=== PATIENT | female | born 1960 | race Caucasian/White ===

== ENCOUNTER 2018-04-19 14:00 | Emergency (ER) | payer MEDICAID, SELFPAY ==
[2018-04-19 14:09] VITALS: BP 137/85; PULSE 78; RESP 22; TEMP 36.7; O2SAT 97
--- NOTE | 2018-04-19 14:28 | ED.GENADUL_ITS ---
Disposition Clinical Impression: Periorbital cellulitis of left eye Disposition: HOME Condition: Good Instructions: Periorbital Cellulitis in Adults (ED) Additional Instructions: Please use warm compresses multiple times throughout the day. Please take the antibiotic as directed. Please use Tylenol Motrin for pain. If you notice any vision changes, worsening pain, fever, severe discharge, please return immediately for reevaluation. If you notice any worsening of your symptoms, or any new symptoms such as vomiting, diarrhea, fever, chills, shortness of breath , chest pain, numbness, weakness, or fainting , please return immediately to the emergency department for reevaluation. Please follow up with your primary care provider as soon as possible for reassessment and reevaluation. As always, it was a pleasure participating in your medical care today. Prescriptions: Clindamycin [Cleocin] 450 mg PO TID 7 Days cap Referrals: Renetta Flaherty [Primary Care Provider] - Medical Decision Making - Medical Decision Making This is a 58-year-old female who presents for evaluation of eye swelling. Her left lower eyelid is consistent with mild periorbital cellulitis. She has no significant drainage, no pain on movement of the eye whatsoever, no swelling or tenderness of the upper eyelid. Vision is intact. Swelling is very minimal, and redness is mild. No evidence of large abscess, or active purulent drainage. She is not on any immunosuppressants. She is not a contact lens wear. At this time I feel that her symptoms are secondary to very mild cellulitis which was most likely secondary to skin irritation and scratching from her dry eye before. Because of this I will start the patient on clindamycin, as well as recommend continued warm compresses for any plugged gland, and Tylenol Motrin. We discussed red flags which returned the patient understands. This time there is clinically no evidence of infection of the eye itself/septal cellulitis since there is only minimal pain, and no signs of systemic infection. No pain with movement of the eye. Feel the patient be safely discharged home. We discussed red flags which to return the patient understands. I have extensively reviewed the treatment plan and discharge instructions with the patient and their family. I have addressed all patient concerns at this time. The patient and family was made aware of what symptoms to monitor for that would warrant a return to the emergency department. Discussed the plan with the patient and family, they demonstrate verbal understanding and agreement with our assessment and plan at this time. History of Present Illness - General Chief complaint: EyeProblem Stated complaint: SWOLLEN EYE Time Seen by Provider: 04/19/18 14:25 - History of Present Illness Initial comments: This is a 58-year-old female with a past medical history of vitamin D deficiency, fibromyalgia, COPD who presents today for left eye pain. The patient states that last week she has been having mild dryness on her lower eyelid. She has been scratching it vigorously over the last 1-2 days. Then this morning when she woke up she noted notable swelling in her lower lid. There is also some associated redness, and minimal warmth. She does admit to an associated symptom of minimal drainage yesterday. No radiation of her symptoms. The patient has no vision changes, no pain with moving her eye. No systemic symptoms of fever or chills. She has no history of immunocompromise, does not take steroids. She has no other complaints at this time. She denies any recent surgeries. Denies any pertinent family history. - Related Data Bupropion HCl [Bupropion HCl Sr] 150 mg PO BID 11/08/12 Cetirizine HCl 10 mg PO DAILY 11/08/12 Gabapentin 300 mg PO TID 11/08/12 Hydrocodone Bit/Acetaminophen [Hydrocodon-Acetaminophn 10650] 1 each PO Q6H PRN 11/08/12 Meloxicam 7.5 mg PO DAILY 11/08/12 Omeprazole 20 mg PO DAILY 11/08/12 Tramadol HCl 2 tab PO Q8H PRN 11/08/12 Ibuprofen 800 mg PO TID #60 tablet 10/06/15 Albuterol Sulfate [Proventil Hfa] 2 puff IN PRN PRN 11/07/16 Clindamycin [Cleocin] 450 mg PO TID 7 Days cap 04/19/18 Allergies Allergy/AdvReac Type Severity Reaction Status Date / Time aspartame AdvReac Intermediate Other (See Unverified 04/19/18 14:18 Comment) codeine [Codeine] AdvReac Intermediate Headache Unverified 11/07/16 13:19 and vomiting Penicillins AdvReac Intermediate vomiting Unverified 11/07/16 13:19 Review of Systems Other: 10 point review of systems was performed, pertinent positives and negatives are noted in the history of present illness. Past Medical History - Past Medical History Medical history: arthritis, GERD Chronic back pain Family history: CAD/CA, hypertension - Social History Drug use: marijuana General Exam - Other Other exam information: 1.Const: Well-nourished, Well-developed, appearing stated age 2.Eyes: PERRL, no conjunctival injection, the patient's left lower lid is notably swelling, there is no active drainage. No evidence of focal chalazion or hordeolum. No conjunctival injection. No pain with movement of the eye. Normal vision bilaterally. EOMI, No nystagmus. no proptosis. No hyphema, no signs of trauma around the eye, no periorbital emphysema. Visual acuity as documented in chart. No evidence of swelling or pain for the upper lid. 3.ENT: Atraumatic external nose and ears. Moist MM. Neck: Symmetric, trachea midline, No thyromegaly. 4.CVS: +S1/S2, No murmurs or gallops. Peripheral pulses 2+ and equal in all extremities. Brisk capillary refill in all extremities. 5.RESP: Unlabored respiratory effort. Clear to auscultation bilaterally. No wheezes rales or rhonchi 6.GI: Soft, Nontender/Nondistended, No hepatosplenomegaly. No guarding or rebound. 7.MSK: Normocephalic/Atraumatic, Extremities w/o deformity or ttp No cyanosis or clubbing, Normal movement of all extremities 8.Skin: Warm, Dry. No rashes or lesions. 9.Neuro: diplomatic interpreter/translator II-XII grossly intact. Sensation grossly intact, no focal neurologic deficits. 10.Psych: (AAO) x3. Appropriate mood and affect Course Vital Signs - 24 hr 04/19/18 14:09 Temperature 36.7 C Pulse 78 Respiratory 22 Rate Blood Pressure 137/85 Pulse Oximetry 97
== END 2018-04-19 15:14 | disposition home or self-care (01) ==
LOC: ER 04-20 10:14
PROVIDERS: Emergency Provider Student in an Organized Health Care Education/Training Program; PCP Nurse Practitioner Family
DX: L03.213 Periorbital cellulitis (principal); J44.9 Chronic obstructive pulmonary disease, unspecified
CPT/HCPCS: 99283

== ENCOUNTER 2022-02-13 20:41 | Observation (INO) | payer MEDICAID, SELFPAY ==
[2022-02-13] VITALS (90 sets, daily range): BP systolic 102–147; BP diastolic 64–102; PULSE 118–137; RESP 12–42; O2SAT 78–98
--- NOTE | 2022-02-13 20:45 | RT.EKG_ITS ---
APPROVED REPORT Exam: Resting ECG Reason for Exam: SHORTNESS OF BREATH Patient Location: E HR:131 bpm ECG Measurements Heart Rate 131 AXIS NH 110 P 78 QRSd 81 QRS 83 QT 304 T 35 QTc 448 Conclusion Sinus tachycardia...rate> 99 Probable left atrial enlargement...P >50mS, <-0.10mV V1 sinus tachycardia, normal axis, normal intervals
--- NOTE | 2022-02-13 20:45 | DI.RAD_ITS ---
Exam(s) XR PORTABLE CHEST AP EXAM: XR PORTABLE CHEST AP CLINICAL HISTORY: sob TECHNIQUE: 2D digital imaging was performed of the chest. One image was obtained. An AP view was ob tained. COMPARISON: CR LEFT RIBS TO INCLUDE CXR from 12/31/2011 FINDINGS: MEDIASTINUM: Normal. HEART: Normal. PULMONARY VASCULATURE: Normal. LUNGS: There are mild increased lung markings in the bases. This may represent atelectasis. Develop ing pneumonia cannot be excluded. Please correlate clinically. PLEURAL SPACE: No pleural effusion or pneumothorax. BONE:Within normal limits for the patient's age. OTHER FINDINGS:Normal. IMPRESSION: Increased lung markings in the bases bilaterally. This may represent atelectasis or scarring. Devel oping pneumonia cannot be excluded. Please correlate clinically. DATA REPOSITORY: RADIATION DOSE DELIVERED:
--- OUTSIDE RECORDS SUMMARY | 2022-02-13 20:49 | XMS_ITS | Encounter Summary ---
:1960 Author Organization [facility] [place] [address] Care Team Providers Name Role Phone Eloy Levy MD Primary Care Provider Reason for Visit Reason Comments Snoring Encounter Details Date Type Department Care Team Description 08/09/[address] [facility] Natividad Hsu MD SHA (obstructive sleep apnea) (Primary D x); [facility] Snoring [address] [place] [address] SLEEP DISORDERS [phone] [place], [place] [address] (Wo rk) Social History Tobacco Use Types Packs/Day Years Used Date Never Assessed Alcohol Use Standard Drinks/Week Comments No 0 (1 standard drink = 0.6 oz pure alcoho l) Sex Assigned at Date Recorded Not on file documented as of this encounter Last Filed Vital Signs Vital Sign Reading Time Taken Comments Blood Pressure 142/99 08/09/2011 9:38 AM EST Pulse 88 08/09/2011 9:38 AM EST Temperature - - Respiratory Rate - - Oxygen Saturation - - Inhaled Oxygen Concentration - - Weight 100.2 kg (220 lb 14.4 oz) 08/09/2011 9:38 AM EST Height 165.1 cm (5' 5) 08/09/2011 9:38 AM EST Body Mass Index 36.76 08/09/2011 9:38 AM EST documented in this encounter Progress Notes Natividad Hsu MD - 08/09/2011 8:56 AM EST Sleep Medicine Consultation Note HPI: Ms. Jamir Severino is a 51 y.o. female seen at the request of Dr. Chinyere Jackson for advice regarding suspected obstructive sleep apnea. Sleep Apnea Risk: Snoring: yes Severity: loudly Frequency: every night Modifying factors: supine worse Over time: not sure how Observed Apneas: yes Mouth Breathing: yes, day as well, nasal fractures Dry Mouth: yes Nocturnal Gasping: yes Nasal Obstruction: yes Weight: gaining On pain medications for arthritis, bursitis - tossing and turning Sleep Pattern: Location: bedroom Bed/Recliner/Wedge: bed, 2 pillows Position: side Bedtime: 8:30, watches TV 30 - 60 min Lights out: 9:00 - 9:30 Latency: instant;u Awakenings: several times, sometimes long and sometimes Wake time: 7:30am Daytime Symptoms: [place]: 10/24 - ugly in the morning, nonrefreshing sleep Naps: couple times a week Involuntary Dozing:no Cognitive Symptoms: yes Driving: not driving now because anxiety Close calls related to sleepiness: no Accidents related to sleepiness: no Sleep Symptoms: Parasomnias: Sleep Walking: no Dream Enactment: no Bruxism: yes, no mouth guard, wears dentures Motor: RLS: no PLMS: no Narcolepsy: Hallucinations: no Paralysis: no Cataplexy: not done Past/Childhood Sleep History: probably snored, Family History: Family history of sleep disorders: mom and son snores Past Medical History: GERD Anxiety and depression Lower back pain, neck and shoulder - arthritis and bursitis Claustrophobia SOB on occasion, ? Asthma, cold air triggers, rare lung meds, quit smoking May Past Surgical History: Carpal tunnel bilateral Social History: Employment: disability, working on [email or web address] - [employer], [place] Alcohol: no Smoking: no Other drugs: no Caffeine: 3 cups of coffee Family: partner, 2 dogs, son/girlfriend 2 kids, cat, 2 rats, another 2 sons/girlfriend and child. ROS: CON: weight change: yes ENT: nasal obstruction: yes NEURO: sleep related headaches: often associated with sleep CV: chest pain: no Palpitations: no LE edema: sometimes PUL: ALEXANDER: yes PSY: Depression: yes Anxiety:yes GI: GERD: soemtimes : Nocturia: 2-3x MSK: Pain: yes ALL: Environmental Allergies: no MSE: Alert and appropriate: yes Mood: normal Affect: pleasant, interactive, good eye contact PE: BP 142/99 Pulse 88 Ht 165.1 cm (5' 5) Wt 100.2 kg (220 lb 14.4 oz) BMI 36.76 kg/m2 Repeat BP 144/104, 89 General: alert, pleasant Eyes: Conjunctivae: clear EOM: Full, BECKIE ENT: MP: 3, poor nasal airflow - worse on left than right, large tongue, + upper and lower dentures Pul: Respirations: NAD Auscultation: clear Cardiac: RRR, no murmurs Neck/Lymphatics: Circumference: 17 1/2 Neuro: normal gait and stance Assessment: Ms. Jamir Severino is a 51 y.o. female who is seen to evaluate for possible obstructive sleep apnea. The pathophysiology of, the reasons to treat and treatment options for obstructive sleep apnea were all reviewed in detail with the patient today. She has multiple risk factors includingloud snoring, pauses, nonrefreshing sleep and a narrow posterior pharynx. She is agreeable to undergo testing and consider treatment. Diagnostic Codes: SHA 327.23 Time spent face to face: 40 min Time spent devoted to counseling and discussion: 25min Reccomendations: 1) Polysomnography 2) Driving safety was reviewed with patient. If the patient feels too sleepy to drive he/she knows not to drive. If he/she becomes sleepy while driving he/she will sheeting puller and nap. (She currently does not drive due to anxiety issues.) The patient indicates understanding of these issues and agrees with the plan. Natividad Hsu MD documented in this encounter Plan of Treatment Not on filedocumented as of this encounter Visit Diagnoses Diagnosis SHA (obstructive sleep apnea) - Primary Obstructive sleep apnea (adult) (pediatr ic) Snoring Other dyspnea and respiratory abnormalit y documented in this encounter Care Teams Hazmat Tanker Driver Relationship Specialty Start Date End Date Eloy Levy MD PCP - General 07/12/10 documented as of this encounter
--- OUTSIDE RECORDS SUMMARY | 2022-02-13 20:49 | XMS_ITS | Encounter Summary ---
:1960 Author Organization [facility] Address [address] [place] [id number] Care Team Providers Name Role Phone Eloy Levy MD Primary Care Provider Reason for Visit Reason Comments Obstructive Sleep Apnea Encounter Details Date Type Department Care Team Description 10/02/2011 Procedure visit Sleep Medicine Natividad Hsu MD SHA (obstructive [facility] sle ep apnea) Drive (Primary Dx) [place] [address] SLEEP DISORDERS [phone] [place] [address] Social History Tobacco Use Types Packs/Day Years Used Date Never Assessed Alcohol Use Standard Drinks/Week Comments No 0 (1 standard drink = 0.6 oz pure alcoho l) Sex Assigned at Date Recorded Not on file documented as of this encounter Last Filed Vital Signs Vital Sign Reading Time Taken Comments Blood Pressure 130/80 10/02/2011 6:22 PM EST Pulse 91 10/02/2011 6:22 PM EST Temperature - - Respiratory Rate 12 10/02/2011 6:22 PM EST Oxygen Saturation - - Inhaled Oxygen Concentration - - Weight 105.2 kg (232 lb) 10/02/2011 6:22 PM EST Height 162.6 cm (5' 4) 10/02/2011 6:22 PM EST Body Mass Index 39.82 10/02/2011 6:22 PM EST documented in this encounter Progress Notes Natividad Hsu MD - 10/13/2011 2:47 PM EST Overnight Polysomnogram Report - CPAP Titration DATE OF : 1960 History: Jamir Severino is a 51-year-old female who was seen in my clinic for the evaluation of sleep-disordered breathing. She reported a long-standing history of loud snoring associated with pauses. She reported non-refreshing sleep, and clinical evaluation was highly suggestive of sleep apnea. She was referred for an overnight polysomnogram that documented evidence of significant obstructive sleep apnea with an overall AHI of 45 events per hour. Oxygen saturations to a low of 88% occurred. Given these findings, she was referred for a repeat overnight polysomnogram for CPAP titration. Polysomnography: The patient's sleep was evaluated for [facility] at [facility]. Sleep was monitored in accordance with recommended AASM guidelines. The recording also included oral/nasal airflow, chest and abdominal respiratory effort, nasal pressure, single channel EKG, intercostal EMG, bilateral tibialis EMG, and oxygen saturation (by pulse oximeter). Sleep architecture: A standard montage was utilized with CPAP titration throughout the night. The test was initiated at 9:46 p.m. and discontinued at 5:58 a.m. The total sleep time recorded was 397 minutes with a reduced sleep efficiency of 81%. Sleep onset latency was prolonged at 39 minutes. A review of sleep architecture showed all stages of sleep including slow wave sleep (22% of the total sleep time) and REM sleep (12% of the total sleep time). Only one distinct episode of REM sleep was noted. No other major EEG abnormalities were identified. Respiratory: CPAP was initiated from the start of the night at a pressure of 4 and titrated to maximum pressure of 10. Only a brief amount of time was seen at a pressure of 10. At the lower pressures tested, clear ongoing events with snoring were noted. At a pressure of 6, the patient was observed in a lateral position during slow wave sleep. Relatively limited events were noted. The pressure was increased to 7 with similar results. The patient turned to the supine position at that point, and there was some slight worsening. The pressure was increased to 8 cm, and limited events were seen with good maintenance of oxygen saturation. The pressure was then increased to 9 with similar results. The patient awoke, turned laterally, and had evidence of sleep onset central events with elevation in leak. This resolved, and the patient entered REM sleep. The technologist did drop the pressure to 8 when a flurry of central apneas was noted during REM sleep. The patient continued to have good treatment of sleep-disordered breathing at that point. The pressure was then increased again to 9 cm when she turned supine. Occasional snores were identified. The patient then developed a round of significant periodic limb movements. Near the end of that session, it became difficult to differentiate between subtle upper airway obstruction and limb movements. The mask utilized was a Mclaughlin II nasal pillow mask without chinstrap. Cardiac: Normal sinus rhythm was seen throughout the study with no significant dysrhythmias noted. Comments: Frequent periodic limb movements were seen during three short sections of the study. This elevated the periodic limb movement index to 36 events per hour; however, there were long sections in the study where periodic limb movements were absent. About half of these movements were associated with arousals, the other half not. Overall the technical quality of this study was adequate. On the post study questionnaire, the patient reported sleeping much better and feeling much better in the morning than typical for home. She chose [employer] as her homecare company. Impression: 1. Obstructive sleep apnea. 2. Periodic limb movements. Recommendations: This patient has clinically significant sleep-disordered breathing noted on a previous test. CPAP therapy did improve the appearance of these events markedly; however, it was difficult to choose one single pressure to assure adequate treatment in all positions in all stages of sleep. Given that the patient almost exclusively sleeps on her side at home, I would recommend initiating at a pressure of 8 cm and monitoring the download report for effectiveness and her clinical response. Higher pressures could be considered in the future versus an auto-titration range. Careful monitoring for mouth opening is also suggested with consideration of a chinstrap. The patient may do better with a different nasal pillow mask such as the Mclaughlin FX or Mclaughlin LT. I will ask the homecare company to show her these styles and have her choose the best fit. The patient will be contacted with these results and set up in the near future. Follow up in my clinic in approximately six weeks' time. Final Diagnosis: Obstructive sleep apnea. ICSD Code: 327.23. Natividad Hsu MD Discussed results with patient; she would like to follow up at [facility] if possible. Patient Name:Jamir Severino Project: CPAP Sex: Female Study Date: 10/02/2011 Date of : 1960 Subject Code: 99590929 Age: 51 [facility] #: [id number] Height: 5'4 Referring Physician: Renetta Krystina, PRIMARY CARE MD Weight: 232.0 lbs. Sleep Specialist: Giancarlo JeanI: 39.8 Sleep Architecture Start Time ?? Lights Off: 09:46:15 End Time ?? Lights On: 05:58:24 Total Recording Time (TRT): 492.2 min. Total Sleep Period (TSP): 452.9 min. Total Sleep Time (TST): 397.4 min. Sleep Efficiency: 80.8 % Sleep Onset: 39.2 min. Total Stage Shifts: 77 Transitions to Stage 1: 27 Total Awakenings: 14 REM Periods: 1 REM Latency: 205.0 min. REM Latency (minus Wake time): 166.5 min. Stage Results Time (min.) % TST Latency (min.) Wake (after sleep onset): 55.5 - - Stage 1: 32.0 8.1 39.2 Stage 2: 231.5 58.2 0.5 Stage 3: 86.5 21.8 88.5 Stage 4: 0.0 0.0 n.a REM: 47.0 11.8 205.0 Spontaneous Arousals* Total NREM REM Count: 176 172 4 Index (events/hr): 26.6 29.5 5.1 * (EEG Arousal activity not associated with Respiratory or PLM events). Respiratory Effort-Related Arousals (RERAs) Total NREM REM Supine Non-Supine Count: 0 0 0 0 0 Index (events/hr): 0.0 0.0 0.0 0.0 0.0 Apneas & Hypopneas Central Obstructive Mixed Total Total Apnea Apnea Apnea Apneas Hypopneas Count: 36 1 0 37 56 Index (events/hr.): 5.4 0.2 0.0 5.6 8.5 Mean Duration (sec.): 12.3 10.0 N/A 12.2 16.1 Longest Event (sec.): 19.8 10.0 N/A 19.8 25.0 REM Count: 16 0 0 16 1 NREM Count: 20 1 0 21 55 REM Index: 20.4 0.0 0.0 20.4 1.3 NREM Index: 3.4 0.2 0.0 3.6 9.4 Apneas & Hypopneas (by Body-Position) Total Supine Non-Supine Count: 93 54 39 Index (events/hr): 14.1 19.1 10.3 Apneas & Hypopneas* Central Obstructive Mixed Total Total Apnea Apnea Apnea Apneas Hypopneas Count: 36 1 0 37 12 Index (events/hr.): 5.4 0.2 0.0 5.6 1.8 Mean Duration (sec.): 12.3 10.0 N/A 12.2 16.3 Longest Event (sec.): 19.8 10.0 N/A 19.8 21.4 REM Count: 16 0 0 16 0 NREM Count: 20 1 0 21 12 REM Index: 20.4 0.0 0.0 20.4 0.0 NREM Index: 3.4 0.2 0.0 3.6 2.1 Apneas & Hypopneas* (by Body-Position) Total Supine Non-Supine Count: 49 18 31 Index (events/hr): 7.4 6.4 8.2 * Results include only hypopneas with desaturations ? 4%. Respiratory Arousals* Total NREM REM Count: 58 55 3 Index (events/hr): 8.8 9.4 3.8 * Respiratory Arousals include Apnea arousals, Hypopnea arousals and RERAs. Periodic Limb Movements Total PLMs PLMs w/ Arousals (by Sleep Stages) Count Index Count Index Total Sleep: 243 36.7 99 14.9 Stage 1: 34 63.7 22 41.2 Stage 2: 190 49.2 76 19.7 Stage 3: 19 13.2 1 0.7 Stage 4: 0 0.0 0 0.0 REM: 0 0.0 0 0.0 NREM: 243 41.7 99 17.0 Wake (after Lights Off): 4 2.5 3 1.9 Oxygen Saturation Wake NREM REM TST Mean SaO2%: 94.2 94.4 96.7 94.7 Min. SaO2%: 81.0 83.0 88.0 83.0 Max. SaO2%: 99.0 99.0 99.0 99.0 % Time of SaO2 in range 90 - 100%: 96.3 99.4 99.4 99.4 80 - 90%: 1.1 0.6 0.6 0.6 70 - 80%: 0.0 0.0 0.0 0.0 60 - 70%: 0.0 0.0 0.0 0.0 50 - 60%: 0.0 0.0 0.0 0.0 ? 50%: 0.0 0.0 0.0 0.0 % Artifact / Bad Data: 2.6 0.0 0.0 0.0 Total duration with SaO2 < 89%: 0.8 min. Total duration with SaO2 < 88%: 0.5 min. A. Titration Analysis Chart (Duration & Respiratory) Pressure TIME RESPIRATORY Level Total REM NREM Supine Non-Supine Central Obs. Mixed Hypop- Total Supine Non-Supine (cm. H2O) (min.) (min.) (min.) (min.) (min.) Apnea Apnea Apnea jackeline A + H AHI AHI CPAP = 4 37.7 0.0 0.0 0.0 0.0 0 0 0 0 0 0.0 0.0 CPAP = 5 95.2 0.0 57.2 28.5 28.7 1 0 0 27 28 48.4 10.5 CPAP = 6 38.4 0.0 38.4 0.0 38.4 0 0 0 1 1 0.0 1.6 CPAP = 7 16.7 0.0 16.2 4.8 11.4 0 1 0 2 3 37.5 0.0 CPAP = 8 123.7 25.0 94.2 35.7 83.5 13 0 0 3 16 5.0 9.3 CPAP = 9 179.9 22.0 144.0 101.0 65.0 22 0 0 23 45 14.9 18.5 B. Titration Analysis Chart (Oxygen Saturation) Pressure OXIMETRY ?? Total Time Level Mean Min. Max. (cm. H2O) SaO2% SaO2% SaO2% CPAP = 4 93.1 87.0 98.0 CPAP = 5 94.0 88.0 98.0 CPAP = 6 94.0 92.0 96.0 CPAP = 7 94.3 83.0 99.0 CPAP = 8 94.8 89.0 99.0 CPAP = 9 95.3 81.0 99.0 documented in this encounter Plan of Treatment Not on filedocumented as of this encounter Visit Diagnoses Diagnosis SHA (obstructive sleep apnea) - Primary Obstructive sleep apnea (adult) (pediatr ic) documented in this encounter Care Teams First Coat Operator Relationship Specialty Start Date End Date Eloy Levy MD PCP - General 07/12/10 documented as of this encounter
--- OUTSIDE RECORDS SUMMARY | 2022-02-13 20:49 | XMS_ITS | Encounter Summary ---
:1960 Author Organization [facility] [place] [address] Care Team Providers Name Role Phone Eloy Levy MD Primary Care Provider Reason for Visit Reason Comments Obstructive Sleep Apnea Encounter Details Date Type Department Care Team Description 05/15/2012 Office Visit [facility] Natividad Hsu MD SHA (obstructive sleep apnea) (Primary D x); [facility] [address] [place] [address] SLEEP DISORDERS [phone] [place], [place] [address] (Wo rk) Social History Tobacco Use Types Packs/Day Years Used Date Never Assessed Alcohol Use Standard Drinks/Week Comments No 0 (1 standard drink = 0.6 oz pure alcoho l) Sex Assigned at Date Recorded Not on file documented as of this encounter Last Filed Vital Signs Vital Sign Reading Time Taken Comments Blood Pressure 131/86 05/15/2012 12:14 PM EDT Pulse 81 05/15/2012 12:14 PM EDT Temperature - - Respiratory Rate - - Oxygen Saturation - - Inhaled Oxygen Concentration - - Weight 99.8 kg (220 lb) 05/15/2012 12:14 PM EDT by repo rt Height 165.1 cm (5' 5) 05/15/2012 12:14 PM EDT Body Mass Index 36.61 05/15/2012 12:14 PM EDT documented in this encounter Progress Notes Natividad Hsu MD - 05/21/2012 5:42 PM EDT Addended by: NATIVIDAD HSU on: 05/21/2012 Modules accepted: Orders Natividad Hsu MD - 05/21/2012 5:40 PM EDT Addendum: Download reviewed. Excellent nightly use. VS and RERA index still a little high but improved at 10 compared to 8. Some central events though (and these were noted on occasion during sleep study.) Given her elevated ESS (although this may be associated with medications as well), I would suggest a trial of AUTO 10 -14 to see if this may improve the number of events. Follow up with me in 6 months to review her response, but she should call if problems arise. Orders will be [facility] to [facility] but thechanges will be made to her card before I mail it back. Natividad Hsu MD Natividad Palencia MD - 05/15/2012 12:08 PM EDT Sleep Medicine Follow-Up Note HPI: Ms. Jamir Severino is a 52 y.o. female seen at for follow-up regarding obstructive sleep apnea. 1/2 PPD No pneumonia recently Sinuses getting congested Uses CPAP every night Nasal mask - end of No chinstrap Jaw clenching Pinch nerve in the neck - new medication -?gabapentin Treatment: CPAP Pressure: 10cm Interface: nasal mask Fit: good Chin strap: no Patient perceived outcome: overall going well Ongoing Snoring: no Mouth Breathing: no Dry Mouth: no Nocturnal Gasping: no ROS: ENT: Nasal Obstruction: no CONSTITUTIONAL: Weight: some weight loss lately Still smoking 1/2 PPD, discussed smoking cessation - preco Sleep Pattern: Better quality, more refreshed Daytime Symptoms: [place]: 08/12 Naps: no Involuntary Dozing: yes Driving: no Close calls related to sleepiness: no Accidents related to sleepiness: no Past Medical History: Past Medical History Diagnosis Date ??? Sinusitis ??? Headache ??? Arthritis ??? Back pain ??? Obesity ??? GERD (gastroesophageal reflux disease) ??? SHA (obstructive sleep apnea) 12/06/2011 PE: BP 131/86 Pulse 81 Ht 165.1 cm (5' 5) Wt 99.791 kg (220 lb) BMI 36.61 kg/m2 General: Alert, pleasant, no distress No mask trauma Assessment: Ms. Jamir Severino is a 52 y.o. female who is seen for follow-up of obstructive sleepapnea. Overall, things are going well - she is able to use nightly and has improved sleep. Her ESS is still elevated however. I will review her download to ensure adequate time and control of events. If SHA is well controlled, it is likely that her medications may be contributing to sleepiness. Regular mask replacements discussed. Nasal allergies and sinus congestion are present associated with the season. Zyrtec has worked well before for her and not lead to sedation. I have reordered this medication. No other changes are suggested at this time. Time spent face to face: 20 min Time spent devoted to counseling and discussion: 15 min Reccomendations: 1) Review download to ensure adequate control of VSI. 2) Follow-up dependent on download. My email was given to help with contact if problems arise. The patient indicates understanding of these issues and agrees with the plan. Natividad Hsu MD documented in this encounter Plan of Treatment Not on filedocumented as of this encounter Visit Diagnoses Diagnosis SHA (obstructive sleep apnea) - Primary Obstructive sleep apnea (adult) (pediatr ic) Rhinitis Chronic rhinitis documented in this encounter Care Teams Fuel Assembler Relationship Specialty Start Date End Date Eloy Levy MD PCP - General 07/12/10 documented as of this encounter
--- OUTSIDE RECORDS SUMMARY | 2022-02-13 20:49 | XMS_ITS | Clinical Summary ---
:1960 Author Organization [facility] [place] [address] Care Team Providers Name Role Phone Eloy Levy MD Primary Care Provider Allergies Active Allergy Reactions Severity Noted Date Comments Codeine 08/09/2011 Latex 05/15/2012 Penicillins 08/09/2011 Medications Medication Sig Dispensed Refills Start Date End Date Status diclofenac-misoprostol 0 09/18/2002 Active (ARTHROTEC 75) 75-200 mg-mcg per tablet omeprazole (PRILOSEC) Take 20 mg by 0 Active 20 mg capsule mouth daily. FLUoxetine (PROZAC) 40 Take 40 mg by 0 Active mg capsule mouth daily. traMADol (ULTRAM) 50 mg Take 50 mg by 0 Active tablet mouth every 6 hours as needed. LORazepam (ATIVAN) 0.5 Take 0.5 mg by 0 Active mg tablet mouth every 6 hours as needed. hydrOXYzine (ATARAX) 25 Take 25 mg by 0 Active mg tablet mouth 3 times daily as needed. cetirizine (ZYRTEC) 10 Take 1 tablet by 60 tablet 3 05/15/2012 Active mg tablet mouth daily. Active Problems Problem Noted Date SHA (obstructive sleep apnea) 12/06/2011 Overview: Diagnosed with severe SHA, AHI 45/hr, CP AP titration, initiated on CPAP 8cm - 12/06/2011 Follow up visit: VS high, n o pressure intolerance, very dry nasal passages with mouth dryness, no humidifier because of insurance --> increase to 10cm, order heated humidifier Social History Tobacco Use Types Packs/Day Years Used Date Never Assessed Alcohol Use Standard Drinks/Week Comments No 0 (1 standard drink = 0.6 oz pure alcoho l) Sex Assigned at Date Recorded Not on file Last Filed Vital Signs Vital Sign Reading Time Taken Comments Blood Pressure 131/86 05/15/2012 12:14 PM EDT Pulse 81 05/15/2012 12:14 PM EDT Temperature - - Respiratory Rate 12 10/02/2011 6:22 PM EST Oxygen Saturation - - Inhaled Oxygen Concentration - - Weight 99.8 kg (220 lb) 05/15/2012 12:14 PM EDT by repo rt Height 165.1 cm (5' 5) 05/15/2012 12:14 PM EDT Body Mass Index 36.61 05/15/2012 12:14 PM EDT Plan of Treatment Health Maintenance Due Date Last Done Comments Covid-19 Vaccine (#1) 01/23/1965 HIV screen 01/23/1978 Hepatitis C Screening 01/23/1978 Tdap adult 01/23/1979 Tetanus vaccine 01/23/1979 HPV test 01/23/1990 PAP Smear 01/23/1990 Breast Cancer Share Decision Needed 2000 Colonoscopy 01/23/2005 Breast Cancer screening 01/23/2010 Zoster vaccine (1 of 2) 01/23/2010 Advance Directive 01/23/2015 Influenza (Flu) vaccine (1 of 1 - Influenza standard 04/20/2021 series) Care Teams Cotton Puller Relationship Specialty Start Date End Date Eloy Levy MD PCP - General 07/12/10
--- OUTSIDE RECORDS SUMMARY | 2022-02-13 20:49 | XMS_ITS | Encounter Summary ---
:1960 Author Organization [facility] [place] [address] Care Team Providers Name Role Phone Eloy Vora MD Primary Care Provider Reason for Visit Reason Comments Obstructive Sleep Apnea Encounter Details Date Type Department Care Team Description 09/11/2011 Procedure visit Sleep Medicine Hanna Larsen, SHA ([facility] MD sleep apnea) [facility] (Primary Dx) [place] [id number] [facility] [place] [address] Social History Tobacco Use Types Packs/Day Years Used Date Never Assessed Alcohol Use Standard Drinks/Week Comments No 0 (1 standard drink = 0.6 oz pure alcoho l) Sex Assigned at Date Recorded Not on file documented as of this encounter Last Filed Vital Signs Vital Sign Reading Time Taken Comments Blood Pressure 126/91 09/11/2011 8:00 PM EST Pulse 74 09/11/2011 8:00 PM EST Temperature - - Respiratory Rate 11 09/11/2011 8:00 PM EST Oxygen Saturation - - Inhaled Oxygen Concentration - - Weight 101.2 kg (223 lb 3.2 oz) 09/11/2011 8:00 PM EST Height 162.6 cm (5' 4) 09/11/2011 8:00 PM EST Body Mass Index 38.31 09/11/2011 8:00 PM EST documented in this encounter Progress Notes Natividad Hsu MD - 09/20/2011 11:02 AM EST I reviewed the polysomnography in its entirety. I have reviewed Dr. Larsen's note and agree with the findings and recommendations. NATIVIDAD HSU MD Hanna Larsen MD - 09/12/2011 10:20 AM EST REPORT OF DIAGNOTIC POLYSOMNOGRAM IDENTIFYING INFORMATION Patient's Name: Jamir Severino Date of : 1960 REFERRING PHYSICIAN: STEPHANIE BRANCH APRN PRIMARY CARE PHYSICIAN: ELOY VORA MD Date of Service: 09/11/11 Identification: Jamir Severino is a 51 y.o. female with a history of obesity, anxiety and snoringwho presents for a polysomnogram. Polysomnography: The patient's sleep [facility] Sleep was monitored in accordance with recommended AASM guidelines. The recording also included oral/nasal airflow, chest and abdominal respiratory effort, nasal pressure, single channel EKG, intercostal EMG, bilateral tibialis EMG, and oxygen saturation (by pulse oximeter). Findings: - Sleep/EEG: The study started at 10:39 pm and ended at 6:34 am, yielding a total recording time (TRT) of 7 hours and 55 minutes. The patient demonstrated a 10 Hz alpha rhythm when awake with eyes closed. The sleep onset latency was approximately 12 minutes. Sleep efficiency was estimated to be reduced. Sleep stages captured were N1, N2, N3 and R. The REM onset latency was delayed at approximately 2 hrs and 35 minutes; two distinct periods of lateral REM sleep were observed. Supine REM sleep was notcaptured. - Respiratory: The baseline oxygen saturation (SpO2) during the study was 97 %. Snoring and obstructive respiratory events were noted in all stages of sleep. The patient's obstructive respiratory events were primarily characterized by obstructive hypopneas associated with 3 and 4% oxygen desaturations. Obstructive hypopneas were more severe in the supine position compared to the lateral position; however obstructive events were observed laterally as well. Obstructive apneas were not observed with any frequency. The SpO2 alyse of 88 % was associated with obstructive events in supine NREM. Overall the patient was estimated to meet criteria for severe obstructive sleep apnea. The patient's AHI is 45.4. - EKG: Normal sinus rhythm, no significant ectopy observed. - EMG: Increased frequency of periodic leg movements were noted. Overall, PLM index was 24. Normal atonia of REM sleep was observed. - Technical Limitations: None Patient comments: The patient reports sleeping worse than she does at home. Assessment: Jamir Severino is a 51 y.o. female with a history of obesity, anxiety and snoring whose polysomnogram reveals severe obstructive sleep apnea. This degree of SHA is likely impacting her quality of sleep as well as increasing her risk of hypertension, heart disease and stroke. Increased fr equency of PLMs was noted, but interpretation of leg movements is difficult in the present of frequent obstructive respiratoy events. The patient was interested in a trial of CPAP, but would prefer to do the study at [facility], as it is closer to her home. ICSD diagnosis (code): 327.23 Provisional: Final: Obstructive sleep apnea. Recommendations: 1. Study results and treatment options/recommendations were relayed to the patient in person the morning following the PSG. 2. CPAP trial at [facility]. 3. Follow-up will be arranged after reviewing the CPAP titration study results. The study was reviewed and case discussed with Dr. Hsu who participated in the formulation of the above assessment and plan. Patient Name: Jamir Severino Study Date: 09/11/2011 Sex: Female Subject Code: [id number] Date of : 1960 Referring Physician: Krystina Jackson M.D. Age: 51 Sleep Specialist: Britt Jean M.D. Height: 64.0 Techs: MZB /Demi Weight: 223.2 Project: PSG B.M.I: 38.3 Ectopy: None Noted EKG: NSR Sleep Architecture Start Time: Lights Off: 10:39:23 PM End Time: Lights On: 6:34:01 AM Total Recording Time (TRT): 474.6 Total Sleep Period (TSP): 466.6 Total Sleep Time (TST): 394.0 Sleep Efficiency: 83.0% Sleep Onset: 8.0 Total Stage Shifts: 140 WASO: 72.6 Total Awakenings: 32 REM Periods: 2 REM Latency: 156.0 REM Latency (minus Wake time): 138.0 Stage Results Time (min.) % TST Latency (min.) Wake (after sleep onset): 72.6 - - Stage N1: 45.0 11.4% 0.0 Stage N2: 254.5 64.6% 6.0 Stage N3: 40.0 10.2% 46.0 REM: 54.5 13.8% 156.0 Respiratory Events Central Obstructive Mixed Total Apnea Apnea Apnea Apneas RERA Count: 1 0 0 1 0 Index (events/hr.): 0.2 0.0 0.0 0.2 0.0 Mean Duration (sec.): 11.5 N/A N/A 11.5 N/A Longest Event (sec.): 11.5 N/A N/A 11.5 N/A REM Count: 1 0 0 1 0 NREM Count: 0 0 0 0 0 REM Index: 1.1 0.0 0.0 1.1 0.0 NREM Index: 0.0 0.0 0.0 0.0 0.0 Respiratory Events (cont) Hypopneas Hypopneas Apneas + OD 4% OD 3%/AR Hypopneas Count: 199 98 298 Index (events/hr.): 30.3 14.9 45.4 Mean Duration (sec.): 22.8 19.5 21.6 Longest Event (sec.): 38.7 36.1 38.7 REM Count: 17 6 24 NREM Count: 182 92 274 REM Index: 18.7 6.6 26.4 NREM Index: 32.2 16.3 48.4 Respiratory Body Position Supine Supine Prone Prone Left Body Position Count Index Count Index Count Duration: 3:15:30 0:00:00 0:53:30 Obstructive Apneas: 0 0.0 N/A N/A 0 Central Apneas: 0 0.0 N/A N/A 0 Mixed Apneas: 0 0.0 N/A N/A 0 Hypopnea OD 4%: 165 50.6 N/A N/A 4 Hypopnea OD 3%: 64 19.6 N/A N/A 6 RERA???s: 0 0.0 N/A N/A 0 Total: 229 70.3 N/A N/A 10 Respiratory Events Events Left Right Right Upright Upright Body Position (cont) Index Count Index Count Index Duration: 2:25:00 0:00:00 Obstructive Apneas: 0.0 0 0.0 N/A N/A Central Apneas: 0.0 1 0.4 N/A N/A Mixed Apneas: 0.0 0 0.0 N/A N/A Hypopnea OD 4%: 4.5 30 12.4 N/A N/A Hypopnea OD 3%: 6.7 28 11.6 N/A N/A RERA???s: 0.0 0 0.0 N/A N/A Total: 11.2 59 24.4 N/A N/A Body Position Supine Prone Left Right Upright Duration (Min): 195.5 0.0 53.5 145.0 0.0 % TST: 49.6% 0.0% 13.6% 36.8% 0.0% Respiratory Arousals Total NREM REM Respiratory Count: 298 274 24 Respiratory Index (events/hr): 45.4 48.4 26.4 Spontaneous Count: 253 237 16 Spontaneous Index (events/hr): 38.5 41.9 17.6 Total Count: 597 557 40 Total Index (events/hr): 90.9 98.4 44.0 Limb Movements LMs w Arousals LMs w/o Arousals Total LMs (by Sleep Stages) Count Index Count Index Count Index Total Sleep: 46 7.0 113 17.2 159 24.2 N1: 2 2.7 7 9.3 9 12.0 N2: 44 10.4 106 25.0 150 35.4 N3: 0 0.0 0 0.0 0 0.0 REM: 0 0.0 0 0.0 0 0.0 Oxygen Desaturation Count Index Total Sleep Time: 184 28.0 Wake (after sleep onset): 1 0.8 Non-REM: 167 29.5 REM: 17 29.5 Total Recording Time: 185 23.4 Oxygen Saturation Wake NREM REM TST TIB Mean SaO2%: 95.4 94.7 94.1 94.6 94.7 Min. SaO2%: 86.0 88.0 86.0 86.0 86.0 Max. SaO2%: 100.0 100.0 98.0 100.0 100.0 SaO2 < 89% (min): 0.3 1.0 0.8 1.8 2.1 SaO2 < 88% (min): 0.1 0.2 0.1 0.4 0.4 % Time of SaO2 in range 90 - 100%: 99.2% 99.1% 96.2% 98.7% 98.8% 80 - 90%: 0.8% 0.9% 3.8% 1.3% 1.2% 70 - 80%: 0.0% 0.0% 0.0% 0.0% 0.0% 60 - 70%: 0.0% 0.0% 0.0% 0.0% 0.0% 50 - 60%: 0.0% 0.0% 0.0% 0.0% 0.0% ? 50%: 0.0% 0.0% 0.0% 0.0% 0.0% % Artifact / Bad Data: 0.0% 0.0% 0.0% 0.0% 0.0% ETCO2 Wake NREM REM TST TIB Mean ETCO2: N/A N/A N/A N/A N/A Min. ETCO2: N/A N/A N/A N/A N/A Max. ETCO2: N/A N/A N/A N/A N/A % Time of ETCO2 in range > 80 (mmHg): 0.0% 0.0% 0.0% 0.0% 0.0% 70 - 80 (mmHg): 0.0% 0.0% 0.0% 0.0% 0.0% 60 - 69 (mmHg): 0.0% 0.0% 0.0% 0.0% 0.0% 55 - 59 (mmHg): 0.0% 0.0% 0.0% 0.0% 0.0% 50 - 54 (mmHg): 0.0% 0.0% 0.0% 0.0% 0.0% 45 - 49 (mmHg): 0.0% 0.0% 0.0% 0.0% 0.0% 40 - 44 (mmHg): 0.0% 0.0% 0.0% 0.0% 0.0% 35 - 39 (mmHg): 0.0% 0.0% 0.0% 0.0% 0.0% 30 - 34 (mmHg): 0.0% 0.0% 0.0% 0.0% 0.0% 20 - 29 (mmHg): 0.0% 0.0% 0.0% 0.0% 0.0% 0 - 20 (mmHg): 0.0% 0.0% 0.0% 0.0% 0.0% % Artifact / Bad Data: 100.0% 100.0% 100.0% 100.0% 100.0% Heart Rate Wake NREM REM TST TIB Mean HR (bpm): 79.1 79.9 83.8 80.4 80.2 Min. HR (bpm): 68.0 67.0 73.0 67.0 67.0 Max. HR (bpm): 97.0 98.0 93.0 98.0 98.0 % Time in range > 100 (bpm): 0.0% 0.0% 0.0% 0.0% 0.0% 90 - 100 (bpm): 1.9% 0.3% 4.4% 0.9% 1.1% 80 - 90 (bpm): 31.0% 43.3% 77.2% 48.0% 45.1% 70 - 80 (bpm): 65.9% 55.5% 18.4% 50.4% 53.0% 60 - 70 (bpm): 1.2% 0.9% 0.0% 0.7% 0.8% 50 - 60 (bpm): 0.0% 0.0% 0.0% 0.0% 0.0% ? 50 (bpm): 0.0% 0.0% 0.0% 0.0% 0.0% % Artifact / Bad Data: 0.0% 0.0% 0.0% 0.0% 0.0% documented in this encounter Plan of Treatment Not on filedocumented as of this encounter Visit Diagnoses Diagnosis SHA (obstructive sleep apnea) - Primary Obstructive sleep apnea (adult) (pediatr ic) documented in this encounter Care Teams Fast Food Team Member Relationship Specialty Start Date End Date Eloy Vora MD PCP - General 07/12/10 documented as of this encounter
--- OUTSIDE RECORDS SUMMARY | 2022-02-13 20:49 | XMS_ITS | Encounter Summary ---
:1960 [place] [address] Care Team Providers Name Role Phone Eloy Levy MD Primary Care Provider Reason for Visit Reason Comments Obstructive Sleep Apnea Encounter Details Date Type Department Care Team Description 12/06/2011 Office Visit [facility] Natividad Hsu MD SHA ([facility] sleep apnea) (Primary [address] Dx) [place] [address] SLEEP DISORDERS [phone] [place], [place] [address] (Wo rk) Social History Tobacco Use Types Packs/Day Years Used Date Never Assessed Alcohol Use Standard Drinks/Week Comments No 0 (1 standard drink = 0.6 oz pure alcoho l) Sex Assigned at Date Recorded Not on file documented as of this encounter Last Filed Vital Signs Vital Sign Reading Time Taken Comments Blood Pressure 110/90 12/06/2011 12:25 PM EDT Pulse 76 12/06/2011 12:25 PM EDT Temperature - - Respiratory Rate - - Oxygen Saturation - - Inhaled Oxygen Concentration - - Weight - - Height - - Body Mass Index - - documented in this encounter Progress Notes Natividad Hsu MD - 12/06/2011 12:14 PM EDT Sleep Medicine Follow-Up Note HPI: Ms. Jamir Severino is a 51 y.o. female seen at for follow-up regarding obstructive sleep apnea. She was diagnosed with severe SHA, AHI 45/hr, CPAP titration, initiated on CPAP 8cm. She now returns for her first follow up. Overall, she has done well with CPAP reporting consistent use and improvement in sleep. She stopped use of the chinstrap within 2 days. No mouth dryness regularly, maybe occasionally. However, her nasal passages and sinuses are really dry without nose bleeds. The humidifer was not dispensed due to her insurance coverage. Currently she has been diagnosed with pneumonia, has a bad cough, significant congestion and wheezing, but is improving on her antibiotics. She wants to try a full facemask now to see if this may improve her comfort particularly during this time. Treatment: CPAP Pressure: 8cm Interface: nasal pillows Fit: good Chin strap: no Patient perceived outcome: Quality and sometimes even the length of sleep is better. Original symptoms from consult much improved. No need to nap, sleep refreshing, not 'ugly' in the morning. Ongoing Snoring: sleeps alone Mouth Breathing: no Dry Mouth: rare Nocturnal Gasping: no ROS: ENT: Nasal Obstruction: yes, due to URTI/LRTI CONSTITUTIONAL: Weight: stable Sleep Pattern: Routine Daytime Symptoms: [place]: not done today Naps: no Involuntary Dozing: no Driving: no Close calls related to sleepiness: no Accidents related to sleepiness: no Compliance Card Data: Date Range: 10/19 - 11/20 [place] Residual AHI: 3.4 Vibratory Snore Index: high % Night in Large Leak: 0 Average usage days used: 8 r 4 min % Days used: 82% of nights > 4 hr, meets insurance requirements Past Medical History Diagnosis Date ??? Sinusitis ??? Headache ??? Arthritis ??? Back pain ??? Obesity ??? GERD (gastroesophageal reflux disease) ??? SHA (obstructive sleep apnea) 12/06/2011 PE: BP 110/90 Pulse 76 Alert, pleasant, congested cough with wheezing No crackles or egophony HS RRR No mask trauma Assessment: Ms. Jamir Severino is a 51 y.o. female who is seen for follow-up of obstructive sleepapnea. We reviewed her final results, discussed chronic management of SHA, and she is willing to continue. I would recommend increasing the pressure to 10cm; however, she will require a heated humidifier due to her symptoms of dryness that will surely worsen with the higher pressure. Orders will be submitted for this and a full facemask fitting. Follow up with me in 2 - 3 months. If she does not tolerate the pressure change, she knows to call the office. Time spent face to face: 25 min Time spent devoted to counseling and discussion: 15 min Reccomendations: 1) CPAP at 10 cm, order heated humidifier, full facmask fitting 2) Follow-up 2-3 mo The patient indicates understanding of these issues and agrees with the plan. Natividad Hsu MD documented in this encounter Plan of Treatment Not on filedocumented as of this encounter Visit Diagnoses Diagnosis SHA (obstructive sleep apnea) - Primary Obstructive sleep apnea (adult) (pediatr ic) documented in this encounter Care Teams Head Of Business Development Relationship Specialty Start Date End Date Eloy Levy MD PCP - General 07/12/10 documented as of this encounter
--- OUTSIDE RECORDS SUMMARY | 2022-02-13 20:50 | XMS_ITS | Encounter Summary ---
:1960 Author Organization [facility] Address [address] [place] [address] Care Team Providers Name Role Phone Krystina Renetta Beth [facility] Primary Care Provider [phone] Encounter Details Date Type Department Care Team Description 10/24/2016 Historical Results [facility] - Mercedez Flaherty geovani Only [facility] Lab - Main [facility] C, HOURLY SALES STAFF [address] [place] [address] [place], [place] [address] Social History Tobacco Use Types Packs/Day Years Used Date Current Every Day Smoker 0.5 Sex Assigned at Date Recorded Not on file documented as of this encounter Plan of Treatment Not on filedocumented as of this encounter Procedures Procedure Name Priority Date/Time Associated Diagnosis Comme nts DRUG SCREEN, Routine 10/24/2016 17:07 Results for this PRESCRIPTION/OTC, EST procedure are in URINE the results section. documented in this encounter Results (ABNORMAL) DRUG SCREEN, PRESCRIPTION/OTC, URINE (10/24/2016 17:07 EST) AMPHETAMINES NEG NEG [facility] BARBITURATES,UR - NEG NEG [facility] BENZODIAZEPINES POS (A) NEG [facility] COCAINE,URINE - [facility] NEG NEG [facility] MAMP NEG NEG [place] (METHAMPHETAMINES - [facility] CENTER LAB MARIJUANA,URINE - POS (A) NEG [facility] MTD (METHADONE) - NEG NEG [facility] OPIATES,URINE - [facility] NEG NEG [facility] OXY (OXYCODONE) - NEG NEG [facility] PCP (PHENCYCLIDINE) NEG NEG [facility] PROPOXYPHENE (PPX) - NEG NEG [facility] TRICYCLIC NEG NEG [facility] - Comment: [facility] Drug Class ?Cutoff Concent ration CENTER LAB Amphetamines (AMP) ?500 ng /ml Barbiturates (BAR) ?200 ng /ml Benzodiazepines (BZO) ? 150 ng/m l Cocaine (ELIZABETH) ? 150 ng/ml Methamphetamine (mAMP) ?500 ng/m l Methadone (MTD) ? 200 n g/ml Opiates (OPI) ? 100 ng/ml Oxycodone (OXY) ? 100 n g/ml Phencyclidine (PCP) ?25 ng /ml Tetrahydrocannabinol (THC) ? 50 ng/ml Propoxyphene (PPX) ?300 ng /ml Tricyclic antidepressants (TCA) ? 300 ng/ml *Unconfirmed screening results are to be used for medi dorina purposes only.* Specimen Performing Organization Address City/State/ZIP Code Phon e Number [facility] [address] LAB documented in this encounter Visit Diagnoses Not on filedocumented in this encounter Care Teams Design Engineer Relationship Specialty Start Date End Date Renetta Flaherty, LUIS PCP - General 03/28/12 [address] [place] [address] documented as of this encounter
--- OUTSIDE RECORDS SUMMARY | 2022-02-13 20:50 | XMS_ITS | Encounter Summary ---
:1960 Author Organization [facility] Address [address] [place] [address] Care Team Providers Name Role Phone Renetta Flaherty BOAT DIESEL MOTOR MECHANIC Primary Care Provider [phone] Encounter Details Date Type Department Care Team Description 05/21/2017 Historical Results [facility] - Leandro Pruitt, Only [facility] [place] [address] [place] [address] [facility] [phone] [address] [place] [address] Social History Tobacco Use Types Packs/Day Years Used Date Current Every Day Smoker 0.5 Sex Assigned at Date Recorded Not on file documented as of this encounter Plan of Treatment Not on filedocumented as of this encounter Procedures Procedure Name Priority Date/Time Associated Comments Diagnosis VIT D, 25-HYDROXY - Routine 05/21/2017 14:50 Resu lts for this [facility] EDT procedure are i n the results section. HEPATITIS C AB W Routine 05/21/2017 14:50 Results for this REFLEX TO HCV RNA BY EDT procedu re are in PCR the results section. PTH INTACT Routine 05/21/2017 14:50 Results for this EDT procedure are i n the results section. ZZELECTROPHORESIS, Routine 05/21/2017 14:50 Resul ts for this URINE RANDOM EDT procedure are i n the results section. TSH Routine 05/21/2017 14:50 Results for this EDT procedure are i n the results section. VITAMIN B12 Routine 05/21/2017 14:50 Results for this EDT procedure are i n the results section. COMPREHENSIVE Routine 05/21/2017 14:50 Results fo r this METABOLIC PANEL (CMP) EDT proced ure are in the results section. documented in this encounter Results (ABNORMAL) VIT D, 25-HYDROXY - [facility] (05/21/2017 14:50 EDT) [facility] VIT D, 25 HYDROXY 11 (L) 30 - 100 [facility] Comment: ng/ml [facility] ? 25-Hydroxy D Total (D2+D3) ?Expected Values Deficient: ?<10 ng/ml Insufficient: ? 10-29 ng/ml Sufficient: ? 30-100 ng/ml Potential intoxication: >100 ng/ml Specimen Narrative [facility] - 017 15:42 EDT Does PT Have a Latex Allergy? NO Performing Organization Address City/State/ZIP Code Phon e Number [facility] [address] LAB (ABNORMAL) COMPREHENSIVE METABOLIC PANEL (CMP) (05/21/2017 14:50 EDT) [facility] ALBUMIN - [facility] 3.7 3.4 - 5.0 [facility] g/dL [facility] ALKALINE 105 41 - 126 U/L [facility] PHOSPHATASE [facility] BILIRUBIN TOTAL 0.4 0.0 - 1.0 [facility] mg/dL [facility] BUN - [facility] 8 7 - 18 mg/dL [facility] CALCIUM - [facility] 8.9 8.5 - 10.1 [facility] mg/dL [facility] Chloride 108 (H) 98 - 107 [facility] mEq/L [facility] CO2 Total 26 21 - 32 mEq/L [facility] CREATININE 0.80 0.5 - 1.3 [facility] mg/dL [facility] eGFR >60 [facility] Comment: [facility] Chronic renal impairment is defined as GFR <60 Multiply result by 1.210 for patients . eGFR calculated using the IDMS-traceable MDRD Study Equation. ??(effective 06/22/2014) Anion Gap 5 5 - 15 [facility] GLUCOSE - [facility] 109 (H) 70 - 100 [facility] mg/dL [facility] Potassium 4.3 3.5 - 5.0 [facility] mEq/L [facility] Sodium 139 135 - 145 [facility] mEq/L [facility] TOTAL PROTEIN - 7.9 6.4 - 8.2 [facility] gm/dl [facility]ENTER LAB SGOT/AST - [facility] 9 (L) 10 - 37 U/L [facility] SGPT/ALT - [facility] 15 12 - 78 U/L [facility] Specimen Narrative [facility] - 15:42 EDT Does PT Have a Latex Allergy? NO Performing Organization Address City/[facility]/ZIP Code Phon e Number [facility] [address] LAB VITAMIN B12 (05/21/2017 14:50 EDT) Pathologist Sig nature VITAMIN B12 - [facility] 273 211 - 911 pg/mL [facility] Specimen Narrative [facility] - 15:42 EDT Does PT Have a Latex Allergy? NO Performing Organization Address City/[facility]/ZIP Code Phon e Number [facility] [address] LAB HEPATITIS C AB W REFLEX TO HCV RNA BY PCR (05/21/2017 14:50 EDT) HEPATITIS C AB NegativeComment: [facility] W/REFLEX - [facility] Expected Values: [facility] Negative. Specimen Narrative [facility] - 16:21 EDT Does PT Have a Latex Allergy? NO Enter/Edit CPT and ICD codes? N Performing Organization Address [facility]/ZIP Code Phon e Number [facility] [address] LAB (ABNORMAL) PTH INTACT (05/21/2017 14:50 EDT) Intact PTH 93.5 (H) 7.5 - 53.5 [facility] Comment: pg/mL [facility] Parathyroid hormone (PTH) values should be interpreted in conjunction with serum calcium and phosphorus levels, and the overall clinical presentation and history of the patient. About 90% of the patients with primary hyperparathyroi dism have elevated parathyroid hormone (PTH) levels. The remaining patients have normal (inappropriate for the elevated calcium level) PTH levels. A low or normal PTH in a patient with hypocalcemia sug gests hypoparathyroidism, provided the serum magnesium level is normal. Specimen Narrative [facility] - 017 13:51 EDT Does PT Have a Latex Allergy? NO Performing Organization Address [facility] Phon e Number [facility] [address] [place], [place] [address] [place] [address] LAB TSH (05/21/2017 14:50 EDT) Pathologist Sig nature THYROID STIM HORMONE 1.62 0.35 - 5.50 [facility] uIU/mL CENTER LAB Specimen Narrative [facility] - 017 15:41 EDT Does PT Have a Latex Allergy? NO Performing Organization Address [facility] Phon e Number [facility] [address] LAB (ABNORMAL) ELECTROPHORESIS, URINE RANDOM (05/21/2017 14:50 EDT) ALPHA 1 - [facility] 5.0 (A) 2.9 - 4.9 % [facility] ALPHA 2 - [facility] 11.4 7.1 - 11.8 % [facility] ALBUMIN - [facility] 56.9 55.8 - 66.1 % [facility] BETA - [facility] 11.4 8.4 - 13.1 % [facility] COMMENTS - [facility] SEE COMMENTS () [facility] Comment: [facility] No apparent monoclonal protein on serum electrophoresis. See supplementary report Test Performed by: [place] [address] Engineer Soils: Doug Moreland MD , Ph D Gamma % 15.3 11.1 - 18.8 % [facility] Protein, 24H 7.5 6.3 - 8.2 [facility] Urine g/dl [facility] Specimen Narrative [facility] - 017 20:19 EDT Does PT Have a Latex Allergy? NO Performing Organization Address [facility] Phon e Number [facility] [address] [place] [address] [facility] documented in this encounter Visit Diagnoses Not on filedocumented in this encounter Care Teams Leaf Sucker Operator Relationship Specialty Start Date End Date Renetta Flaherty, LUIS PCP - General 03/28/12 [address] [address] documented as of this encounter
--- OUTSIDE RECORDS SUMMARY | 2022-02-13 20:50 | XMS_ITS | Encounter Summary ---
:1960 Author Organization [facility] Address [address] [place] [address] Care Team Providers Name Role Phone Renetta Flaherty FACILITIES MAINTENANCE TECHNICIAN Primary Care Provider [phone] Encounter Details Date Type Department Care Team Description 12/11/2014 Historical Results [facility] - Mercedez Flaherty geovani Only [facility] Radiology Resul ts C, FACILITIES MAINTENANCE TECHNICIAN [address] [place] [address] [place] [address] [phone] Social History Tobacco Use Types Packs/Day Years Used Date Current Every Day Smoker 0.5 Sex Assigned at Date Recorded Not on file documented as of this encounter Plan of Treatment Not on filedocumented as of this encounter Procedures Procedure Name Priority Date/Time Associated Diagnosis Comme nts XR LUMBAR SPINE 12/11/2014 10:49 Results for this COMPLETE WITH EDT procedure are in FLEX/EXT AND the results OBLIQUES MIN 6 section. VIEWS documented in this encounter Results XR LUMBAR SPINE COMPLETE WITH FLEX/EXT AND OBLIQUES MIN 6 VIEWS (12/11/2014 10:49 EDT) Specimen Narrative [facility] - 12/11/2014 10:53 EDT ? EXAM: RADIOLOGY/LUMBAR SPINE WITH FLEX/EX EX. D/ (1512) ? CLINICAL INFORMATION: ? LUMBAR RADICULOPATHY; DDD LUMBOSA CRAL; ? BULGING LUMBAR DISC ? INDICATION: Back pain. ? TECHNIQUE: 4 view lumbar spine wi th flexion-extension views. ? COMPARISON: None ? FINDINGS: ? There is a minimal convex right l umbar scoliosis. The lumbar ? vertebral bodies maintain normal height. Early lower lumbar spine ? hypertrophic facet disease is see n. Early lower lumbar spine ? degenerative disc space narrowing is noted. ? Impression: ? 1. Mild convex right lumbar scoli osis with early lower lumbar spine ? degenerative disc and facet disea se. ? REPORT SIGNED IN OTHER VENDOR SYSTEM 12/11/2014 ?Reported B y: Cody Henderson MD ? CC: ? Transcribed Date/Time: 12/11/2014 (5803) ? Unix System Administrator: ? Printed Date/Time: 01/21/2019 (12 00) ? PAGE 1 ? Shonda d Report ? Procedure Note Cody Henderson MD - 06/24/2019 EXAM: RADIOLOGY/LUMBAR SPINE WITH FLEX/ EX EX. D/ (1512) CLINICAL INFORMATION: LUMBAR RADICULOPATHY; DDD LUMBOSACRAL; BULGING LUMBAR DISC INDICATION: Back pain. TECHNIQUE: 4 view lumbar spine with fle xion-extension views. COMPARISON: None FINDINGS: There is a minimal convex right lumbar scoliosis. The lumbar vertebral bodies maintain normal height . Early lower lumbar spine hypertrophic facet disease is seen. Ear ly lower lumbar spine degenerative disc space narrowing is no martha. Impression: 1. Mild convex right lumbar scoliosis w ith early lower lumbar spine degenerative disc and facet disease. REPORT SIGNED IN OTHER VENDOR SYSTEM 12/11/2014 Reported By: Cody Henderson MD CC: Transcribed Date/Time: 12/11/2014 (1053 ) Unix System Administrator: Printed Date/Time: 01/21/2019 (5021) PAGE 1 Signed Report Performing Organization Address City/State/ZIP Code Phon e Number [facility] documented in this encounter Visit Diagnoses Not on filedocumented in this encounter Care Teams Extra Hand Relationship Specialty Start Date End Date Renetta Flaherty FNP PCP - General 03/28/12 [address] [place] [address] documented as of this encounter
--- OUTSIDE RECORDS SUMMARY | 2022-02-13 20:50 | XMS_ITS | Encounter Summary ---
:1960 Author Organization [facility] Address [address] [place] [address] Care Team Providers Name Role Phone Unknown, Provider Primary Care Provider Renetta Flaherty VOCATIONAL EDUCATION PROFESSIONAL Primary Care Provider [phone] Encounter Details Date Type Department Care Team Description 02/01/2011 Historical Results [facility] - Mercedez Flaherty geovani Only [facility] - Main [facility] Ignacia, VOCATIONAL EDUCATION PROFESSIONAL [address] [place] [address] [place] [address] [phone] Social History Tobacco Use Types Packs/Day Years Used Date Never Assessed Sex Assigned at Date Recorded Not on file documented as of this encounter Plan of Treatment Not on filedocumented as of this encounter Procedures Procedure Name Priority Date/Time Associated Diagnosis Comme nts PAP TEST Routine 02/01/2011 Results for thi s procedure are in the resu lts section. documented in this encounter Results PAP TEST (02/01/2011) Specimen Narrative [facility] - 011 14:01 EDT Name: NATALY MTZ ?: 60 ?Age/Sex: 59/F ?Unit#: [id number] ? Loc: CVPC ?Status: REG POV ?? Reg Date: 02/01/11 ? Pt.Phone Number : ? Specimen: [id number] ?STA TUS: SOUT ?Spec Date:02/01/11 ? Physician Copies: ?Renetta Flaherty Tissues: ? Cervical/Endo Pap ? CPT: 44116 ?? Units: ??1 ? CYTOLOGY DIAGNOSIS SPECIMEN ADEQUACY: ?Satisfactory for evaluation. Transformation zone component ABSENT. GENERAL CATEGORIZATION: ?Negative fo r Intraepithelial Lesion or Malignancy DESCRIPTIVE DIAGNOSIS: ? Negative fo r Intraepithelial Lesion or Malignancy. RECOMMENDATIONS/COMMENTS: ?None. ?HPV DNA RESULTS ?? 02/01/112037 HPV DNA RESULT ??POS ? Positive for on e or more of HPV types 16, 18, 31, 33, 35, ? 39, 45, 51, 52, 56, 58, 59, 66, or 68. ? Method: Cervist a HPV HR (High Risk) DNA test. ORDER QUERIES: LMP: 5 YEARS - 5 YRS ?Pregnan t? N Post ? N ??PREVIOUS ATYPICAL: Y BCP/HRT? N Rad Rx? N IUD? N ??PAP PLUS HPV? Y ??REFLEX TO HR-HPV IF ASCUS ?? REFLEX TO HPV 16/18 IF HPV POS/PAP NEG ?? HPV REGARDLESS?RFLX HPV IF LSIL ?? IF ASCUS DO HPV? Y Signed Yennifer Laboy CT(ASCP) 02/07/11 By the signature above, the attending ph ysician certifies that he/she has personally conducted a gross and/or microscopic exa mination of the described specimens and rendered or confirmed the above diagnosi s. Test Performed by [facility], [address] [place] [id number] Cigar Head Stringer: Lima Berrios MD PHD Performing Organization Address City/State/[facility] Code Phon e Number [facility] [address] [place] [id number] [place] [address] LAB documented in this encounter Visit Diagnoses Not on filedocumented in this encounter Care Teams Computing Services Director Relationship Specialty Start Date End Date Unknown, Provider, PCP - General 03/15/12 03/27/12 Renetta Flaherty FNP PCP - General 03/28/12 [address] [place] [address] documented as of this encounter
--- OUTSIDE RECORDS SUMMARY | 2022-02-13 20:50 | XMS_ITS | Encounter Summary ---
:1960 Author Organization [facility] Address [address] [place] [address] Care Team Providers Name Role Phone Renetta Flaherty COMPLIANCE CLERK Primary Care Provider [phone] Encounter Details Date Type Department Care Team Description 11/09/2015 Historical Results [facility] - Mercedez Flaherty geovani Only [facility] Radiology Resul ts C, COMPLIANCE CLERK [address] [place] [address] [place] [address] [phone] Social History Tobacco Use Types Packs/Day Years Used Date Current Every Day Smoker 0.5 Sex Assigned at Date Recorded Not on file documented as of this encounter Plan of Treatment Not on filedocumented as of this encounter Procedures Procedure Name Priority Date/Time Associated Diagnosis Comme nts XR CHEST 2 VIEWS 11/09/2015 15:11 EDT Res ults for this procedure are i n the results section. documented in this encounter Results XR CHEST 2 VIEWS (11/09/2015 15:11 EDT) Specimen Narrative [facility] - 11/09/2015 15:16 EDT ? EXAM: RADIOLOGY/CHEST (PA ?? LAT) ?EX. D/ (1504) ? CLINICAL INFORMATION: ? F17.00 SMOKER ? CHEST (PA ?? LAT) ? Signs and Symptoms/Comments: ??F1 7.00 SMOKER ? Comparisons: 01/23/2014, 12/04/2011. CT chest 04/04/2011. ? Findings: ? PA and lateral views of the chest were performed. Hyperinflation and ? biapical lucency correspond to ce ntrilobular emphysema on prior CT. ? No acute lung findings are identi fied. No pneumothorax or pleural ? effusion is present. The cardiome diastinal silhouette and pulmonary ? vascularity are normal. The osseo us structures are unremarkable. ? IMPRESSION: ? Emphysema. No acute cardiopulmona ry process. ? REPORT SIGNED IN OTHER VENDOR SYSTEM 11/09/2015 ?Reported B y: Christopher Leiva MD ? CC: ? Transcribed Date/Time: 11/09/2015 (1516) ? Restaurant Operations Manager: ? Printed Date/Time: 01/30/2019 (12 32) ? PAGE 1 ? Shonda d Report ? Procedure Note Christopher Leiva MD - 06/25/2019 EXAM: RADIOLOGY/CHEST (PA LAT) EX. D/ (1504) CLINICAL INFORMATION: F17.00 SMOKER CHEST (PA LAT) Signs and Symptoms/Comments: F17.00 SMO KER Comparisons: 01/23/2014, 12/04/2011. CT ch est 04/04/2011. Findings: PA and lateral views of the chest were performed. Hyperinflation and biapical lucency correspond to centrilo bular emphysema on prior CT. No acute lung findings are identified. No pneumothorax or pleural effusion is present. The cardiomediasti nal silhouette and pulmonary vascularity are normal. The osseous str uctures are unremarkable. IMPRESSION: Emphysema. No acute cardiopulmonary pro cess. REPORT SIGNED IN OTHER VENDOR SYSTEM 11/09/2015 Reported By: Christopher Leiva MD CC: Transcribed Date/Time: 11/09/2015 (5161 ) Restaurant Operations Manager: Printed Date/Time: 01/30/2019 (2426) PAGE 1 Signed Report Performing Organization Address City/State/ZIP Code Phon e Number [facility] documented in this encounter Visit Diagnoses Not on filedocumented in this encounter Care Teams Preschool Assistant Teacher Relationship Specialty Start Date End Date Renetta Flaherty, LUIS PCP - General 03/28/[address] [place] [address] documented as of this encounter
--- OUTSIDE RECORDS SUMMARY | 2022-02-13 20:50 | XMS_ITS | Encounter Summary ---
:1960 Author Organization [facility] Address [address] [place] [address] Care Team Providers Name Role Phone Renetta Flaherty Ignacia SAFETY FIRE BOSS Primary Care Provider [phone] Reason for Visit Vascular Lab (Routine) - Authorization Not Required Specialty Diagnoses / Procedures Referred By Contact Refer red To Contact Diagnoses Bilateral non-palpable femoral pulses Antony Mckeon, Procedures US CHRIS AND PHYSIOLOGIC STUDY [facility] [address] [place] [address] Referral ID Status Reason Start Expiration Visits Visits Date Date Requested Authorized [id number] Authorization Not 02/05/2020 1 1 Required Encounter Details Date Type Department Care Team Description 03/04/2020 Ancillary Procedure [facility] Bi lateral non-palpable Vascular Surgery - femoral p [facility] [address] [place] [address] Social History Tobacco Use Types Packs/Day Years Used Date Current Every Day Smoker 0.5 Sex Assigned at Date Recorded Not on file documented as of this encounter Plan of Treatment Not on filedocumented as of this encounter Procedures Procedure Name Priority Date/Time Associated Comments Diagnosis US CHRIS AND Routine 03/04/2020 9:45 Bilateral Results for this PHYSIOLOGIC STUDY EDT non-palpable procedure are in femoral pulses the results section. documented in this encounter Results US ANKLE/BRACHIAL INDEX (SINGLE LEVEL) (03/04/2020 9:45 EDT) Pathologist Sig nature Right arm BP 166 mmHg [facility] RIGHT CHRIS DIGIT 46 mmHg [facility] Right TBI 0.28 [facility] Right posterior tibial 185 mmHg [facility] RTDOPED 167 mmHg [facility] Right CHRIS 1.11 [facility] Anatomical Region Laterality Modality Vascular Ultrasound Specimen Narrative [facility] - 05/10/2020 10:11 EDT Right lower extremity: ??normal physiologic testing at the ankle, hallux index diminished at 0.24. ??Evidence of small vessel disease. Left lower extremity: ??normal physiolog ic testing at the ankle, hallux index is normal at 0.74. ??No evidence o f arterial insufficiency at rest. Performing Organization Address City/State/ZIP Code Phon e Number [facility] documented in this encounter Visit Diagnoses Diagnosis Bilateral non-palpable femoral pulses documented in this encounter Care Teams Multisensor Intelligence Officer Relationship Specialty Start Date End Date Renetta Flaherty FNP PCP - General 03/28/12 [address] [place] [address] documented as of this encounter
--- OUTSIDE RECORDS SUMMARY | 2022-02-13 20:50 | XMS_ITS | Encounter Summary ---
:1960 Author Organization [facility] Address [address] [place] [address] Care Team Providers Name Role Phone Renetta Flaherty Primary Care Provider [phone] Encounter Details Date Type Department Care Team Description 11/09/2015 Hospital Encounter [facility] [phone] [address] [facility] (Work) [place] [address] Social History Tobacco Use Types Packs/Day Years Used Date Current Every Day Smoker 0.5 Sex Assigned at Date Recorded Not on file documented as of this encounter Medications at Time of Discharge Medication Sig Dispensed Refills Start Date End Date ASPIRIN/ACETAMINOPHEN/CAF Take 2 Caps by mouth 4 0 FEINE (EXCEDRIN MIGRAINE times daily. ORAL) gabapentin (NEURONTIN) 1 pill at bedtime for 3 days , then increase to 1 pill twice daily for 3 days, then 1 pill three times daily. You may increase by 1 pill every 2-3 days as needed. Max 900 mg three times daily. 90 Cap 2 04/01/2012 300 mg capsule OMEPRAZOLE ORAL Take 1 Cap by mouth 0 daily. documented as of this encounter Discharge Disposition Disposition Code Departure Means Destination Home or Self Shelter documented in this encounter Plan of Treatment Not on filedocumented as of this encounter Visit Diagnoses Not on filedocumented in this encounter Care Teams Corporate Lawyer Relationship Specialty Start Date End Date Renetta Flaherty FNP PCP - General 03/28/12 [address] [place], [place] [id number] documented as of this encounter
--- OUTSIDE RECORDS SUMMARY | 2022-02-13 20:50 | XMS_ITS | Encounter Summary ---
:1960 Author Organization [facility] Address [address] [place] [address] Care Team Providers Name Role Phone Renetta Flaherty Primary Care Provider [phone] Encounter Details Date Type Department Care Team Description 07/20/2015 Hospital Encounter [facility] [phone] [address] [facility] (Work) [place] [address] Social History Tobacco Use Types [...] Code Departure Means Destination Home or Self Halfway documented in this encounter Plan of Treatment Not on filedocumented as of this encounter Visit Diagnoses Not on filedocumented in this encounter Care Teams Recreation Attendant Supervisor Relationship Specialty Start Date End Date Renetta Flaherty FNP PCP - General 03/28/12 [address] [place], [place] [id number] documented as of this encounter
--- OUTSIDE RECORDS SUMMARY | 2022-02-13 20:50 | XMS_ITS | Encounter Summary ---
:1960 Author Organization [facility] Address [address] [place] [address] Care Team Providers Name Role Phone Krystina Renetta Beth COMMERCIAL REAL ESTATE AGENT Primary Care Provider [phone] Encounter Details Date Type Department Care Team Description 2018 Historical Results [facility] - Mercedez Flaherty geovani Only [facility] [place] [place] Lab - Main [facility] C, COMMERCIAL REAL ESTATE AGENT [address] [place] [address] [place], [place] [address] Social History Tobacco Use Types Packs/Day Years Used Date Current Every Day Smoker 0.5 Sex Assigned at Date Recorded Not on file documented as of this encounter Plan of Treatment Not on filedocumented as of this encounter Procedures Procedure Name Priority Date/Time Associated Diagnosis Comme nts DRUG SCREEN, Routine 2018 13:13 Results for this PRESCRIPTION/OTC, EDT procedure are in URINE the results section. documented in this encounter Results (ABNORMAL) DRUG SCREEN, PRESCRIPTION/OTC, URINE (2018 13:13 EDT) AMPHETAMINES NEG NEG [facility] BARBITURATES,UR - NEG NEG [facility] BENZODIAZEPINES NEG NEG [facility] COCAINE,URINE - [facility] [place] [place] NEG NEG [facility] MAMP NEG NEG [place] (METHAMPHETAMINES - [facility] MARIJUANA,URINE - POS (A) NEG [facility] MTD (METHADONE) - NEG NEG [facility] OPIATES,URINE - [facility] [place] [place] NEG NEG [facility] OXY (OXYCODONE) - NEG NEG [facility] PCP (PHENCYCLIDINE) NEG NEG [facility] PROPOXYPHENE (PPX) - NEG NEG [facility] TRICYCLIC NEG NEG [place] ANTIDEPRESSANTS - Comment: [facility] Drug Class ?Cutoff Concent ration CENTER LAB [...] /ml Tricyclic antidepressants (TCA) ? 300 ng/ml This is a screening assay only, intended for use in inical monitoring or management of patients. False positive o r false negative results can occur. If confirmation test ing is needed, please call the lab. Specimens are retained in the laboratory for 7 days. Specimen Performing Organization Address City/State/ZIP Code Phon e Number [facility] [address] [facility] [facility] documented in this encounter Visit Diagnoses Not on filedocumented in this encounter Care Teams Buyer Agent Relationship Specialty Start Date End Date Renetta Flaherty FNP PCP - General 03/28/12 [address] [place] [address] documented as of this encounter
--- OUTSIDE RECORDS SUMMARY | 2022-02-13 20:50 | XMS_ITS | Encounter Summary ---
:1960 Author Organization [facility] Address [address] [place] [address] Care Team Providers Name Role Phone Krystina Renetta C PARTS INSPECTOR Primary Care Provider [phone] Encounter Details Date Type Department Care Team Description 08/02/2017 Historical Results [facility] - [place]ced[place] Flaherty geovani Only [facility] Lab - [place] C, PARTS INSPECTOR [address] [place] [address] [place] [address] [phone] Social History Tobacco Use Types Packs/Day Years Used Date Current Every Day Smoker 0.5 Sex Assigned at Date Recorded Not on file documented as of this encounter Plan of Treatment Not on filedocumented as of this encounter Procedures Procedure Name Priority Date/Time Associated Comments Diagnosis DRUG SCREEN, Routine 08/02/2017 14:44 Results for this PRESCRIPTION/OTC, URINE EST proc edure are in the results section. HUMAN PAPILLOMAVIRUS Routine 08/02/2017 10:13 Res ults for this (HPV) DETECTION-HIGH EST procedu re are in RISK TYPES the results section. PAP TEST Routine 08/02/2017 9:49 Results for this EST procedure are i n the results section. documented in this encounter Results (ABNORMAL) DRUG SCREEN, PRESCRIPTION/OTC, URINE (08/02/2017 14:44 EST) AMPHETAMINES NEG NEG [facility] BARBITURATES,UR - NEG NEG [facility] BENZODIAZEPINES NEG NEG [facility] COCAINE,URINE - [facility] NEG NEG [facility] MAMP NEG NEG [place] (METHAMPHETAMINES - [facility] MARIJUANA,URINE - POS (A) NEG [facility] MTD (METHADONE) - NEG NEG [facility] OPIATES,URINE - [facility] NEG NEG [facility] OXY (OXYCODONE) - NEG NEG [facility] PCP (PHENCYCLIDINE) NEG NEG [facility] PROPOXYPHENE (PPX) - NEG NEG [facility] TRICYCLIC NEG NEG [place] ANTIDEPRESSANTS - Comment: [facility] Drug Class ?Cutoff Concent [facility] CENTER LAB Amphetamines (AMP) ?500 ng /ml [...] screening assay only, intended for use in cl inical monitoring or management of patients. False positive o r false negative results can occur. If confirmation test ing is needed, please call the lab. Specimens are retained in the laboratory for 7 days. Specimen Performing Organization Address [facility] Code Phon e Number [facility] [address] [place] [address] [facility] HUMAN PAPILLOMAVIRUS (HPV) DETECTION-HIGH RISK TYPES (08/02/2017 10:13 EST) Human Papillomavirus NEG [facility] (HPV) Detection-High Comment: [facility] Types Negative for HPV types 16, 18, 31, 33, 35, 39, 45, 51, 52, 56, 58, 59, 66, 68. Method: Cervista HPV HR (High Risk) DNA test. Specimen Performing Organization Address [facility] Phon e Number [facility] [address] [place] [address] [facility] PAP TEST (08/02/2017 9:49 EST) Specimen Narrative [facility] - 017 11:32 EST Name: NATALY MTZ ?: 60 ?Age/Sex: 59/F ?Unit#: [id number] ? Loc: CVPC ?Status: REG POV ?? Reg Date: 08/02/17 ? Pt.Phone Number : ? Specimen: [id number] ?ROBERTO CORBIN: CHRIS ?Spec Date:08/02/17 ? Physician Copies: ?Renetta Flaherty Tissues: ? Cervical/Endo Pap ? CPT: 35320 ?? Units: ??1 ? CYTOLOGY DIAGNOSIS SPECIMEN ADEQUACY: ?Satisfactory for evaluation. Transformation zone component present. GENERAL CATEGORIZATION: ?Negative fo r Intraepithelial Lesion or Malignancy DESCRIPTIVE DIAGNOSIS: ?? Shift in mago present suggestive of bacterial vaginosis. ?HPV DNA RESULTS ? LABORATORY ?? Date ? Time Test ?Result ?? Flag ?Normal Range ?? 08/02/17 1013 HPV DNA RESULT ??NEG ? Negative for HP V types 16, 18, 31, 33, 35, 39, 45, 51, 52, ? 56, 58, 59, 66, 68. ? Method: Cervist a HPV HR (High Risk) DNA test. ORDER QUERIES: LMP: N/A ? - N/A ?Preg nant? N Post ? N ??PREVIOUS ATYPICAL: N BCP/HRT? N Rad Rx? N IUD? N ??PAP PLUS HPV? Y ??REFLEX TO HR-HPV IF ASCUS Y REFLEX TO HPV 16/18 IF HPV POS/PAP NEG Y HPV REGARDLESS? N ??RFLX HPV IF LSIL ?? Signed Samson thy,N CT(ASCP) 08/09/17 By the signature above, the attending ph ysician certifies that he/she has personally conducted a gross and/or microscopic exa mination of the described specimens and rendered or confirmed the above diagnosi s. Test Performed by [facility], [address] [facility] [address] Painter Sign Maintenance: Lima Berrios MD PHD Performing Organization Address City/State/ZIP Code Phon e Number [facility] [address] [place], [place] [id number] [place] [address] LAB documented in this encounter Visit Diagnoses Not on filedocumented in this encounter Care Teams Mortgage Lender Relationship Specialty Start Date End Date Renetta Flaherty FNP PCP - General 03/28/12 [address] [place], [place] [address] documented as of this encounter
--- OUTSIDE RECORDS SUMMARY | 2022-02-13 20:50 | XMS_ITS | Encounter Summary ---
:1960 Author Organization [facility] Address [address] [place] [address] Care Team Providers Name Role Phone Renetta Flaherty Primary Care Provider [phone] Encounter Details Date Type Department Care Team Description 03/05/2017 Hospital Encounter [facility] [phone] [address] [facility] (Work) [place] [address] Social History Tobacco Use Types [...] Code Departure Means Destination Home or Self Half-Way documented in this encounter Plan of Treatment Not on filedocumented as of this encounter Visit Diagnoses Not on filedocumented in this encounter Care Teams Corporate Planning Manager Relationship Specialty Start Date End Date Renetta Flaherty FNP PCP - General 03/28/12 [address] [place], [place] [id number] documented as of this encounter
--- OUTSIDE RECORDS SUMMARY | 2022-02-13 20:50 | XMS_ITS | Encounter Summary ---
:1960 Author Organization [facility] Address [address] [place] [address] Care Team Providers Name Role Phone Renetta FlahertyP Primary Care Provider [phone] Encounter Details Date Type Department Care Team Description 12/31/2014 Historical Results [facility] - Tomasa Guerrero, TOWEL INSPECTOR Only [facility] [place] [address] [facility] [address] [place] [address] [place] [address] [phone] (Wo rk) Social History Tobacco Use Types Packs/Day Years Used Date Current Every Day Smoker 0.5 Sex Assigned at Date Recorded Not on file documented as of this encounter Plan of Treatment Not on filedocumented as of this encounter Visit Diagnoses Not on filedocumented in this encounter Care Teams Terra Cotta Roofer Relationship Specialty Start Date End Date Renetta Flaherty FNP PCP - General 03/28/[address] [place], [place] [address] documented as of this encounter
--- OUTSIDE RECORDS SUMMARY | 2022-02-13 20:50 | XMS_ITS | Encounter Summary ---
:1960 Author Organization [facility] Address [address] [place] [address] Care Team Providers Name Role Phone Renetta Flaherty Primary Care Provider [phone] Encounter Details Date Type Department Care Team Description 01/23/2014 Hospital Encounter [facility] [phone] [address] [facility] (Work) [place] [address] Social History Tobacco Use Types [...] Code Departure Means Destination Home or Self Skilled Nursing documented in this encounter Plan of Treatment Not on filedocumented as of this encounter Visit Diagnoses Not on filedocumented in this encounter Care Teams Senior Sales Compensation Analyst Relationship Specialty Start Date End Date Renetta Flaherty FNP PCP - General 03/28/12 [address] [place], [place] [id number] documented as of this encounter
--- OUTSIDE RECORDS SUMMARY | 2022-02-13 20:50 | XMS_ITS | Encounter Summary ---
:1960 Author Organization [facility] Address [address] [place] [address] Care Team Providers Name Role Phone Renetta Flaherty Primary Care Provider [phone] Encounter Details Date Type Department Care Team Description 12/10/[address] [facility] [phone] [address] [facility] (Work) [place] [address] Social History Tobacco Use Types [...] Code Departure Means Destination Home or Self [facility] documented in this encounter Plan of Treatment Not on filedocumented as of this encounter Visit Diagnoses Not on filedocumented in this encounter Care Teams Women'S Apparel Salesperson Relationship Specialty Start Date End Date Renetta Flaherty FNP PCP - General 03/28/12 [address] [place], [place] [id number] documented as of this encounter
--- OUTSIDE RECORDS SUMMARY | 2022-02-13 20:50 | XMS_ITS | Encounter Summary ---
:1960 Author Organization [facility] Address [address] [place] [address] Care Team Providers Name Role Phone Renetta FlahertyP Primary Care Provider [phone] Encounter Details Date Type Department Care Team Description 04/01/[address] [facility] Bhavesh Grayson, Spine Program - Bri quintanilla PA-C [address] [place], [place] [address] Social History Tobacco Use Types Packs/Day Years Used Date Current Every Day Smoker 0.5 Sex Assigned at Date Recorded Not on file documented as of this encounter Plan of Treatment Pending Results Name Type Priority Associated Diagnoses Date/Ti me OUTSIDE CD - MRI NEURO Imaging 04/01 16:40 EDT documented as of this encounter Visit Diagnoses Not on filedocumented in this encounter Care Teams Seam Sewer Relationship Specialty Start Date End Date Renetta Flaherty FNP PCP - General 03/28/12 [address] [place], [place] [address] documented as of this encounter
--- OUTSIDE RECORDS SUMMARY | 2022-02-13 20:50 | XMS_ITS | Encounter Summary ---
:1960 Author Organization [facility] Address [address] [place] [address] Care Team Providers Name Role Phone Renetta FlahertyP Primary Care Provider [phone] Reason for Visit Reason Comments Other Encounter Details Date Type Department Care Team Description 06/20/2013 Refill [facility] Care Thom Rojo [facility] MD Adria [address] [address] [place] [phone] (Wo rk) Social History Tobacco Use Types Packs/Day Years Used Date Current Every Day Smoker 0.5 Sex Assigned at Date Recorded Not on file documented as of this encounter Plan of Treatment Not on filedocumented as of this encounter Visit Diagnoses Not on filedocumented in this encounter Care Teams Computer Forwarding System Markup Clerk Relationship Specialty Start Date End Date Renetta Flaherty FNP PCP - General 03/28/12 [facility] [place], [place] [id number] documented as of this encounter
--- OUTSIDE RECORDS SUMMARY | 2022-02-13 20:50 | XMS_ITS | Encounter Summary ---
:1960 Author Organization [facility] Address [address] [place] [address] Care Team Providers Name Role Phone Renetta Flaherty WARPER FIXER Primary Care Provider [phone] Encounter Details Date Type Department Care Team Description 01/01/2015 Historical Results [facility] - Tomasa Guerrero, MOLDER SWEEP Only [facility] Radiology [address] [facility] [address] [facility] [address] [place] [address] [place] [address] [phone] (Wo rk) Social History Tobacco Use Types Packs/Day Years Used Date Current Every Day Smoker 0.5 Sex Assigned at Date Recorded Not on file documented as of this encounter Plan of Treatment Not on filedocumented as of this encounter Procedures Procedure Name Priority Date/Time Associated Diagnosis Comme nts MR LUMBAR SPINE WO 01/01/2015 10:53 Resul ts for this CONTRAST EDT procedure are i n the results section. documented in this encounter Results MR LUMBAR SPINE WO CONTRAST (01/01/2015 10:53 EDT) Specimen Narrative [facility] - 01/01/2015 10:59 EDT ? EXAM: MAGNETIC RESONANCE IMAGING/LUMBAR S EX. D/ (1631) ? CLINICAL INFORMATION: ? LOW BACK PAIN AND GLOBAL BILATERA L LOWER ? EXTREMITY PAIN AND WEAKNESS. R/O STENOSIS ? INDICATION: Back pain. Right radi culopathy. ? TECHNIQUE: ??Multiplanar multiseq uence MR imaging of the lumbar spine ? was obtained without contrast. ? COMPARISON: 08/11/2011. ? FINDINGS: There are congenitally short lumbar pedicles. The lumbar ? spine is well aligned. The lumbar vertebral bodies maintain normal ? height. The paraspinal soft tissu es are normal in appearance. The tip ? of the conus medullaris terminate s at the L1/L2 vertebral body level. ? At the L5/S1 level, there is dege nerative facet disease and mild ? spinal canal narrowing and mild b ilateral neural foraminal narrowing. ? At the L4/5 level, there is a dis c bulge and degenerative facet ? disease with moderate spinal dimas l narrowing and mild/moderate left ? and moderate right neural foramin al narrowing. ? At the L3/4 level, there is a min imal disc bulge and degenerative ? facet disease with moderate/sever e left and moderate right neural ? foraminal narrowing. There is mil d spinal canal narrowing. ? At the L2/3 level, there is a min imal disc bulge and early ? degenerative facet disease. There is mild spinal canal and mild ? bilateral neural foraminal narrow ing. ? At the L1/2 level, the spinal can al and neural foramen are patent. ? IMPRESSION: ? 1. Lower lumbar spine degenerativ e disc and facet disease ? 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 progressed from the prior study. Current findings include L4/L5 ? moderate spinal canal narrowing a nd L4/L5 and L3/L4 moderate right ? neural foraminal narrowing. ? Additional findings as discussed above. ? REPORT SIGNED IN OTHER VENDOR SYSTEM 01/01/2015 ?Reported B y: Cody Henderson MD ? CC: ? Transcribed Date/Time: 01/01/2015 (1059) ? Cash Teller: ? Printed Date/Time: 01/27/2019 (20 32) ? PAGE 1 ? Shonda d Report ? Procedure Note Cody Henderson MD - 06/24/2019 EXAM: MAGNETIC RESONANCE IMAGING/LUMBAR S EX. D/ (1631) CLINICAL INFORMATION: LOW BACK PAIN AND GLOBAL BILATERAL LOWE R EXTREMITY PAIN AND WEAKNESS. R/O STENOS IS INDICATION: Back pain. Right radiculopa thy. TECHNIQUE: Multiplanar multisequence MR imaging of the lumbar spine was obtained without contrast. COMPARISON: 08/11/2011. FINDINGS: There are congenitally short lumbar pedicles. The lumbar spine is well aligned. The lumbar verte bral bodies maintain normal height. The paraspinal soft tissues are normal in appearance. The tip of the conus medullaris terminates at t he L1/L2 vertebral body level. At the L5/S1 level, there is degenerati ve facet disease and mild spinal canal narrowing and mild bilater al neural foraminal narrowing. At the L4/5 level, there is a disc bulg e and degenerative facet disease with moderate spinal canal narr owing and mild/moderate left and moderate right neural foraminal chandler rowing. At the L3/4 level, there is a minimal d isc bulge and degenerative facet disease with moderate/severe left and moderate right neural foraminal narrowing. There is mild spin al canal narrowing. At the L2/3 level, there is a minimal d isc bulge and early degenerative facet disease. There is mi ld spinal canal and mild bilateral neural foraminal narrowing. At the L1/2 level, the spinal canal and neural foramen are patent. IMPRESSION: 1. 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 Curren t findings include L4/L5 moderate spinal canal narrowing and L4/ L5 and L3/L4 moderate right neural foraminal narrowing. Additional findings as discussed above. REPORT SIGNED IN OTHER VENDOR SYSTEM 01/01/2015 Reported By: Cody Henderson MD CC: Transcribed Date/Time: 01/01/2015 (1059 ) Cash Teller: Printed Date/Time: 01/27/2019 (0094) PAGE 1 Signed Report Performing Organization Address City/State/ZIP Code Phon e Number [facility] documented in this encounter Visit Diagnoses Not on filedocumented in this encounter Care Teams Business Objects Analyst Relationship Specialty Start Date End Date Renetta Flaherty, LUIS PCP - General 03/28/12 [address] [place] [address] documented as of this encounter
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
--- OUTSIDE RECORDS SUMMARY | 2022-02-13 20:50 | XMS_ITS | Encounter Summary ---
:1960 Author Organization [facility] Address [address] [place] [address] Care Team Providers Name Role Phone Renetta FlahertyP Primary Care Provider [phone] Encounter Details Date Type Department Care Team Description 04/04/2012 Abstract [facility] Spine Yamile Grayson PA-C Program - [place] [place], [place] [address] Social History Tobacco Use Types Packs/Day Years Used Date Current Every Day Smoker 0.5 Sex Assigned at Date Recorded Not on file documented as of this encounter Plan of Treatment Not on filedocumented as of this encounter Visit Diagnoses Not on filedocumented in this encounter Care Teams Scribing Machine Operator Relationship Specialty Start Date End Date Renetta Flaherty FNP PCP - General 03/28/[address] [facility] [place] [address] documented as of this encounter
--- OUTSIDE RECORDS SUMMARY | 2022-02-13 20:50 | XMS_ITS | Encounter Summary ---
:1960 Author Organization [facility] Address [address] [place] [address] Care Team Providers Name Role Phone Krystina Renetta Beth HAT FORMING MACHINE FEEDER Primary Care Provider [phone] Encounter Details Date Type Department Care Team Description 01/02/2017 Historical Results [facility] Flaherty geovani Only [facility] [place] C, HAT FORMING MACHINE FEEDER [address] [place] [address] [place] [address] [phone] Social History Tobacco Use Types Packs/Day Years Used Date Current Every Day Smoker 0.5 Sex Assigned at Date Recorded Not on file documented as of this encounter Plan of Treatment Not on filedocumented as of this encounter Procedures Procedure Name Priority Date/Time Associated Comments Diagnosis RHEUMATOID Routine 01/02/2017 12:35 Results for this SCREEN/TITRE EDT procedure are i n the results section. COMPLETE BLOOD COUNT Routine 01/02/2017 12:35 Res ults for this WITH DIFFERENTIAL EDT procedure are in (AUTO) the results section. LYME AB Routine 01/02/2017 12:35 Results for this EDT procedure are i n the results section. C REACTIVE PROTEIN Routine 01/02/2017 12:35 Resul ts for this EDT procedure are i n the results section. C REACTIVE PROTEIN Routine 01/02/2017 12:35 Resul ts for this EDT procedure are i n the results section. ANTI NUCLEAR AB (BUD), Routine 01/02/2017 12:35 R esults for this IFA EDT procedure are i n the results section. LIPID PROFILE Routine 01/02/2017 12:35 Results fo r this (INCLUDES CHOLESTEROL, EDT proce dure are in TRIGLYCERIDES, HDL, the resu lts LDL) section. COMPREHENSIVE Routine 01/02/2017 12:35 Results fo r this METABOLIC PANEL (CMP) EDT proced ure are in the results section. documented in this encounter Results (ABNORMAL) LIPID PROFILE (INCLUDES CHOLESTEROL, TRIGLYCERIDES, HDL, LDL) (01/02/2017 12:35 EDT) Pathologist [facility] Triglyceride 264 (H) 35 - 150 [facility] mg/dL [facility] Cholesterol 194 120 - 200 [facility] mg/dL [facility] Chol/HDL Ratio 4.4 0 - 4.5 [facility] Comment: [facility] DESIRABLE RATIO IS LESS THAN 4.1 PATIENTS ARE CONSIDERED AT RISK: WOMEN RATIO >5 MEN RATIO >6 FASTING? - [facility] No [facility] HDL 44 40 - 60 mg/dL [facility] LDL CHOLESTEROL - 97 60 - 100 [facility] mg/dL [facility] Non HDL Cholesterol 150 mg/dl [facility] Comment: [facility] Desirable: ?Less than 130 Borderline High: ??130-159 High: ? 160-189 Very High: ?Greater than or equal to 190 Specimen Narrative [facility] - 017 14:07 EDT Does PT Have a Latex Allergy? NO Performing Organization Address City/State/ZIP Code Phon e Number [facility] [address] LAB (ABNORMAL) C REACTIVE PROTEIN (01/02/2017 12:35 EDT) Pathologist Sig nature C-Reactive Protein 12.4 (H) 0.0 - 3.0 mg/L [facility] Specimen Narrative [facility] - 017 14:07 EDT Does PT Have a Latex Allergy? NO Performing Organization Address City/[facility]/ZIP Code Phon e Number [facility] [address] LAB (ABNORMAL) COMPREHENSIVE METABOLIC PANEL (CMP) (01/02/2017 12:35 EDT) Pathologist [facility] ALBUMIN [facility] 3.8 3.4 - 5.0 [facility] g/dL [facility] ALKALINE 108 41 - 126 U/L [facility] PHOSPHATASE - [facility] BILIRUBIN TOTAL 0.3 0.0 - 1.0 [facility] mg/dL [facility] BUN - [facility] 9 7 - 18 mg/dL [facility] CALCIUM - [facility] 8.8 8.5 - 10.1 [facility] mg/dL [facility] Chloride 105 98 - 107 [facility] mEq/L [facility] CO2 Total 27 21 - 32 mEq/L [facility] CREATININE 0.85 0.5 - 1.3 [facility] mg/dL [facility] eGFR >60 [facility] Comment: [facility] Chronic renal impairment is defined as GFR <60 Multiply result by 1.210 for patients . eGFR calculated using the IDMS-traceable MDRD Study Equation. ??(effective 06/22/2014) Anion Gap 8 5 - 15 [facility] GLUCOSE - [facility] 106 (H) 70 - 100 [facility] mg/dL [facility] Potassium 4.6 3.5 - 5.0 [facility] mEq/L [facility] Sodium 140 135 - 145 [facility] mEq/L [facility] TOTAL PROTEIN - 7.6 6.4 - 8.2 [facility] gm/dl [facility] SGOT/AST - [facility] <3 (L) 10 - 37 U/L [facility] SGPT/ALT - [facility] 17 12 - 78 U/L [facility] Specimen Narrative [facility] - 017 14:07 EDT Does PT Have a Latex Allergy? NO Performing Organization Address City/[facility]/ZIP Code Phon e Number [facility] [address] LAB LYME AB (01/02/2017 12:35 EDT) Pathologist Sig nature Lyme Ab IgG NEGATIVE [facility] AB Lyme Ab NEGATIVE [facility] AB Specimen Narrative [facility] - 017 10:57 EDT Does PT Have a Latex Allergy? NO Performing Organization Address City/[facility]/ZIP Code Phon e Number [facility] [address] LAB ANTI NUCLEAR ANTIBODY (01/02/2017 12:35 EDT) Pathologist Sig nature Antinuclear Ab, S <1:80 <1:80 [facility] LAB Specimen Narrative [facility] - 017 13:14 EDT Does PT Have a Latex Allergy? NO Performing Organization Address City/[facility]/ZIP Code Phon e Number [facility] [address] LAB (ABNORMAL) C REACTIVE PROTEIN (01/02/2017 12:35 EDT) Pathologist Sig nature SED RATE - CV 32 (H) 1 - 17 mm/hr [facility] LAB Specimen Narrative [facility] - 017 13:25 EDT Does PT Have a Latex Allergy? NO Performing Organization Address City/[facility]/ZIP Code Phon e Number [facility] [address] LAB (ABNORMAL) COMPLETE BLOOD COUNT WITH DIFFERENTIAL (AUTO) (01/02/2017 12:35 EDT) Pathologist Sig nature ABSOLUTE NEUTROPHIL 6.36 1.7 - 7.0 [facility] COUN - [facility] 10e3/ul CENTER LAB BASO # - [facility] 0.03 0.0 - 0.3 [facility] 10e3/uL [facility] BASO % - [facility] 0 0 - 2 % [facility] EOS # - [facility] 0.07 0.05 - 0.5 [facility] 10e3/uL [facility] EOS % - [facility] 1 0 - 5 % [facility] GRAN % - [facility] 72 40 - 80 % [facility] HEMATOCRIT - [facility] 51.7 (H) 34.0 - 47.0 % [facility] HEMOGLOBIN - [facility] 17.2 (H) 11.2 - 15.7 [facility] g/dl CENTER LAB IG# - [facility] 0.06 0 - 0.07 [facility] 10e3/uL [facility] IG% - [facility] 0.7 0 - 0.9 % [facility] LYMPH # - [facility] 2.01 0.9 - 2.9 [facility] 10e3/uL [facility] LYMPH% - [facility] 23 20 - 40 % [facility] MEAN CORPUSCULAR HGB 31.5 26 - 34 pg [facility] CV CENTER LAB MEAN CORPUSCULAR HGB 33.3 31 - 36 g/dL [facility] CONC [facility] LAB MEAN CELL VOLUME - 94.7 77 - [address] [facility] MONO # - [facility] 0.35 0.3 - 0.9 [facility] 10e3/uL CENTER LAB MONO% - [facility] 4 0 - 12 % [facility] PLATELET COUNT 229 150 - 400 [facility] 10e3/ul CENTER LAB RED BLOOD COUNT - 5.46 (H) 3.8 - 5.2 [facility] 10e6/ul [facility] RED CELL DISTRI WIDTH 14.4 11.8 - 15.6 % [facility] D [facility] LAB WHITE BLOOD COUNT - 8.9 3.5 - 10.5 [facility] 10e3/ul [facility] Specimen Narrative [facility] - 017 13:25 EDT Does PT Have a Latex Allergy? NO Performing Organization Address City/[facility]/ZIP Code Phon e Number [facility] [address] [place] [address] [facility] RHEUMATOID SCREEN/TITRE - [facility] (01/02/2017 12:35 EDT) Pathologist Sig nature RHEUMATOID FACTOR SCREEN NEG NEG [facility] Specimen Narrative [facility] - 017 13:32 EDT Does PT Have a Latex Allergy? NO Performing Organization Address [facility] Code Phon e Number [facility] [address] [place] [address] [facility] documented in this encounter Visit Diagnoses Not on filedocumented in this encounter Care Teams Scale Installer Relationship Specialty Start Date End Date Renetta Flaherty, HAT FORMING MACHINE FEEDER PCP - General 03/28/[address] [place], [place] [id number] documented as of this encounter
--- OUTSIDE RECORDS SUMMARY | 2022-02-13 20:50 | XMS_ITS | Encounter Summary ---
:1960 Author Organization [facility] Address [address] [place] [address] Care Team Providers Name Role Phone Renetta Flaherty MEAT CUTTER APPRENTICE Primary Care Provider [phone] Encounter Details Date Type Department Care Team Description 03/05/2017 Historical Results [facility] - Tomasa Guerrero, NURSING SERVICE DIRECTOR Only [facility] [place] [facility] [address] [facility] [address] [place] [address] [place] [address] [phone] (Wo rk) Social History Tobacco Use Types Packs/Day Years Used Date Current Every Day Smoker 0.5 Sex Assigned at Date Recorded Not on file documented as of this encounter Plan of Treatment Not on filedocumented as of this encounter Procedures Procedure Name Priority Date/Time Associated Diagnosis Comme nts MR LUMBAR SPINE WO 03/05/2017 16:07 Resul ts for this CONTRAST EDT procedure are i n the results section. NM BONE WHOLE BODY 03/05/2017 15:58 Resul ts for this SINGLE ZONE WITH EDT procedure a re in SPECT/CT the results section. XR LUMBAR SPINE 03/05/2017 11:20 Results for this COMPLETE WITH EDT procedure are in FLEX/EXT AND the results OBLIQUES MIN 6 section. VIEWS documented in this encounter Results MR LUMBAR SPINE WO CONTRAST (03/05/2017 16:07 EDT) Specimen Narrative [facility] - 03/05/2017 16:10 EDT ? EXAM: MAGNETIC RESONANCE IMAGING/LUMBAR S EX. D/ (1207) ? CLINICAL INFORMATION: ? M54.41, M54.42 LUMBAGO W/ BILATER AL SCIATICA ? LOW BACK PAIN AND R>L LEG PAIN ?R/O STENOSIS ? LUMBAR SPINE W/O CONTRAST ? Signs and Symptoms/Comments: ??M5 4.41, M54.42 LUMBAGO W/ BILATERAL ? SCIATICA: LOW BACK PAIN AND R>L L EG PAIN. R/O STENOSIS ? Comparisons: MR lumbar spine on , 08/11/2011. CT lumbar ? spine on 04/04/2011. Lumbar spine radiographs on 03/05/2017. ? Accompanying lumbar SPECT on 03/05. ? Technique: Noncontrast MR of the lumbar spine was performed with the ? following sequences: Sagittal T2, sagittal T1, sagittal STIR, axial ? T1, axial T2. ? FINDINGS: ? There are 5 lumbar type vertebral bodies. There is slight ? degenerative retrolisthesis of L2 on L3 and L3 on L4. A small ? circumscribed T2 and T1 hyperinte nse focus in the L2 vertebral body ? is likely a hemangioma. No signif icant bone marrow edema is present ? to suggest acute fracture. ? The conus terminates normally at the L1-L2 level. Mild-moderate ? multilevel degenerative disc dise ase and facet arthrosis are present. ? T12-L1: Unremarkable. ? L1-L2: Unremarkable. ? L2-L3: Mild global disc bulge is present without significant spinal ? stenosis. Disc bulge and facet ar throsis result in minimal bilateral ? neural foraminal narrowing, uncha nged from 2014. ? L3-L4: Mild global disc bulge is present with superimposed shallow ? bilateral neural foraminal disc p rotrusions. No significant spinal ? stenosis is present. Disc protrus ion and facet arthrosis result in ? mild bilateral neural foraminal n arrowing, unchanged from 2015. ? L4-L5: Mild global disc bulge and congenitally short pedicles result ? in moderate spinal stenosis with partial effacement of the thecal ? sac. Disc bulge and facet arthros is result in mild-moderate bilateral ? neural foraminal narrowing with m ild mass effect on the exiting L4 ? nerve roots. These findings are u nchanged from 2015. ? L5-S1: Minimal global disc bulge is present without significant ? spinal stenosis or neural foramin al narrowing. ? The paraspinal soft tissues are u nremarkable. ? IMPRESSION: ? PAGE 1 ? Shonda d Report ? (CONTINUED) ? 1. ??Mild-moderate multilevel lum bar degenerative disc disease and ? facet arthrosis. ? 2. ??Moderate L4-L5 spinal stenos is, similar to 2015. ? 3. ??Mild-moderate neuroforaminal narrowing at L3-L4 and L4-L5, also ? unchanged from 2015. ? 4. ??Additional findings detailed above. ? REPORT SIGNED IN OTHER VENDOR SYSTEM 03/05/2017 ?Reported B y: Christopher Leiva MD ? CC: ? Transcribed Date/Time: 03/05/2017 (1610) ? Nursing Service Director: HIS.POWSCR ? Printed Date/Time: 02/03/2019 (12 44) ? PAGE 2 ? Shonda d Report ? Procedure Note Christopher Leiva MD - 06/25/2019 EXAM: MAGNETIC RESONANCE IMAGING/LUMBAR S EX. D/ (1207) CLINICAL INFORMATION: M54.41, M54.42 LUMBAGO W/ BILATERAL SCI ATICA LOW BACK PAIN AND R>L LEG PAIN R/O STEN OSIS LUMBAR SPINE W/O CONTRAST Signs and Symptoms/Comments: M54.41, M5 4.42 LUMBAGO W/ BILATERAL SCIATICA: LOW BACK PAIN AND R>L LEG MELANI N. R/O STENOSIS Comparisons: MR lumbar spine on 01/01/20 15, 08/11/2011. CT lumbar spine on 04/04/2011. Lumbar spine radiog raphs on 03/05/2017. Accompanying lumbar SPECT on 03/05/2017. Technique: Noncontrast MR of the lumbar spine was performed with the following sequences: Sagittal T2, sagit jim T1, sagittal STIR, axial T1, axial T2. FINDINGS: There are 5 lumbar type vertebral julien s. There is slight degenerative retrolisthesis of L2 on L3 and L3 on L4. A small circumscribed T2 and T1 hyperintense fo cus in the L2 vertebral body is likely a hemangioma. No significant bone marrow edema is present to suggest acute fracture. The conus terminates normally at the L1 -L2 level. Mild-moderate multilevel degenerative disc disease an d facet arthrosis are present. T12-L1: Unremarkable. L1-L2: Unremarkable. L2-L3: Mild global disc bulge is presen t without significant spinal stenosis. Disc bulge and facet arthrosi s result in minimal bilateral neural foraminal narrowing, unchanged f rom 2014. L3-L4: Mild global disc bulge is presen t with superimposed shallow bilateral neural foraminal disc protrus ions. No significant spinal stenosis is present. Disc protrusion an d facet arthrosis result in mild bilateral neural foraminal narrowi ng, unchanged from 2015. L4-L5: Mild global disc bulge and conge nitally short pedicles result in moderate spinal stenosis with partia l effacement of the thecal sac. Disc bulge and facet arthrosis res ult in mild-moderate bilateral neural foraminal narrowing with mild ma ss effect on the exiting L4 nerve roots. These findings are unchang ed from 2014. L5-S1: Minimal global disc bulge is pre sent without significant spinal stenosis or neural foraminal chandler rowing. The paraspinal soft tissues are unremar kable. IMPRESSION: PAGE 1 Signed Report (CONTINUED) 1. Mild-moderate multilevel lumbar dege nerative disc disease and facet arthrosis. 2. Moderate L4-L5 spinal stenosis, toan lar to 2015. 3. Mild-moderate neuroforaminal narrowi ng at L3-L4 and L4-L5, also unchanged from 2015. 4. Additional findings detailed above. REPORT SIGNED IN OTHER VENDOR SYSTEM 03/05/2017 Reported By: Christopher Leiva MD CC: Transcribed Date/Time: 03/05/2017 (6054 ) Nursing Service Director: Printed Date/Time: 02/03/2019 (8881) PAGE 2 Signed Report Performing Organization Address City/State/ZIP Code Phon e Number [facility] NM BONE WHOLE BODY WITH SPECT (03/05/2017 15:58 EDT) Specimen Narrative [facility] - 03/05/2017 16:02 EDT ? EXAM: NUCLEAR MEDICINE/BONE SPECT WITH WH EX. D/ (1349) ? CLINICAL INFORMATION: ? M54.41, M54.42 LUMBAGO W/ BILATER AL SCIATICA ? LOW BACK PAIN AND R>L LEG PAIN ?R/O STENOSIS ? BONE SPECT WITH WHOLE BODY ? Signs and Symptoms/Comments: ??M 54.41, M 54.42 LUMBAGO WITH BILATERAL ? SCIATICA: 57-YEAR-OLD FEMALE WITH LOW BACK PAIN AND R> L LEG PAIN. ? RULE OUT STENOSIS. ? Comparison: MR lumbar spine on , 12/31/2014. Lumbar spine ? radiographs on 03/05/2017, 4/23/[address] cervical spine on 04/01/2011. ? Technique: After the intravenous administration of 22.0 mCi Tc-99m ? MDP, whole-body planar images wer e performed, followed by SPECT CT ? images of the lumbar spine. ? FINDINGS: ? Whole-body planar images: Mild pa ranasal and odontogenic uptake is ? likely inflammatory. Mild symmetr ic degenerative uptake is scattered ? throughout the appendicular skele ton. Degenerative uptake is present ? in the lower lumbar spine (detail ed below). There is no evidence of ? osseous metastatic disease. No ab normal soft tissue uptake is ? identified. ? SPECT CT images: ? There are 5 lumbar type vertebral bodies. Slight degenerative ? retrolisthesis of L2 on L3 is bet ter appreciated on the accompanying ? upright radiographs. Increased ra diotracer uptake associated with ? degenerative disease is present a s follows: ? Discogenic uptake: ? T12-L1: Normal. ? L1-L2: Normal. ? L2-L3: Normal. ? L3-L4: Normal. ? L4-L5: Normal. ? L5-S1: Normal. ? Facet uptake: ? T12-L1: Normal. ? L1-L2: Normal. ? L2-L3: Normal. ? L3-L4: Minimal left. ? L4-L5: Mild left. ? L5-S1: Severe left, moderate righ t. ? Sacroiliac joint uptake: Normal. ? Low dose attenuation correction C T: Tiny punctate splenic ? calcification, likely old granulo matous disease. Scattered peripheral ? atherosclerotic disease. ? PAGE 1 ? Shonda d Report ? (CONTINUED) ? IMPRESSION: ? 1. ??Multilevel facet uptake, mod erate-severe at L5-S1. ? 2. ??No significant lumbar discog enic uptake. ? REPORT SIGNED IN OTHER VENDOR SYSTEM 03/05/2017 ?Reported B y: Christopher Leiva MD ? CC: ? Transcribed Date/Time: 03/05/2017 (1602) ? Nursing Service Director: ? Printed Date/Time: 02/03/2019 (12 44) ? PAGE 2 ? Shonda d Report ? Procedure Note Christopher Leiva MD - 06/25/2019 EXAM: NUCLEAR MEDICINE/BONE SPECT WITH WH EX. D/ (1349) CLINICAL INFORMATION: M54.41, M54.42 LUMBAGO W/ BILATERAL SCI ATICA LOW BACK PAIN AND R>L LEG PAIN R/O STEN OSIS BONE SPECT WITH WHOLE BODY Signs and Symptoms/Comments: M 54.41, M 54.42 LUMBAGO WITH BILATERAL SCIATICA: 57-YEAR-OLD FEMALE WITH LOW B ACK PAIN AND R> L LEG PAIN. RULE OUT STENOSIS. Comparison: MR lumbar spine on , 12/31/2014. Lumbar spine radiographs on 03/05/2017, 12/10/2014. CT cervical spine on 04/01/2011. Technique: After the intravenous admini stration of 22.0 mCi Tc-99m MDP, whole-body planar images were perf ormed, followed by SPECT CT images of the lumbar spine. FINDINGS: Whole-body planar images: Mild paranasa l and odontogenic uptake is likely inflammatory. Mild symmetric deg enerative uptake is scattered throughout the appendicular skeleton. D egenerative uptake is present in the lower lumbar spine (detailed bel ow). There is no evidence of osseous metastatic disease. No abnormal soft tissue uptake is identified. SPECT CT images: There are 5 lumbar type vertebral julien s. Slight degenerative retrolisthesis of L2 on L3 is better ap preciated on the accompanying upright radiographs. Increased radiotra cer uptake associated with degenerative disease is present as foll ows: Discogenic uptake: T12-L1: Normal. L1-L2: Normal. L2-L3: Normal. L3-L4: Normal. L4-L5: Normal. L5-S1: Normal. Facet uptake: T12-L1: Normal. L1-L2: Normal. L2-L3: Normal. L3-L4: Minimal left. L4-L5: Mild left. L5-S1: Severe left, moderate right. Sacroiliac joint uptake: Normal. Low dose attenuation correction CT: Tin y punctate splenic calcification, likely old granulomatous disease. Scattered peripheral atherosclerotic disease. PAGE 1 Signed Report (CONTINUED) IMPRESSION: 1. Multilevel facet uptake, moderate-se jarrett at L5-S1. 2. No significant lumbar discogenic upt soni. REPORT SIGNED IN OTHER VENDOR SYSTEM 03/05/2017 Reported By: Christopher Leiva MD CC: Transcribed Date/Time: 03/05/2017 (6284 ) Nursing Service Director: Printed Date/Time: 02/03/2019 (1536) PAGE 2 Signed Report Performing Organization Address City/State/ZIP Code Phon e Number [facility] XR LUMBAR SPINE COMPLETE WITH FLEX/EXT AND OBLIQUES MIN 6 VIEWS (03/05/2017 11:20 EDT) Specimen Narrative [facility] - 03/05/2017 11:23 EDT ? EXAM: RADIOLOGY/LUMBAR SPINE WITH FLEX/EX EX. D/ (1030) ? CLINICAL INFORMATION: ? M54.41, M54.42 LUMBAGO W/ BILATER AL SCIATICA ? LOW BACK PAIN AND R>L LEG PAIN ?R/O STENOSIS ? LUMBAR SPINE WITH FLEX/EXT ? Signs and Symptoms/Comments: M54. 41, M54.42 LUMBAGO W/ BILATERAL ? SCIATICA: LOW BACK PAIN AND R>L L EG PAIN ?R/O STENOSIS ? Comparison: 12/10/2014. MR lumbar spine on 12/31/2014. ? FINDINGS: ? Lumbar Spine: Upright AP, lateral , flexion and extension views were ? performed. There are 5 lumbar typ e vertebral bodies. There is slight ? degenerative retrolisthesis of L2 on L3 without evidence of dynamic ? instability on flexion or extensi on. No acute fracture is identified. ? Mild multilevel degenerative disc disease and lower lumbar facet ? arthrosis are present. The sacroi liac joints are congruent. The ? visible soft tissues are unremark able. ? IMPRESSION: ? 1. ??Mild lower lumbar degenerati ve disc disease and facet arthrosis. ? 2. ??Slight degenerative retrolis thesis of L2 on L3 without evidence ? of significant dynamic instabilit y on flexion or extension. ? REPORT SIGNED IN OTHER VENDOR SYSTEM 03/05/2017 ?Reported B y: Christopher Leiva MD ? CC: ? Transcribed Date/Time: 03/05/2017 (1123) ? Nursing Service Director: ? Printed Date/Time: 02/03/2019 (12 44) ? PAGE 1 ? Shonda d Report ? Procedure Note Christopher Leiva MD - 06/25/2019 EXAM: RADIOLOGY/LUMBAR SPINE WITH FLEX/ EX EX. D/ (1030) CLINICAL INFORMATION: M54.41, M54.42 LUMBAGO W/ BILATERAL SCI ATICA LOW BACK PAIN AND R>L LEG PAIN R/O STEN OSIS LUMBAR SPINE WITH FLEX/EXT Signs and Symptoms/Comments: M54.41, M5 4.42 LUMBAGO W/ BILATERAL SCIATICA: LOW BACK PAIN AND R>L LEG MELANI N R/O STENOSIS Comparison: 12/10/2014. MR lumbar spine on 12/31/2014. FINDINGS: Lumbar Spine: Upright AP, lateral, flex ion and extension views were performed. There are 5 lumbar type vert ebral bodies. There is slight degenerative retrolisthesis of L2 on L3 without evidence of dynamic instability on flexion or extension. No acute fracture is identified. Mild multilevel degenerative disc disea se and lower lumbar facet arthrosis are present. The sacroiliac j oints are congruent. The visible soft tissues are unremarkable. IMPRESSION: 1. Mild lower lumbar degenerative disc disease and facet arthrosis. 2. Slight degenerative retrolisthesis o f L2 on L3 without evidence of significant dynamic instability on f lexion or extension. REPORT SIGNED IN OTHER VENDOR SYSTEM 03/05/2017 Reported By: Christopher Leiva MD CC: Transcribed Date/Time: 03/05/2017 (1123 ) Nursing Service Director: Printed Date/Time: 02/03/2019 (7079) PAGE 1 Signed Report Performing Organization Address City/State/ZIP Code Phon e Number [facility] documented in this encounter Visit Diagnoses Not on filedocumented in this encounter Care Teams Wide Area Network Engineer Relationship Specialty Start Date End Date Renetta Flaherty FNP PCP - General 03/28/[address] [place] [address] documented as of this encounter
--- OUTSIDE RECORDS SUMMARY | 2022-02-13 20:50 | XMS_ITS | Clinical Summary ---
:1960 Author Organization [facility] Address [address] [place] [address] Care Team Providers Name Role Phone Renetta Flaherty LOAN SUPERVISOR Primary Care Provider [phone] Allergies Active Allergy Reactions Severity Noted Date Comments Penicillins Nausea And Vomiting 04/01/2012 Medications Medication Sig Dispensed Refills Start Date End Date Status OMEPRAZOLE ORAL Take 1 Cap by mouth 0 Active daily. ASPIRIN/ACETAMINOPHEN Take 2 Caps by 0 Active /CAFFEINE (EXCEDRIN mouth 4 times MIGRAINE ORAL) daily. gabapentin 1 pill at bedtime for 3 days , then increase to 1 pill twice daily for 3 days, then 1 pill three times daily. You may increase by 1 pill every 2-3 days as needed. Max 900 mg three times daily. 90 Cap 2 04/01/2012 Active (NEURONTIN) 300 mg capsule Active Problems No known active problems Surgical History Surgery Date Site/Laterality Comments CARPAL TUNNEL RELEASE b/l Medical History Medical History Date Comments Asthma Anxiety Depression Headaches, cluster GERD (gastroesophageal reflux disease) Social History Tobacco Use Types Packs/Day Years [...] Body Mass Index 34.95 04/01/2012 1412 EDT Plan of Treatment Health Maintenance Due Date Last Done Comments COVID-19 Vaccine (#1) 01/23/1965 Hepatitis C Screen Completed 05/21/2017 Insurance Payer Benefit Plan Subscriber ID Effective Phone Address Typ e / Group Dates MEDICAID ACO MEDICAID ACO [id number] 2019-Pre [phone] [address] Medicaid [place] [address], [place] [address] MEDICAID ACO MEDICAID ACO [id number] 2019-Pres [phone] [address] Medicaid [place] [address], [place] [id number] Mere,Evaline A Personal/Family Self 1960 [address] (Home) [place] [address] Manvel,Evaline A Personal/Family Self 1960 [address] (Home) [place] [address] Advance Directives For more information, please contact: [phone] Documents on File Type Date Recorded Patient Sports Journalist Explanati on Advance Directives and Living Will Power of Appliance Parts Counter Clerk Care Teams Health Type Technician Relationship Specialty Start Date End Date Renetta Flaherty, LUIS PCP - General 03/28/12 [address] [place] [address] (work)
[2022-02-13] MEDS: Albuterol/Ipratropium 3 ML UPD VIAL (20:57)
--- NOTE | 2022-02-13 21:03 | ED.GENADUL_ITS ---
Discharge Plan Disposition Patient Disposition: STILL A PATIENT Condition: Fair Discharge Details Chief Complaint: RespSymp Primary Care Provider: Renetta Flaherty ED Provider: Stevo Gannon Home Meds and New Rx's Prescriptions: No Action cetirizine 10 MG tablet 10 mg PO DAILY meloxicam 7.5 MG tablet 7.5 mg PO DAILY gabapentin 300 MG capsule 300 mg PO TID Label Comments: hasnt taken it for awhle omeprazole 20 MG capsule,delayed release(DR/EC) 20 mg PO DAILY hydrocodone-acetaminophen 1 EACH tablet 1 ea PO Q6H PRN Label Comments: has not taken for awhile albuterol sulfate [Proventil HFA] 6.7 GM HFA aerosol inhaler 2 puff IN PRN PRN clindamycin HCl 150 MG capsule 450 mg PO TID 7 Days 0RF fluoxetine 40 MG capsule 40 mg PO DAILY trazodone 50 MG tablet 50 mg PO PRN PRN lorazepam 0.5 MG tablet 0.5 mg PO PRN PRN cholecalciferol (vitamin D3) 50,000 UNIT capsule 50,000 units PO DIRECTED Medical Decision Making 62-year-old female history of COPD, asthma presents with shortness of breath tachycardia tachypnea hypoxia to the 70s, mottled extremities, speaking in short sentences, quiet lungs bilaterally, placed on nonrebreather and started on duo nebs, steroids, improvement of O2 to 96%, much more comfortable with nebs and nonrebreather, high clinical suspicion for viral versus bacterial pneumonia v ersus less likely pneumothorax or PE versus less likely ACS. Screening labs imaging reassessment after steroids and nebs disposition pending reassessment. 21: 49 patient improving after nebs and steroids, will add levalbuterol treatments, will add azithromycin as this is likely component of COPD exacerbation. Close reassessment of respiratory symptoms and heart rate after further treatment. Consider admission for monitoring of respiratory status given initial presentation with hypoxia tachypnea 23: 16 persistent hypoxia on room air to as low as mid 80s, color and work of breathing much better, patient does not want stay in the hospital I informed her of my worry that she would deteriorate if discharged, patient opened up that the reason she does not want to go as she has an adult son with autism but she does not want to leave alone at home he is currently here with her, we asked if patient could be admitted upstairs with her son her dependent with her and we were informed that this is not possible. For this reason we will observe patient in the emergency department and provide further medication as needed this evening/motorcycle maker. Will be considered for discharge if greatly improving otherwise will attempt to readmit in the morning when care management team is in house. HPI General Date/Time Provider Initiated Documentation: 02/13/22 20:44 . HPI Narrative: 62-year-old female history of COPD, asthma, presents with 3 days of shortness of breath dry cough, worsening tachypnea this evening, denies history of cardiac disease or PE. Recent sick contact at home. Related Data Home Medications Medication Instructions Recorded Confirmed cetirizine 10 mg tablet 10 mg PO DAILY 11/08/12 02/13/22 gabapentin 300 mg capsule 300 mg PO TID 11/08/12 02/13/22 hydrocodone 10 mg-acetaminophen 1 ea PO Q6H PRN 11/08/12 04/19/18 650 mg tablet meloxicam 7.5 mg tablet 7.5 mg PO DAILY 11/08/12 02/13/22 omeprazole 20 mg capsule,delayed 20 mg PO DAILY 11/08/12 02/13/22 release albuterol sulfate 90 mcg/actuation 2 puff IN PRN PRN 11/07/16 02/13/22 aerosol inhaler (Proventil HFA) cholecalciferol (vitamin D3) 1,250 50,000 units PO DIRECTED 04/19/18 02/13/22 mcg (50,000 unit) capsule clindamycin HCl 150 mg capsule 450 mg PO TID 7 days 04/19/18 fluoxetine 40 mg capsule 40 mg PO DAILY 04/19/18 02/13/22 lorazepam 0.5 mg tablet 0.5 mg PO PRN PRN 04/19/18 02/13/22 trazodone 50 mg tablet 50 mg PO PRN PRN 04/19/18 02/13/22 Previous Rx's Medication Instructions Recorded clindamycin HCl 150 mg capsule 450 mg PO TID 7 days 04/19/18 Allergies Allergy/AdvReac Type Severity Reaction Status Date / Time aspartame AdvReac Intermediate Other (See Unverified 04/19/18 14:18 Comment) codeine [Codeine] AdvReac Intermediate Headache Unverified 03/21/17 13:19 and vomiting Penicillins AdvReac Intermediate vomiting Unverified 11/07/16 13:19 General Stated Complaint: RespSymp ALEXA: 2 Review of Systems Narrative: Review of Systems Constitutional: negative Eyes: negative ENT: negative Cardiovascular: negative Respiratory: Shortness of breath, cough Gastrointestinal: negative : negative Musculoskeletal: negative Skin: negative Neurologic: negative Psych: negative [facility] Medical History (Updated 02/13/22 @ 21:02 by Muriel Vallejo RN) COPD (chronic obstructive pulmonary disease) Social History Smoking/Tobacco Use Status: Current-Occasional Smoking risk assessment performed?: Yes Alcohol Intake: never Drug use: Never Substance use type: does not use Do you feel safe at home: Yes Do you feel safe in your relationship?: Yes Exam Narrative Exam Narrative: Physical Examination General: alert, awake, cooperative, respiratory distress HEENT: normocephalic, atraumatic; PERRL, EOM intact, conjunctiva normal; no nasal discharge; moist mucous membranes, oral and pharyngeal mucosa normal, tolerating secretions Neck: supple, trachea midline; full ROM Chest: normal to inspection Respiratory: Tachypnea, speaking in short sentences, quiet lung carranza bilaterally Cardiac: Tachycardia, regular rhythm, S1S2 intact, no murmurs rubs or gallops GI: abdomen soft, non-tender, non-distended; no palpable mass or hepatosplenomegaly Skin: no lesions, rashes or trauma appreciated Neuro: AAOx3, normal speech, moving all extremities Extremities: Mottled purple pale extremities Psych: Appropriate mood and affect Course Vital Signs Vital signs: Vital Signs Pulse 137 H 02/13/22 20:53 Respiratory Rate 18 02/13/22 20:53 Blood Pressure 147/101 H 02/13/22 20:53 Pulse Oximetry 78 L 02/13/22 20:53 Temperature Source Tympanic 02/13/22 20:53 Pulse 135 H 02/13/22 20:57 Pulse 131 H 02/13/22 20:58 Respiratory Rate 30 H 02/13/22 20:58 Respiratory Effort Non-Labored 02/13/22 20:59 Respiratory Depth Shallow 02/13/22 20:59 Blood Pressure 147/101 H 02/13/22 20:57 Blood Pressure Mean 108 02/13/22 20:57 Blood Pressure Position Supine 02/13/22 20:53 Pulse Oximetry 96 02/13/22 20:58 Oxygen Delivery Method Room Air 02/13/22 20:53 Oxygen Flow Rate 0 02/13/22 20:53 Lab/Test Results Lab/Test Results: Laboratory Tests Range/Units 02/13/22 20:50 D-Dimer Cancelled
[2022-02-13 21:08] LABS: BE (Venous) 2 mmol/L (-2-3); HCO3 (Venous) 27 mmol/L (23-28); O2 Sat (Venous) 62 %; TCO2 (Venous) 23 mmol/L (24-29); pCO2 (Venous) 46 mmHg (41-51); pH (Venous) 7.38 (7.31-7.41); pO2 (Venous) 32 mmHg
[2022-02-13 21:09] LABS: Abs Immature Grans 0.15 10^3/uL (0.0-0.06); Absolute Basophil Count 0.11 10^3/uL (0.0-0.2); Basophils % 0.7; HCT 53.4 % (36.0-46.0); HGB 17.6 g/dL (11.2-15.7); Lymphocytes % 9.1; MCV 91 fL (80-95); MPV 9.9 fL (8.0-11.0); Monocytes % 7.1; Neutrophils % 82.1; Platelet Count 246 10^3/uL (130-400); RBC 5.87 10^6/uL (3.93-5.22); RDW 13.7 % (11.7-14.6); RDW-SD 46.3 fL; WBC 15.46 10^3/uL (4.4-10.8)
[2022-02-13 21:10] LABS: Absolute Lymphocyte Count 1.41 10^3/uL (1.2-3.4); Absolute Neutrophil Count 12.69 10^3/uL (1.2-6.7)
[2022-02-13] MEDS: methylPREDNISolone SUCC 125 MG VIAL IVP (21:22)
[2022-02-13 21:31] LABS: ALT 19 U/L (14-59); AST 25 U/L (15-37); Albumin 3.2 g/dL (3.4-5.0); Alkaline Phosphatase 127 U/L (46-116); Anion Gap 13.5 mmol/L (3-11); BUN 15 mg/dL (7-18); Bilirubin, Total 0.9 mg/dL (0.2-1.0); CO2 25.5 mmol/L (21.0-32.0); CREATININE 1.3 mg/dL (0.55-1.02); Calcium 9.6 mg/dL (8.5-10.1); Chloride 96 mmol/L (98-107); Glucose 149 mg/dL (74-106); Sodium 135 mmol/L (136-145); Total Protein 9.3 g/dL (6.4-8.2); Troponin I < 50 ng/L (<or=60)
[2022-02-13 21:34] LABS: NT-proBNP 290 pg/mL (<300)
[2022-02-13] MEDS: AZITHROMYCIN 500 MG in Normal Saline 250 ML 250 MG IVPB (22:00)
--- NOTE | 2022-02-13 22:00 | DI.VRAD_ITS ---
PROCEDURE INFORMATION: Exam: XR Chest Exam date and time: 02/13/2022 8:54 PM Age: 62 years old Clinical indication: Shortness of breath; Patient HX: SOB TECHNIQUE: Imaging protocol: Radiologic exam of the chest. Views: 1 view. COMPARISON: No relevant prior studies available. FINDINGS: Lungs: Mild opacities in the bases may represent minimal atelectasis or pneumonia.. Pleural spaces: Unremarkable. No pleural effusion. No pneumothorax. Heart/Mediastinum: Unremarkable. No cardiomegaly. Bones/joints: Unremarkable. IMPRESSION: Mild opacities in the bases may represent minimal atelectasis or pneumonia.. Dictated and Authenticated by: Aaron Nguyen MD. Ordering:OLEG Reyes MD
[2022-02-13] MEDS: Levalbuterol 1.25 MG/3 ML UPD VIAL UPD (22:03)
[2022-02-13 22:09] LABS: COVID-19 PCR Negative (Negative); Influenza A PCR Negative (Negative); Influenza B PCR Negative (Negative); RSV PCR Negative (Negative)
[2022-02-13] MEDS: Normal Saline 1,000 ML 1000 ML IV (22:30)
[2022-02-13] MEDS: MAGNESIUM SULFATE 2 GM/50 ML BAG IVPB (23:42)
[2022-02-14] VITALS (19 sets, daily range): BP systolic 117–144; BP diastolic 79–93; PULSE 68–118; RESP 1–28; TEMP 35.8–37.1; O2SAT 89–97
--- NOTE | 2022-02-14 00:05 | W.PM.HP.N ---
Date of service: 02/14/22 Time of Service: 00:05 Assessment and Plan Assessment and plan (1) COPD exacerbation: Status: Acute Assessment and plan: COPD exacerbation, by history and evaluation probably viral precipitant though will continue to cover for atypicals. Will continue steroids, updrafts and Zithromax. Will also offer prn nictotine patch. Usual meds as is otherwise. Reviewed ADs, requests DNR. History of Present Illness History of Present Illness Chief Complaint: SOB Narrative: 62 female with COPD, continues to smoke. Reports one week of dry cough and progressive SOB. No CP, fever or chills. In ER in obvious distress, with sats to 70s on RA. Initial w/u of note for white count 15 and (to my read) negative CXR, although official read questions basilar opacities vs atelectasis. Given steroids, updrafts, Magnesium and Zithromax with substantial improvement though still with oxygen requirement with sats to 90s. I was asked to evaluate for admission. States she feels much better though not to baseline. Notes that both her son and a close friend have had similar illness. COVID is negative. Review of Systems Narrative: per HPI PFSH All Active Problems COPD exacerbation (Acute) Asthma (Chronic) Hypoxia (Acute) Medical History COPD (chronic obstructive pulmonary disease) Social History Smoking/Tobacco Use Status: Current-Occasional Smoking risk assessment performed?: Yes Alcohol Intake: never Drug use: Never Substance use type: does not use Do you feel safe at home: Yes Do you feel safe in your relationship?: Yes Meds Allergies and Home Medications Allergies Allergy/AdvReac Type Severity Reaction Status Date / Time aspartame AdvReac Intermediate Other (See Unverified 04/19/18 14:18 Comment) codeine [Codeine] AdvReac Intermediate Headache Unverified 11/07/16 13:19 and vomiting Penicillins AdvReac Intermediate vomiting Unverified 11/07/16 13:19 Home Medications Medication Instructions Recorded Confirmed Type cetirizine 10 mg tablet 10 mg PO DAILY 11/08/12 02/13/22 History gabapentin 300 mg capsule 300 mg PO TID 11/08/12 02/13/22 History hydrocodone 10 mg-acetaminophen 1 ea PO Q6H PRN 11/08/12 04/19/18 History 650 mg tablet meloxicam 7.5 mg tablet 7.5 mg PO DAILY 11/08/12 02/13/22 History omeprazole 20 mg capsule,delayed 20 mg PO DAILY 11/08/12 02/13/22 History release albuterol sulfate 90 mcg/actuation 2 puff IN PRN PRN 11/07/16 02/13/22 History aerosol inhaler (Proventil HFA) cholecalciferol (vitamin D3) 1,250 50,000 units PO DIRECTED 04/19/18 02/13/22 History mcg (50,000 unit) capsule clindamycin HCl 150 mg capsule 450 mg PO TID 7 days 04/19/18 Rx fluoxetine 40 mg capsule 40 mg PO DAILY 04/19/18 02/13/22 History lorazepam 0.5 mg tablet 0.5 mg PO PRN PRN 04/19/18 02/13/22 History trazodone 50 mg tablet 50 mg PO PRN PRN 04/19/18 02/13/22 History Exam Narrative Exam Narrative: 134/80, 113, 36.7, 28, 93%. HEENT atraumaticv; neck supple; lungs greatly diminished with faint end expiratory wheezeing, heart distant/tachycardic and regular' abdomen soft and NT; extremities w/o edema; neuro Ox3, lucid, moves all 4s Results Labs Result diagrams: 02/13/22 20:58 02/13/22 20:58 Labs: Laboratory Results - last 24 hr 02/13/22 02/13/22 02/13/22 20:50 20:58 20:58 WBC 15.46 H RBC 5.87 H Hgb 17.6 H Hct 53.4 H MCV 91 MCH 30.0 MCHC 33.0 RDW 13.7 Plt Count 246 MPV 9.9 Immature Gran % 1.0 Neutrophils % 82.1 Lymphocytes % 9.1 Monocytes % 7.1 Eosinophils % 0.0 Basophils % 0.7 Nucleated RBC % 0.0 Absolute Neutrophils 12.69 H Absolute Lymphocytes 1.41 Absolute Monocytes 1.10 H Absolute Eosinophils 0.00 Absolute Basophils 0.11 D-Dimer Cancelled VBG pH VBG pCO2 VBG pO2 VBG HCO3 VBG Total CO2 VBG O2 Saturation VBG Base Excess Sodium 135 L Potassium 4.0 Chloride 96 L Carbon Dioxide 25.5 Anion Gap 13.5 H BUN 15 Creatinine 1.3 H Estimated GFR/1.73 m2 41.50 Glucose 149 H Calcium 9.6 Magnesium 2.0 Total Bilirubin 0.9 AST 25 ALT 19 Alkaline Phosphatase 127 H Troponin I < 50 NT-Pro-B Natriuret Pep Total Protein 9.3 H Albumin 3.2 L COVID-19 Source SARS-CoV-2 (PCR) Influenza Type A (PCR) Influenza Type B (PCR) RSV (PCR) 02/13/22 02/13/22 02/13/22 20:58 20:58 21:19 WBC RBC Hgb Hct MCV MCH MCHC RDW Plt Count MPV Immature Gran % Neutrophils % Lymphocytes % Monocytes % Eosinophils % Basophils % Nucleated RBC % Absolute Neutrophils Absolute Lymphocytes Absolute Monocytes Absolute Eosinophils Absolute Basophils D-Dimer VBG pH 7.38 VBG pCO2 46 VBG pO2 32 VBG HCO3 27 VBG Total CO2 23 L VBG O2 Saturation 62 VBG Base Excess 2 Sodium Potassium Chloride Carbon Dioxide Anion Gap BUN Creatinine Estimated GFR/1.73 m2 Glucose Calcium Magnesium Total Bilirubin AST ALT Alkaline Phosphatase Troponin I NT-Pro-B Natriuret Pep 290 Total Protein Albumin COVID-19 Source Not Applicable SARS-CoV-2 (PCR) Negative Influenza Type A (PCR) Negative Influenza Type B (PCR) Negative RSV (PCR) Negative Last Vital Signs Pulse 122 H 02/13/22 23:00 Resp 22 02/13/22 23:03 BP 122/68 02/13/22 23:00 Pulse Ox 92 02/13/22 23:04
[2022-02-14] MEDS: Albuterol/Ipratropium 3 ML UPD VIAL UPD ×4 (02:00→19:46)
[2022-02-14] MEDS: methylPREDNISolone SUCC 40 MG VIAL IVP ×3 (05:56→22:55)
[2022-02-14] MEDS: Normal Saline Flush 10 ML SYR IVP ×4 (05:57→22:55)
[2022-02-14] MEDS: FLUoxetine 20 MG CAP 40 MG PO (07:45)
[2022-02-14] MEDS: Omeprazole 20 MG CAPCR PO (07:45)
[2022-02-14] MEDS: Cetirizine 10 MG TAB PO (07:45)
[2022-02-14] MEDS: Azithromycin 250 MG TAB PO (07:45)
[2022-02-14] MEDS: Meloxicam 15 MG TAB 7.5 MG PO (09:16)
[2022-02-14] MEDS: Pregabalin 50 MG CAP 150 MG PO (11:55)
--- NOTE | 2022-02-14 12:47 | INITIAL_ITS ---
- If Service Date Differs Date of service: 02/14/22 Time of Service: 12:47 Care Management Initial Assess REASON FOR HOSPITALIZATION:: COPD PAST MEDICAL HISTORY/PAST SURGICAL HISTORY:: All Active Problems. COPD exacerbation (Acute). Asthma (Chronic). Hypoxia (Acute). Medical History. COPD (chronic obstructive pulmonary disease) PREVIOUS FUNCTIONAL STATUS/SOCIAL/FAMILY SUPPORTS:: Jamir lives in [facility] with her son, Al. 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 She is retired from working for the [employer], and she is currently disabled. She is independent at baseline. CURRENT FUNCTIONAL STATUS:: Jamir was sitting up in bed when CM met with her. She stated that she is 'bored', but feeling much better. She is currently on 4L O2 NC, and she reports that she is not on O2 at baseline. She reported that per RN, she will likely wean off O2 prior to returning home. She stated that her son can drive her home when she is ready. She stated that she expects to remain overnight, as she does not feel ready for discharge. CM will continue to follow. ADVANCE DIRECTIVES:: Not on file. Has patient been provided with info about the portal/API?: Yes Did the patient sign up for the portal?: No CODE STATUS:: DNR/DNI INSURANCE COVERAGE / FINANCIAL ISSUES:: [employer] CURRENT HOME/COMMUNITY SERVICES/EQUIPMENT:: No current services. She uses a crutch to ambulate. PRIMARY CARE PHYSICIAN:: Renetta Whitlock NP POTENTIAL DISCHARGE NEEDS:: Evaluations for further needs, follow up appointments. PATIENT/FAMILY EDUCATION NEEDS:: Review discharge instructions and limitations, discussion of self care needs including ask me three. ANTICIPATED BARRIERS TO DISCHARGE:: None identified. TRANSPORTATION:: Via private vehicle by family. PLAN:: Anticipate Jamir will return home when medically cleared. She will likely be driven home via private vehicle by family vs RCT. She will follow up with her PCP and discharge plan of care. CM will continue to follow.
--- NOTE | 2022-02-14 15:44 | CHAPLAIN ---
Jamir was sitting up in bed when I visited. She told me she was recently received an on-line ordination. She is not connected to a [facility] community, but said she's interested in starting her own [employer]. 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 Her son has been in to visit, but Jamir said he is nervous about her not leaving he hospital. She asked for some knitting needles, so I will try to bring some in tomorrow. I will continue to visit.
[2022-02-14] MEDS: HYDROcodone 5/Acetaminophen 325 TAB PO (19:51)
[2022-02-14] MEDS: Atorvastatin 20 MG TAB PO (19:52)
--- NOTE | 2022-02-14 23:15 | W.PM.PROGNOT ---
Date of Service Date of service: 02/14/22 Time of Service: 15:00 Assessment and Plan Assessment and plan (1) COPD exacerbation: Status: Acute Assessment and plan: COPD exacerbation viral precipitant Azithromycin to cover for atypicals, steroids, updrafts (2) Asthma: Status: Chronic Assessment and plan: As above (3) Hypoxia: Status: Acute Assessment and plan: As above Exercise SPO2 (4) Nicotine dependence: Status: Acute Assessment and plan: Nicotine patch (5) DVT prophylaxis: Status: Acute Assessment and plan: Enoxiparin (6) Discharge planning issues: Status: Acute Assessment and plan: Smoking cessation Subjective Subjective Patient reports: no new complaints and feels better; denies shortness of breath or fever Interval history since last seen: improving Exam Narrative Exam Narrative: Physical Examination General: alert, awake, cooperative, increased work of breathing HEENT: normocephalic, atraumatic; PERRL, EOM intact, conjunctiva normal; no nasal discharge; moist mucous membranes, oral and pharyngeal mucosa normal, tolerating secretions Neck: supple, trachea midline; full ROM Chest: normal to inspection Respiratory: Diminished breath sounds through out; speaking in full sentences Cardiac: Normal rate, regular rhythm, S1S2 intact, no murmurs rubs or gallops GI: abdomen soft, non-tender, non-distended; no palpable mass or hepatosplenomegaly Skin: no lesions, rashes or trauma appreciated Neuro: AAOx3, normal speech, moving all extremities Extremities: no rashes, no trauma, pale Psych: Appropriate mood and affect Objective Last Vital Signs Temp 36.5 C 02/14/22 22:55 Pulse 68 02/14/22 22:55 Resp 16 02/14/22 22:55 BP 117/79 02/14/22 22:55 Pulse Ox 92 02/14/22 22:55 Laboratory Results - last 24 hr 02/13/22 23:50 Troponin I Cancelled
[2022-02-15] VITALS (7 sets, daily range): BP systolic 126; BP diastolic 85; PULSE 63–126; RESP 1–22; TEMP 35.7; O2SAT 83–94
[2022-02-15] MEDS: HYDROcodone 5/Acetaminophen 325 TAB PO ×2 (00:59→08:55)
[2022-02-15] MEDS: Albuterol/Ipratropium 3 ML UPD VIAL UPD ×2 (00:59→08:25)
[2022-02-15] MEDS: methylPREDNISolone SUCC 40 MG VIAL IVP (06:20)
[2022-02-15] MEDS: Normal Saline Flush 10 ML SYR IVP ×2 (06:21→08:51)
[2022-02-15 06:44] LABS: Abs Immature Grans 0.49 10^3/uL (0.0-0.06); Absolute Monocyte Count 0.83 10^3/uL (0.1-0.8); Basophils % 0.4; Eosinophils % 0.6; HCT 50.3 % (36.0-46.0); HGB 16.7 g/dL (11.2-15.7); Immature Grans % 2.4; Lymphocytes % 5.9; MCHC 33.2 % (32.0-36.0); MCV 90 fL (80-95); MPV 9.9 fL (8.0-11.0); Monocytes % 4.1; Neutrophils % 86.6; Platelet Count 282 10^3/uL (130-400); RBC 5.57 10^6/uL (3.93-5.22); RDW 13.4 % (11.7-14.6); RDW-SD 45.3 fL; WBC 20.32 10^3/uL (4.4-10.8)
[2022-02-15 06:46] LABS: Absolute Basophil Count 0.08 10^3/uL (0.0-0.2); Absolute Eosinophil Count 0.12 10^3/uL (0.0-0.7)
[2022-02-15 06:52] LABS: Anion Gap 8.9 mmol/L (3-11); BUN 22 mg/dL (7-18); CO2 27.1 mmol/L (21.0-32.0); CREATININE 1.2 mg/dL (0.55-1.02); Calcium 9.8 mg/dL (8.5-10.1); Chloride 95 mmol/L (98-107); Estimated GFR 45.52 (mL/min/1.73m2); Glucose 212 mg/dL (74-106); Magnesium 2.7 mg/dL (1.8-2.4); Potassium 3.8 mmol/L (3.5-5.1); Sodium 131 mmol/L (136-145)
[2022-02-15] MEDS: Enoxaparin 40 MG/0.4 ML SYR SC (08:49)
[2022-02-15] MEDS: Omeprazole 20 MG CAPCR PO (08:50)
[2022-02-15] MEDS: Azithromycin 250 MG TAB PO (08:50)
[2022-02-15] MEDS: Meloxicam 15 MG TAB 7.5 MG PO (08:50)
[2022-02-15] MEDS: Pregabalin 50 MG CAP 150 MG PO (08:50)
[2022-02-15] MEDS: Cetirizine 10 MG TAB PO (08:50)
--- NOTE | 2022-02-15 11:13 | PDOC.CMDIS ---
- If Service Date Differs Date of service: 02/15/22 Time of Service: 11:13 LACE Index Scoring Tool - Questions: Length of Stay (in days): 1 Acuity (Admit via E.D.?): Yes Comorbidities: Chronic Pulmonary Disease E.D. Visits: 1 - Answers: Total Score: 7 Risk of Readmission: Low Risk Care Management Discharge Reason for Hospitalization: COPD Discharge Plan: Jamir will return home today with no new services. She qualified for new home O2, but she left prior to this being coordinated. Javy will follow up with her out patient. Her son will drive her home via private vehicle when ready. She will follow up with her PCP and discharge plan of care. She is happy to be going home. Patient/Family Education Needs: Review discharge instructions regarding activity levels and medications, discussion of self care needs including ask me three. Services Needed at Discharge: Oxygen Therapy (Javy)
--- NOTE | 2022-02-15 11:29 | W.PM.DS.N ---
Date of service: 02/15/22 Time of Service: 11:29 DS: Diagnosis Discharge Diagnosis (1) COPD exacerbation: Status: Acute Asessment and Plan: complete 5 days of azithromycin steroid burst. now qualified for oxygen (2) Asthma: Status: Chronic (3) Hypoxia: Status: Acute Asessment and Plan: qualified for home oxygen. education provided by respiratory therapy. declines home health (4) Nicotine dependence: Status: Acute Asessment and Plan: smoking cessation discussed. re-inforced no smoking with oxygen. Discharge Plan Disposition Patient Disposition: HOME Condition: Improving Discharge Details Reason For Visit: COPD Admit Date/Time: 02/14/22 00:18 Admit Provider: Mingo Kaur Attending Provider: Mingo Kaur Primary Care Provider: Renetta Flaherty Hospital Course Hospital Course: This is a 62 female with COPD (per ED record) who presents to the ED with a one week history of dry cough and progressive SOB.?She continues to smoke. Her work up in the ED is concerning for COPD exacerbation. She was given IV steroids, azithromycin and admitted to med/surg unit for copd exacerbation. Her symptoms improved rapidly but she was unable to be weaned from oxygen. She was qualified for home oxygen and is requesting discharge to home. She will be started on symbicort and discharged to complete a steroid burst and course of azithromycin. She declines home health services. She should be referred to pulmonology for outpatient follow up. (I see no pulmonary function testing or formal diagnosis of copd in her medical record). discharge discussed with DR Flor. Home Meds and New Rx's Prescriptions: New azithromycin 250 mg Tablet 250 mg PO DAILY Qty: 4 0RF prednisone 20 mg tablet 40 mg PO DAILY Qty: 10 0RF budesonide-formoterol [Symbicort] 80-4.5 mcg/actuation HFA aerosol inhaler 2 puff inhalation BID Qty: 10.2 0RF Continued cetirizine 10 MG tablet 10 mg PO DAILY meloxicam 7.5 MG tablet 7.5 mg PO DAILY omeprazole 20 MG capsule,delayed release(DR/EC) 20 mg PO DAILY albuterol sulfate [Proventil HFA] 6.7 GM HFA aerosol inhaler 2 puff IN PRN PRN fluoxetine 40 MG capsule 40 mg PO DAILY trazodone 50 MG tablet 50 mg PO PRN PRN lorazepam 0.5 MG tablet 0.5 mg PO PRN PRN cholecalciferol (vitamin D3) 50,000 UNIT capsule 50,000 units PO DIRECTED atorvastatin [Lipitor] 20 mg tablet 20 mg PO QPM Label Comments: TAKE ONE TABLET BY MOUTH EVERY DAY hydrocodone-acetaminophen 10-325 mg tablet 1 tab PO Q6H PRN PRN Label Comments: TAKE ONE TABLET BY MOUTH EVERY 6 HOURS - MAX DAILY DOSE OF 4 PER DAY pregabalin [Lyrica] 150 mg capsule 150 mg PO BID Label Comments: TAKE ONE CAPSULE BY MOUTH TWICE A DAY Discharge Instructions Instructions: Using Oxygen at Home (DC), COPD (Chronic Obstructive Pulmonary Disease) (DC), Pulse Oximetry (DC) Additional Instructions: use oxygen as directed, absolutely no smoking while using or around the oxygen. the best thing you can do for your health is to?quit smoking.? continue antibiotic and steroid as directed even if you feel better. Stand Alone Forms: Nursing Discharge Form Referrals: Renetta Flaherty [Primary Care Provider] - (please call you doctors office for an appointment in the next 2 weeks [phone]) Amelia Alarcon MD [ [facility] STAFF PHYSICIAN] - Activity:: Activity as Tolerated Equipment/Supplies:: 2 liters NC Diet:: As Tolerated Discharge Orders Discharge Orders: Discharge Order (Routine); Ordered 02/15/22 Ordered By: Mirtha Weiner Discharge Data Discharge Date/Time-TO BE ENTERED AT DEPARTURE: 02/15/22 13:59 DS: Summary Time Spent with Patient providing and/or coordinating discharge services: Greater than 30 minutes Status at Discharge Functional status at discharge: independent ambulation Overall status at discharge: patient is not back to baseline Mental Status: mental status grossly normal Speech and Movement: speech and movement normal Mood: congruent mood Affect: normal affect Exam Const General: cooperative, comfortable and no acute distress Nutritional Appearance: overweight Orientation: alert, awake and oriented x3 HENMT Head: normal to inspection, normocephalic and atraumatic Mouth: oral mucosae normal Chest Chest: normal inspection of the chest Resp Effort & Inspection: cough Quality of cough: wet and other (shortness of breath with exertion) Auscultation: diminished lung sounds and wheezes expiratory wheezes Cardio Rate: regular rate Rhythm: regular rhythm GI Inspection: normal to inspection Auscultation: normal bowel sounds Skin General skin exam: no rashes or lesions noted Neuro General: patient alert, patient awake, patient oriented x3 and no focal motor deficits Extrem General: normal to inspection and no pedal edema Psych Mental Status: mental status grossly normal Speech and Movement: speech and movement normal Mood: congruent mood Affect: normal affect DS: Data Vitals/I&O Vitals and I&O: Vital Signs Temperature 35.7 C L 02/15/22 07:25 Temperature Source Tympanic 02/15/22 07:25 Pulse 65 02/15/22 08:26 Pulse Rhythm Regular 02/15/22 08:58 Pulse 128 H 02/13/22 21:40 Respiratory Rate 18 02/15/22 08:26 Respiratory Effort 02/15/22 08:58 Respiratory Depth Normal 02/15/22 08:58 Respiratory Pattern Normal 02/15/22 08:58 Blood Pressure 126/85 02/15/22 07:25 Blood Pressure Mean 81 02/13/22 21:31 Blood Pressure Position Supine 02/13/22 20:53 Pulse Oximetry 94 02/15/22 08:26 Oxygen Delivery Method Nasal Cannula 02/15/22 08:25 Oxygen Flow Rate 2 02/15/22 08:26 Pain Level 8 02/15/22 08:55 Intake & Output 02/14/22 02/14/22 02/15/22 11:59 23:59 11:59 Intake Total 250 / 250 240 / 240 Balance 250 / 250 240 / 240 Intake: Oral 250 / 250 240 / 240 Other: Urine Color Yellow Yellow Urine Appearance Clear Clear Urine Odor Normal Normal Comment pT goes to the bathroom independently, she also stated that she did get up to void in toilet. Patiet reported had voided a few minutes ago. Urine amount not measured. pT goes to the bathroom independently. Stool Size Moderate Stool Characteristics Soft Formed Brown Voiding Methods Toilet Toilet Toilet Data Completed and Pending Labs on day of discharge: Labs from last 24 hours 02/15/22 02/15/22 06:10 06:10 WBC 20.32 H RBC 5.57 H Hgb 16.7 H Hct 50.3 H MCV 90 MCH 30.0 MCHC 33.2 RDW 13.4 Plt Count 282 MPV 9.9 Immature Gran % 2.4 Neutrophils % 86.6 Lymphocytes % 5.9 Monocytes % 4.1 Eosinophils % 0.6 Basophils % 0.4 Nucleated RBC % 0.0 Absolute Neutrophils 17.60 H Absolute Lymphocytes 1.20 Absolute Monocytes 0.83 H Absolute Eosinophils 0.12 Absolute Basophils 0.08 Sodium 131 L Potassium 3.8 Chloride 95 L Carbon Dioxide 27.1 Anion Gap 8.9 BUN 22 H Creatinine 1.2 H Estimated GFR/1.73 m2 45.52 Glucose 212 H Calcium 9.8 Magnesium 2.7 H PFSH All Active Problems (Updated 02/16/22 @ 00:09 by RUMA MARKHAM) Nicotine dependence (Acute) COPD exacerbation (Acute) Asthma (Chronic) Hypoxia (Acute) Medical History COPD (chronic obstructive pulmonary disease) Social History Smoking/Tobacco Use Status: Current-Occasional Smoking risk assessment performed?: Yes Alcohol Intake: never Drug use: Never Substance use type: does not use Do you feel safe at home: Yes Do you feel safe in your relationship?: Yes
== END 2022-02-15 13:59 | disposition home or self-care (01) ==
LOC: ER 02-14 00:30 → MS 02-14 01:09
PROVIDERS: Nurse Practitioner Family; Physician Assistant; Admitting Provider General Practice; Emergency Provider Emergency Medicine; PCP Nurse Practitioner Family; Visit Provider General Practice
DX: J44.1 Chronic obstructive pulmonary disease with (acute) exacerbation (principal); R09.02 Hypoxemia; F17.210 Nicotine dependence, cigarettes, uncomplicated; R00.0 Tachycardia, unspecified; R06.02 Shortness of breath; Z79.899 Other long term (current) drug therapy; R05.8 Other specified cough; Z20.822 Contact with and (suspected) exposure to COVID-19
CPT/HCPCS: 36415; 80048; 80053; 82805; 87637; 93005; 94618; 94640; 96361; 96365; 96366; 96367; 96372; 96374; 96375; 96376; 99285; J1650; 71045; 83735; 83880; 84484; 85025; 85379; 93010; 99217; 99219; 99232; G0378; J0456; J2930; J7614; J7620

== ENCOUNTER 2022-03-16 03:34 | Outpatient (CLI) | payer MEDICAID, SELFPAY ==
[2022-03-16] MEDS: Albuterol HFA 18 GM 200 PUFF INH IH (14:26)
[2022-03-16] MEDS: Inhaler, Assist Device 1 EACH MC (14:27)
--- NOTE | 2022-03-21 18:14 | W.PFT ---
Date of service: 03/16/22 Time of Service: 13:15 Pulmonary Function Test Result Requesting Provider Renetta Whitlock Indications: COPD and asthma Interpretation Spirometry: There is moderate airflow limitation. There is no significant bronchodilator response. The FVC is low. Lung Volumes: Normal lung volumes. Diffusion Capacity: The diffusion is low Airway Pressure: Airways resistance is low. Impression Moderate airflow obstruction with a reduced diffusion. This could represent COPD with emphysema. The FVC is likely due to significant airflow obstruction. Clinical Correlation therefore is recommended.
== END 2022-03-16 03:35 | disposition home or self-care (01) ==
LOC: RT 03:34
PROVIDERS: PCP Nurse Practitioner Family; Visit Provider Nurse Practitioner Family
DX: R94.2 Abnormal results of pulmonary function studies (principal); J44.9 Chronic obstructive pulmonary disease, unspecified; R06.09 Other forms of dyspnea; R05.8 Other specified cough; F17.210 Nicotine dependence, cigarettes, uncomplicated
CPT/HCPCS: 94060; 94726; 94729

== ENCOUNTER 2022-09-04 15:21 | Emergency (ER) | payer MEDICAID, SELFPAY ==
[2022-09-04 15:23] VITALS: BP 163/94; PULSE 86; RESP 20; TEMP 36.6; O2SAT 91
--- NOTE | 2022-09-04 15:51 | ED.GENADUL_ITS ---
Discharge Plan Disposition Patient Disposition: Home Condition: Stable Discharge Details Clinical Impression: Chronic shoulder pain Primary Care Provider: Renetta Flaherty ED Provider: Stevo Gannon Home Meds and New Rx's Prescriptions: New cyclobenzaprine 5 mg tablet 5 mg PO QHS PRN (Reason: muscle spasm) Qty: 10 0RF lidocaine [Lidoderm] 5 % adhesive patch,medicated 1 patch topical DAILY Qty: 15 0RF Rx Instructions: leave on most painful area for up to 12 hrs No Action cetirizine 10 MG tablet 10 mg PO DAILY meloxicam 7.5 MG tablet 7.5 mg PO DAILY omeprazole 20 MG capsule,delayed release(DR/EC) 20 mg PO DAILY albuterol sulfate [Proventil HFA] 6.7 GM HFA aerosol inhaler 2 puff IN PRN PRN fluoxetine 40 MG capsule 40 mg PO DAILY trazodone 50 MG tablet 50 mg PO PRN PRN lorazepam 0.5 MG tablet 0.5 mg PO PRN PRN cholecalciferol (vitamin D3) 50,000 UNIT capsule 50,000 units PO DIRECTED atorvastatin [Lipitor] 20 mg tablet 20 mg PO QPM Label Comments: TAKE ONE TABLET BY MOUTH EVERY DAY hydrocodone-acetaminophen 10-325 mg tablet 1 tab PO Q6H PRN PRN Label Comments: TAKE ONE TABLET BY MOUTH EVERY 6 HOURS - MAX DAILY DOSE OF 4 PER DAY pregabalin [Lyrica] 150 mg capsule 150 mg PO BID Label Comments: TAKE ONE CAPSULE BY MOUTH TWICE A DAY azithromycin 250 mg Tablet 250 mg PO DAILY Qty: 4 0RF prednisone 20 mg tablet 40 mg PO DAILY Qty: 10 0RF budesonide-formoterol [Symbicort] 80-4.5 mcg/actuation HFA aerosol inhaler 2 puff inhalation BID Qty: 10.2 0RF Discharge Instructions Instructions: Shoulder Pain (ED) Additional Instructions: Please follow-up with your primary care physician. Please follow-up with orthopedic team as needed. Medical Decision Making 62-year-old female history of degenerative disc disease, presents with atrauma tic left shoulder pain over the past 3 months, intermittent in nature posterior shoulder above scapula is the point tenderness, no neck pain no chest pain or shortness of breath. Hemodynamically stable afebrile nontoxic. Range of motion intact however ranging the shoulder does reproduce discomfort. Intermittent paresthesia shooting down the arm. Consider cervical radiculopathy versus rotator cuff injury versus osteoarthritis of the shoulder. Low suspicion for fracture or dislocation. Low suspicion for ACS aortic pathology or PE. Will obtain screening x-ray as patient has not been evaluated in the past, will provide analgesia anti-inflammatories. Pending reassessment and imaging will likely refer to orthopedic team as well as neurology team as needed. 19: 09 patient resting comfortably no acute distress. X-ray unremarkable. Will provide orthopedic follow-up as needed for chronic left shoulder pain HPI General Date/Time Provider Initiated Documentation: 09/04/22 15:42 . HPI Narrative: 62-year-old female presents with 3 months of atraumatic left shoulder pain r adiating from posterior shoulder down into the arm associate with intermittent paresthesia shooting down the arm into fingers, does have history of degenerative disc disease throughout her spine. No chest pain or shortness of breath. Related Data Home Medications Medication Instructions Recorded Confirmed cetirizine 10 mg tablet 10 mg PO DAILY 11/08/12 09/04/22 meloxicam 7.5 mg tablet 7.5 mg PO DAILY 11/08/12 09/04/22 omeprazole 20 mg capsule,delayed 20 mg PO DAILY 11/08/12 09/04/22 release albuterol sulfate 90 mcg/actuation 2 puff IN PRN PRN 11/07/16 09/04/22 aerosol inhaler (Proventil HFA) cholecalciferol (vitamin D3) 1,250 50,000 units PO DIRECTED 04/19/18 02/13/22 mcg (50,000 unit) capsule fluoxetine 40 mg capsule 40 mg PO DAILY 04/19/18 02/13/22 lorazepam 0.5 mg tablet 0.5 mg PO PRN PRN 04/19/18 09/04/22 trazodone 50 mg tablet 50 mg PO PRN PRN 04/19/18 02/13/22 atorvastatin 20 mg tablet (Lipitor) 20 mg PO QPM 02/14/22 09/04/22 hydrocodone 10 mg-acetaminophen 1 tab PO Q6H PRN PRN 02/14/22 09/04/22 325 mg tablet pregabalin 150 mg capsule (Lyrica) 150 mg PO BID 02/14/22 09/04/22 azithromycin 250 mg tablet 250 mg PO DAILY #4 tabs 02/15/22 budesonide-formoterol HFA 80 2 puff inhalation BID #10.2 grams 02/15/22 09/04/22 mcg-4.5 mcg/actuation aerosol inhaler (Symbicort) prednisone 20 mg tablet 40 mg PO DAILY #10 tabs 02/15/22 cyclobenzaprine 5 mg tablet 5 mg PO QHS PRN muscle spasm #10 09/04/22 tabs lidocaine 5 % topical patch 1 patch topical DAILY #15 ea 09/04/22 (Lidoderm) Previous Rx's Medication Instructions Recorded azithromycin 250 mg tablet 250 mg PO DAILY #4 tabs 02/15/22 budesonide-formoterol HFA 80 2 puff inhalation BID #10.2 grams 02/15/22 mcg-4.5 mcg/actuation aerosol inhaler (Symbicort) prednisone 20 mg tablet 40 mg PO DAILY #10 tabs 02/15/22 cyclobenzaprine 5 mg tablet 5 mg PO QHS PRN muscle spasm #10 09/04/22 tabs lidocaine 5 % topical patch 1 patch topical DAILY #15 ea 09/04/22 (Lidoderm) Allergies Allergy/AdvReac Type Severity Reaction Status Date / Time aspartame AdvReac Intermediate Other (See Unverified 09/04/22 16:34 Comment) codeine [Codeine] AdvReac Intermediate Headache Unverified 09/04/22 16:34 and vomiting Penicillins AdvReac Intermediate vomiting Unverified 09/04/22 16:34 General Stated Complaint: Orthopedic ALEXA: 4 Review of Systems Narrative: Review of Systems Constitutional: negative Eyes: negative ENT: negative Cardiovascular: negative Respiratory: negative Gastrointestinal: negative : negative Musculoskeletal: Shoulder pain Skin: negative Neurologic: negative Psych: negative PFSH All Active Problems (Updated 09/04/22 @ 17:10 by Stevo Gannon MD) Chronic shoulder pain (Acute) Nicotine dependence (Acute) COPD exacerbation (Acute) Asthma (Chronic) Hypoxia (Acute) Medical History COPD (chronic obstructive pulmonary disease) Social History Smoking/Tobacco Use Status: Current every day Tobacco Type: cigarettes Smoking risk assessment performed?: Yes Alcohol Intake: never Drug use: Never Substance use type: marijuana Do you feel safe at home: Yes Do you feel safe in your relationship?: Yes Exam Narrative Exam Narrative: Physical Examination General: alert, awake, cooperative, resting comfortably, no acute distress HEENT: normocephalic, atraumatic; PERRL, EOM intact, conjunctiva normal; no nasal discharge; moist mucous membranes, oral and pharyngeal mucosa normal, tolerating secretions Neck: supple, trachea midline; full ROM Chest: normal to inspection Back: No midline spinal tenderness Skin: no lesions, rashes or trauma appreciated Neuro: AAOx3, normal speech, moving all extremities Extremities: Able to range left shoulder, abduction and adduction intact, internal/external rotation intact however these motions do reproduce discomfort in posterior left shoulder above scapula, warm well perfused extremity median radial ulnar nerve distribution sensory exam intact. Psych: Appropriate mood and affect Course Vital Signs Vital signs: Vital Signs Temperature 36.6 C 09/04/22 15:23 Pulse 86 09/04/22 15:23 Respiratory Rate 20 09/04/22 15:23 Blood Pressure 163/94 H 09/04/22 15:23 Pulse Oximetry 91 L 09/04/22 15:23 Temperature 36.6 C 09/04/22 15:23 Temperature Source Skin 09/04/22 15:23 Pulse 86 09/04/22 15:23 Respiratory Rate 20 09/04/22 15:23 Respiratory Effort Non-Labored 09/04/22 15:27 Blood Pressure 163/94 H 09/04/22 15:23 Blood Pressure Position Sitting 09/04/22 15:23 Pulse Oximetry 91 L 09/04/22 15:23 Oxygen Delivery Method Room Air 09/04/22 15:23 Oxygen Flow Rate 0 09/04/22 15:23 Pain Level 10 09/04/22 15:23
--- NOTE | 2022-09-04 16:00 | DI.RAD_ITS ---
Exam(s) XR SHOULDER LT COMPLETE 2+V EXAM: XR SHOULDER LT COMPLETE 2+V CLINICAL HISTORY: shoulder pain. TECHNIQUE: 2D digital imaging was performed of the left shoulder. Four images were obtained. AP, G rashey, and Y views were obtained. COMPARISON: No exams were available for comparison FINDINGS: BONES: No acute fracture is present. No bony destructive lesion is seen. JOINTS: No dislocation present. SOFT TISSUE: Normal. IMPRESSION: No acute abnormality. DATA REPOSITORY: RADIATION DOSE DELIVERED:
[2022-09-04] MEDS: Ketorolac 15 MG/ML VIAL IM (16:17)
[2022-09-04] MEDS: Cyclobenzaprine 10 MG TAB 5 MG PO (16:17)
[2022-09-04] MEDS: Lidocaine 5% Patch 1 PATCH TP (16:38)
== END 2022-09-04 17:22 | disposition home or self-care (01) ==
PROVIDERS: Emergency Provider Emergency Medicine; PCP Nurse Practitioner Family
DX: G89.29 Other chronic pain (principal); M25.512 Pain in left shoulder; J44.9 Chronic obstructive pulmonary disease, unspecified
CPT/HCPCS: 96372; 99284; 73030; J1885

== ENCOUNTER 2022-09-27 02:54 | Outpatient (CLI) | payer MEDICAID, SELFPAY ==
--- NOTE | 2022-09-27 06:45 | DI.MRI_ITS ---
Exam(s) MR UPPER JOINT LT WO EXAM: MR UPPER JOINT LT WO CLINICAL HISTORY: L SHOULDER PAIN,[id number]. TECHNIQUE: Multiplanar multisequence MRI was performed. COMPARISON: CR XR SHOULDER LT COMPLETE 2+V from 09/04/2022 FINDINGS: BONES: There is no fracture or contusion pattern. JOINTS: Mild degenerative changes are seen at the acromioclavicular joint. The glenohumeral joint is normal. TENDONS: Supraspinatus: There is an intrasubstance tear of the supraspinatus tendon at its insertion site. Th ere is tendinosis of the supraspinatus tendon. Infraspinatus: There is tendinosis of the infraspinatus tendon. Subscapularis: There is tendinosis of the subscapularis tendon. There is hyperintense signal seen in the subscapularis tendon at its insertion site suspicious for partial tear. Teres [place]: Unremarkable. Biceps and [place]: Unremarkable. MUSCLES: Unremarkable. GLENOID LABRUM: Unremarkable on this noncontrast examination. SOFT TISSUES: Unremarkable. LIGAMENTS: Unremarkable. OTHER: Subacromial and subdeltoid bursae are unremarkable. IMPRESSION: 1. There is intrasubstance tear of the supraspinatus tendon at its insertion site. 2. Findings suspicious for tear at the insertion site of the subscapularis tendon. 3. Tendinosis of the supraspinatus, infraspinatus and subscapularis tendons. 4. Degenerative changes at the acromioclavicular joint. DATA REPOSITORY:
== END 2022-09-27 03:14 ==
LOC: DI 02:54
PROVIDERS: PCP Nurse Practitioner Family; Visit Provider Student in an Organized Health Care Education/Training Program
DX: G89.29 Other chronic pain (principal); M19.012 Primary osteoarthritis, left shoulder; M75.82 Other shoulder lesions, left shoulder; M75.102 Unspecified rotator cuff tear or rupture of left shoulder, not specified as traumatic
CPT/HCPCS: 73221

== ENCOUNTER 2023-01-22 02:19 | Outpatient (CLI) | payer MEDICAID, SELFPAY ==
--- NOTE | 2023-01-22 | DI.MRI_ITS ---
Exam(s) MR LUMBAR SPINE WO EXAM: MR LUMBAR SPINE WO CLINICAL HISTORY: LUMBAR RADICULOPATHY M54.16. TECHNIQUE: Multiplanar multisequence MRI of the Lumbar spine was performed. COMPARISON: No exams were available for comparison FINDINGS: Bones: The last intervertebral disc space is designated the L5/S1 level for the numbering purpose of this examination. The vertebral body heights are well maintained. Alignment is satisfactory. The si gnal characteristics are unremarkable. Cord: The conus tip ends at the L1 level. It is of normal size and signal intensity. T12-L1: No disc herniations or bulges are present. No central spinal canal or neural foraminal stenos is. L1-2: No disc herniations or bulges are present. No central spinal canal or neural foraminal stenosis . L2-3: No disc herniations or bulges are present. No central spinal canal or neural foraminal stenosis . L3-4: There is mild discal protrusion into the left neural foramen causing moderate left neural kate inal stenosis. No significant central spinal canal or right neural foraminal stenosis is seen. L4-5: There are degenerative changes of the facets. There is a diffuse disc bulge. There is mild na rrowing of the central spinal canal. There is mild bilateral neural foraminal narrowing. L5-S1: There are degenerative changes of the facets. No focal disc herniation is seen. No central s claude canal or neural foraminal stenosis. Soft tissues: The visualized SI joints and sacrum are well maintained. The paraspinal soft tissues ar e unremarkable. IMPRESSION: Multilevel degenerative changes in the lumbar spine as described above. Central and neural foraminal narrowing is seen at L3-4 through L5-S1 as described above. DATA REPOSITORY:
== END 2023-01-22 02:39 ==
PROVIDERS: PCP Nurse Practitioner Family; Visit Provider Nurse Practitioner Family
DX: M51.36 Other intervertebral disc degeneration, lumbar region (principal)
CPT/HCPCS: 72148

== ENCOUNTER 2023-03-26 12:42 | Emergency (ER) | payer MEDICAID, SELFPAY ==
[2023-03-26 12:45] VITALS: BP 145/86; PULSE 65; RESP 16; TEMP 36.9; O2SAT 98
--- NOTE | 2023-03-26 14:24 | ED.GENADUL_ITS ---
Discharge Plan Disposition Patient Disposition: Home Discharge Details Clinical Impression: Abscess Primary Care Provider: Renetta Flaherty ED Provider: Duke Grover Home Meds and New Rx's Prescriptions: New sulfamethoxazole-trimethoprim [Bactrim DS] 800-160 mg tablet 1 tab PO BID Qty: 14 0RF Continued oxycodone 10 mg tablet 10 mg PO Q4H PRN cetirizine 10 MG tablet 10 mg PO DAILY meloxicam 7.5 MG tablet 7.5 mg PO DAILY omeprazole 20 MG capsule,delayed release(DR/EC) 20 mg PO DAILY albuterol sulfate [Proventil HFA] 6.7 GM HFA aerosol inhaler 2 puff IN PRN PRN fluoxetine 40 MG capsule 40 mg PO DAILY lorazepam 0.5 MG tablet 0.5 mg PO PRN PRN atorvastatin [Lipitor] 20 mg tablet 20 mg PO QPM Patient Comments: TAKE ONE TABLET BY MOUTH EVERY DAY pregabalin [Lyrica] 150 mg capsule 150 mg PO BID Patient Comments: TAKE ONE CAPSULE BY MOUTH TWICE A DAY budesonide-formoterol [Symbicort] 80-4.5 mcg/actuation HFA aerosol inhaler 2 puff inhalation BID Qty: 10.2 0RF Discharge Instructions Instructions: Abscess (ED) Additional Instructions: You may leave dressing in place as long as it is not saturated. After removal of dressing in 24 hours please keep wound clean and dry and you may apply warm compresses 3-4 times daily to help with drainage. Return the emergency dep artment immediately for any new or significant worsening symptoms otherwise follow-up with your primary care provider for recheck of your abscess Referrals: Renetta Flaherty [Primary Care Provider] - 3 days Discharge Data Discharge Date/Time-TO BE ENTERED AT DEPARTURE: 03/26/23 14:35 Medical Decision Making Patient presenting the emergency department for chief complaint of buttock abscess. Patient reports noting 1 week of swelling pain and discomfort right on the surface of the tailbone. Patient denies any injury or trauma or other symptoms. Physical exam shows a small abscess just to the tailbone. Surface of abscess does appear abnormal but patient states she has been scratching and picking at it which is consistent with appearance. Patient gave verbal consent to I&D of abscess. Please see procedure note. Only scant amount of bloody discharge was able to be appreciated so we will place patient on Bactrim and have patient follow-up with primary care provider for reassessment. After discussion of diagnosis and plan of care patient has no further needs, questions, or concerns and states clear understanding to return to the emergency department for any worsening symptoms. This documentation was generated using [employer] dictation system, please disregard any oddities of phrase or misspellings. HPI General Mode of arrival: ambulatory . Date/Time Provider Initiated Documentation: 03/26/23 13:43 . Limitations to Documentation: no limitations . Information obtained by: patient and RN notes reviewed . History of Present Illness 63 year old F presents to the emergency department with the chief complaint of Buttock abscess, described as moderate, Quality is described as aching, and is localized to the buttocks. Patient reports no radiation. Patient started experiencing this week(s) (1) and it has been constant. No relieving factors improve symptom(s), No exacerbating factors reported . Patient notes no other symptoms.. Patient did receive the following treatments prior to arrival, none Related Data Home Medications Medication Instructions Recorded Confirmed cetirizine 10 mg tablet 10 mg PO DAILY 11/08/12 03/26/23 meloxicam 7.5 mg tablet 7.5 mg PO DAILY 11/08/12 03/26/23 omeprazole 20 mg capsule,delayed 20 mg PO DAILY 11/08/12 03/26/23 release albuterol sulfate 90 mcg/actuation 2 puff IN PRN PRN 11/07/16 03/26/23 aerosol inhaler (Proventil HFA) fluoxetine 40 mg capsule 40 mg PO DAILY 04/19/18 03/26/23 lorazepam 0.5 mg tablet 0.5 mg PO PRN PRN 04/19/18 03/26/23 atorvastatin 20 mg tablet (Lipitor) 20 mg PO QPM 02/14/22 03/26/23 pregabalin 150 mg capsule (Lyrica) 150 mg PO BID 02/14/22 03/26/23 budesonide-formoterol HFA 80 2 puff inhalation BID #10.2 grams 02/15/22 03/26/23 mcg-4.5 mcg/actuation aerosol inhaler (Symbicort) oxycodone 10 mg tablet 10 mg PO Q4H PRN 10/04/22 03/26/23 sulfamethoxazole 800 1 tab PO BID #14 tabs 03/26/23 mg-trimethoprim 160 mg tablet (Bactrim DS) Previous Rx's Medication Instructions Recorded budesonide-formoterol HFA 80 2 puff inhalation BID #10.2 grams 02/15/22 mcg-4.5 mcg/actuation aerosol inhaler (Symbicort) sulfamethoxazole 800 1 tab PO BID #14 tabs 03/26/23 mg-trimethoprim 160 mg tablet (Bactrim DS) Allergies Allergy/AdvReac Type Severity Reaction Status Date / Time latex Allergy Intermediate Skin Rash Unverified 03/26/23 12:52 aspartame AdvReac Intermediate Other (See Unverified 03/26/23 12:52 Comment) codeine [Codeine] AdvReac Intermediate Headache Unverified 03/26/23 12:52 and vomiting Penicillins AdvReac Intermediate vomiting Unverified 03/26/23 12:52 General Stated Complaint: RashLesion ALEXA: 4 Review of Systems Constitutional Constitutional: Denies chills and Denies fever(s) Cardiovascular Cardiovascular: Denies chest pain Gastrointestinal Gastrointestinal: Denies abdominal pain, Denies diarrhea and Denies nausea Integumentary/Breasts Skin/Breast: Reports as per HPI, Reports furuncle and Reports erythema PFSH All Active Problems (Updated 03/26/23 @ 14:28 by Duke Grover NP) Abscess (Acute) Tendonitis of left rotator cuff (Acute) Nicotine dependence (Acute) COPD exacerbation (Acute) Asthma (Chronic) Hypoxia (Acute) Medical History COPD (chronic obstructive pulmonary disease) Social History Smoking/Tobacco Use Status: Current every day Tobacco Type: cigarettes Smoking risk assessment performed?: Yes Alcohol Intake: never Drug use: Never Substance use type: marijuana Current gender identity: female Do you feel safe at home: Yes Do you feel safe in your relationship?: Yes Exam Const General: cooperative, no acute distress and not ill appearing Orientation: alert, awake and oriented x3 HENMT Mouth: moist mucous membranes Resp Effort & Inspection: normal respiratory effort, able to speak in complete sentences and no respiratory distress Skin General skin exam: other (1-1/2 x 1 cm buttock abscess) Neuro General: patient alert, patient awake, patient oriented x3 and moves all extremities Course Vital Signs Vital signs: Vital Signs Temperature 36.9 C 03/26/23 12:45 Pulse 65 03/26/23 12:45 Respiratory Rate 16 03/26/23 12:45 Blood Pressure 145/86 H 03/26/23 12:45 Pulse Oximetry 98 03/26/23 12:45 Temperature 36.9 C 03/26/23 12:45 Temperature Source Temporal Artery Scan 03/26/23 12:45 Pulse 65 03/26/23 12:45 Respiratory Rate 16 03/26/23 12:45 Respiratory Effort Normal 03/26/23 12:48 Blood Pressure 145/86 H 03/26/23 12:45 Blood Pressure Position Sitting 03/26/23 12:45 Pulse Oximetry 98 03/26/23 12:45 Oxygen Delivery Method Room Air 03/26/23 12:45 Oxygen Flow Rate 0 03/26/23 12:45 Pain Level 10 03/26/23 12:45 Procedures Abscess I/D Site: Other (Buttock) Sedation/analgesia: None Local Anesthetic: Lidocaine 2% Amount of anesthesia used (mL): 3 Technique: Incised with #11 Blade Amount of fluid expressed (mL): 1 Irrigation: No Packing used?: None
[2023-03-26] MEDS: Sulfameth/Trimeth DS TAB 1 TAB PO (14:35)
--- NOTE | 2023-03-27 09:21 | CMACTNOTE_ITS ---
Date of service: 03/27/23 Time of Service: 09:22 Care Management Activity Note Activity Note Text Activity Note Text: Jamir is seen in the ED for an abscess. At the request of ED provider, CM contacts patient's PCP (FIDENCIO Pandya, of [facility]) via fax to request they schedule patient for a follow up appointment. She has Medicaid for insurance.
== END 2023-03-26 14:35 | disposition home or self-care (01) ==
PROVIDERS: Emergency Provider Nurse Practitioner Family; PCP Nurse Practitioner Family
DX: L02.31 Cutaneous abscess of buttock (principal)
CPT/HCPCS: 10060

== ENCOUNTER 2025-05-06 11:13 | Emergency (ER) | payer MEDICARE, MEDICAID, SELFPAY ==
[2025-05-06 11:14] VITALS: BP 145/85; PULSE 111; RESP 15; TEMP 36.8; O2SAT 83
[2025-05-06 11:18] VITALS: BP 145/85; PULSE 111; RESP 15; TEMP 36.8; O2SAT 83
--- NOTE | 2025-05-06 11:30 | RT.EKG_ITS ---
APPROVED REPORT Exam: Resting ECG Reason for Exam: SOB Patient Location: E HR:96 bpm ECG Measurements Heart Rate 96 AXIS [place] 123 P 42 QRSd 88 QRS 86 QT 343 T -55 QTc 434 Conclusion Sinus rhythm...normal P axis, V-rate 60- 99 Abnrm T, consider ischemia, anterolateral lds...T <-0.20mV, I aVL V2-V6 Physician: No Stemi, inverted t waves appear new. No st elevation or depression otherwise
[2025-05-06] MEDS: Albuterol/Ipratropium 3 ML UPD VIAL UPD (11:42)
[2025-05-06] MEDS: Furosemide 20 MG/2 ML VIAL IVP (11:42)
--- NOTE | 2025-05-06 11:45 | DI.RAD_ITS ---
Exam(s) XR CHEST 2V PA LATERAL EXAM: XR CHEST 2V PA LATERAL CLINICAL HISTORY: Shortness of breath, suspect CHF. TECHNIQUE: 2D digital imaging was performed. COMPARISON: CR,XR XR PORTABLE CHEST AP from 02/13/2022 FINDINGS: 2 views: Size normal. The mediastinum is not widened. There is no evidence of pulmonary edema, as per request. Mild increased markings in the lingular segment of the left lung appear unchanged from previous. Right lung remains clear. No pleural effusions. IMPRESSION: No evidence of pulmonary edema, as per request. Subtle increased markings in the lingular segment of the left lung. Similar to previous. No pleural effusions. DATA REPOSITORY: RADIATION DOSE DELIVERED:
[2025-05-06 12:00] LABS: BE (Venous) 6 mmol/L (-2-3); HCO3 (Venous) 32 mmol/L (23-28); O2 Sat (Venous) 90 %; TCO2 (Venous) 28 mmol/L (24-29); pO2 (Venous) 56 mmHg
[2025-05-06 12:02] LABS: Abs Immature Grans 0.11 10^3/uL (0.0-0.06); HCT 50.1 % (36.0-46.0); HGB 15.7 g/dL (11.2-15.7); Immature Grans % 1.4 %; MCH 29.3 pg (27.0-33.0); MCHC 31.3 % (32.0-36.0); MCV 94 fL (80-95); MPV 8.9 fL (8.0-11.0); Platelet Count 250 10^3/uL (130-400); RBC 5.35 10^6/uL (3.93-5.22); RDW 14.8 % (11.7-14.6); RDW-SD 51.4 fL; WBC 7.73 10^3/uL (4.4-10.8)
[2025-05-06 12:03] LABS: pCO2 (Venous) 62 mmHg (41-51)
[2025-05-06 12:14] VITALS: O2SAT 88
[2025-05-06 12:20] LABS: INR 1.0 (0.9-1.1); PTT Activated 29.6 sec (20.6-30.2); Prothrombin Time 10.1 sec (9.1-11.1)
[2025-05-06 12:46] LABS: ALT 14 U/L (14-59); AST < 5 U/L (15-37); Albumin 3.0 g/dL (3.4-5.0); Alkaline Phosphatase 92 U/L (46-116); Anion Gap 6.7 mmol/L (3-11); BUN 7 mg/dL (7-18); Bilirubin, Total 0.3 mg/dL (0.2-1.0); CO2 33.3 mmol/L (21.0-32.0); Calcium 8.8 mg/dL (8.5-10.1); Chloride 100 mmol/L (98-107); Estimated GFR 81.72 (mL/min/1.73m2); Glucose 121 mg/dL (74-106); NT-proBNP 2449 pg/mL (<300); Potassium 4.1 mmol/L (3.5-5.1); Sodium 140 mmol/L (136-145); Total Protein 7.4 g/dL (6.4-8.2); Troponin I 16 ng/L (<or=51)
--- NOTE | 2025-05-06 13:02 | W.ED.GENAD ---
Discharge Plan Disposition Patient Disposition: Home Condition: Good Discharge Details Clinical Impression: Peripheral edema, COPD exacerbation, Hypoxemia Primary Care Provider: Renetta Flaherty ED Provider: Eloy Sinha Home Meds and New Rx's Prescriptions: New ipratropium-albuterol 0.5 mg-3 mg(2.5 mg base)/3 mL solution for nebulization 3 ml IH Q6H Qty: 180 0RF furosemide [Lasix] 20 mg tablet 20 mg PO DAILY Qty: 20 0RF Rx Instructions: Take 1 tablet daily for the next 3 days, and then take 1 tablet daily only as needed for swelling or edema prednisone 50 mg tablet 50 mg PO DAILY Qty: 5 0RF No Action oxycodone 10 mg tablet 10 mg PO Q4H PRN meloxicam 7.5 MG tablet 7.5 mg PO DAILY omeprazole 20 MG capsule,delayed release(DR/EC) 20 mg PO DAILY albuterol sulfate [Proventil HFA] 6.7 GM HFA aerosol inhaler 2 puff IN PRN PRN lorazepam 0.5 MG tablet 0.5 mg PO PRN PRN atorvastatin [Lipitor] 20 mg tablet 20 mg PO QPM Patient Comments: TAKE ONE TABLET BY MOUTH EVERY DAY pregabalin [Lyrica] 150 mg capsule 150 mg PO BID Patient Comments: TAKE ONE CAPSULE BY MOUTH TWICE A DAY budesonide-formoterol [Symbicort] 80-4.5 mcg/actuation HFA aerosol inhaler 2 puff inhalation BID Qty: 10.2 0RF Discharge Instructions Instructions: Swelling, Exacerbation of COPD Additional Instructions: At this time your laboratory workup is stable. Because of your borderline oxygen it is our recommendations that you stay for prolonged observation and/or admission. However as you have chosen to go home, it is my recommendation that you continue to use 1 to 2 L of your home oxygen at all times to maintain oxygen saturation greater than 90%. Please do your best to stop smoking. Please take your inhalers as prescribed. You can use the prescribed nebulizer every 6 hours as needed for wheeze or shortness of breath. In addition to your COPD exacerbation you also have evidence of mild peripheral edema. For the next 3 days please take 1 Lasix tablet every 24 hours. After this take 1 Lasix tablet only as needed daily for swelling. Please cut down on your salt intake. Avoid any salty or preserved foods. Please follow-up closely with your primary care provider to further discuss continued long-term management of your conditions. If you notice any worsening of your symptoms, or any new symptoms such as vomiting, diarrhea, fever, chills, shortness of breath, chest pain, numbness, weakness, or fainting , please return immediately to the emergency department for reevaluation. Please follow up with your primary care provider as soon as possible for reassessment and reevaluation. As always, it was a pleasure participating in your medical care today. Referrals: Renetta Flaherty [Primary Care Provider, Medicine] HPI General Date/Time Provider Initiated Documentation: 05/06/25 11:26. HPI Narrative: This is a 65-year-old female with a past medical history of COPD, high cholesterol, anxiety, GERD, who presents today for evaluation of swelling in her lower extremities. Patient states that for the last 2 to 3 days she has noticed swelling in her feet, and is gradually worsening. She states that she has home oxygen but does not use it. She admits to very mild amount of shortness of breath. She denies fever or chills. She does admit to buying Doritos for the last few days and eating a lot of those which are high in salt. She does still smoke. She denies any other complaints at this time. No other modifying factors. She denies any chest., Pleuritic chest pain, cough, leg pain, recent long trips surgeries or procedures. Related Data Home Medications ?Medication ?Instructions ?Recorded ?Confirmed meloxicam 7.5 mg tablet 7.5 mg PO DAILY 11/08/12 05/06/25 omeprazole 20 mg capsule,delayed 20 mg PO DAILY 11/08/12 05/06/25 release albuterol sulfate 90 mcg/actuation 2 puff IN PRN PRN 11/07/16 05/06/25 aerosol inhaler (Proventil HFA) lorazepam 0.5 mg tablet 0.5 mg PO PRN PRN 04/19/18 05/06/25 atorvastatin 20 mg tablet (Lipitor) 20 mg PO QPM 02/14/22 05/06/25 pregabalin 150 mg capsule (Lyrica) 150 mg PO BID 02/14/22 05/06/25 budesonide-formoterol HFA 80 2 puff inhalation BID #10.2 grams 02/15/22 05/06/25 mcg-4.5 mcg/actuation aerosol inhaler (Symbicort) oxycodone 10 mg tablet 10 mg PO Q4H PRN 10/04/22 05/06/25 furosemide 20 mg tablet (Lasix) 20 mg PO DAILY #20 tabs 05/06/25 ipratropium 0.5 mg-albuterol 3 mg 3 ml inhalation Q6H #180 mL 05/06/25 (2.5 mg base)/3 mL nebulization soln prednisone 50 mg tablet 50 mg PO DAILY #5 tabs 05/06/25 Previous Rx's ?Medication ?Instructions ?Recorded budesonide-formoterol HFA 80 2 puff inhalation BID #10.2 grams 02/15/22 mcg-4.5 mcg/actuation aerosol inhaler (Symbicort) furosemide 20 mg tablet (Lasix) 20 mg PO DAILY #20 tabs 05/06/25 ipratropium 0.5 mg-albuterol 3 mg 3 ml inhalation Q6H #180 mL 05/06/25 (2.5 mg base)/3 mL nebulization soln prednisone 50 mg tablet 50 mg PO DAILY #5 tabs 05/06/25 Allergies Allergy/AdvReac Type Severity Reaction Status Date / Time latex Allergy Intermediate Skin Rash Unverified 05/06/25 11:19 aspartame AdvReac Intermediate Other (See Unverified 05/06/25 11:19 Comment) codeine (Codeine) AdvReac Intermediate Headache Unverified 05/06/25 11:19 and vomiting Penicillins AdvReac Intermediate vomiting Unverified 05/06/25 11:19 General Stated Complaint: GenMedical ALEXA: 3 Exam Narrative Exam Narrative: 1.Const: Well-nourished, Well-developed, appearing stated age 2.Eyes: PERRL, no conjunctival injection, and symmetrical lids. 3.ENT: Atraumatic external nose and ears. Moist MM. Neck: Symmetric, trachea midline, No thyromegaly. 4.CVS: +S1/S2, Peripheral pulses 2+ and equal in all extremities. Brisk capillary refill in all extremities. 5.RESP: Unlabored respiratory effort. Wheezes throughout, scattered rhonchi. 6.GI: Soft, Nontender/Nondistended, No hepatosplenomegaly. No guarding or rebound. 7.MSK: Normocephalic/Atraumatic, Extremities w/o deformity or ttp No cyanosis or clubbing, Normal movement of all extremities. +1 pitting edema bilaterally. No calf tenderness. Negative Homans' sign. 8.Skin: Warm, Dry. No rashes or lesions. 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 Sensation grossly intact, no focal neurologic deficits. 10.Psych: (AAO) x3. Appropriate mood and affect Course Vital Signs Vital signs: Vital Signs Temperature 36.8 C 05/06/25 11:14 Pulse 111 H 05/06/25 11:14 Respiratory Rate 15 05/06/25 11:14 Blood Pressure 145/85 H 05/06/25 11:14 Pulse Oximetry 83 L 05/06/25 11:14 Temperature 36.8 C 05/06/25 11:18 Pulse 111 H 05/06/25 11:18 Respiratory Rate 15 05/06/25 11:18 Respiratory Effort Normal 05/06/25 11:30 Blood Pressure 145/85 H 05/06/25 11:18 Blood Pressure Position Sitting 05/06/25 11:18 Pulse Oximetry 88 L 05/06/25 12:14 Oxygen Delivery Method Room Air 05/06/25 12:14 Oxygen Flow Rate 0 05/06/25 12:14 Fraction of Inspired Oxygen (FIO2) 2 05/06/25 12:14 Lab/Test Results Lab/Test Results: Laboratory Tests Range/Units 05/06/25 11:53 WBC (4.4-10.8) 10^3/uL 7.73 RBC (3.93-5.22) 10^6/uL 5.35 H Hgb (11.2-15.7) g/dL 15.7 Hct (36.0-46.0) % 50.1 H MCV (80-95) fL 94 MCH (27.0-33.0) pg 29.3 MCHC (32.0-36.0) % 31.3 L RDW (11.7-14.6) % 14.8 H Plt Count (130-400) 10^3/uL 250 MPV (8.0-11.0) fL 8.9 Immature Gran % % 1.4 Neutrophils % % 65.2 Lymphocytes % % 22.0 Monocytes % % 9.1 Eosinophils % % 1.8 Basophils % % 0.5 Nucleated RBC % (0.0-0.3) % 0.0 Absolute Neutrophils (1.2-6.7) 10^3/uL 5.04 Absolute Lymphocytes (1.2-3.4) 10^3/uL 1.70 Absolute Monocytes (0.1-0.8) 10^3/uL 0.70 Absolute Eosinophils (0.0-0.7) 10^3/uL 0.14 Absolute Basophils (0.0-0.2) 10^3/uL 0.04 PT (9.1-11.1) sec 10.1 INR (0.9-1.1) 1.0 APTT (20.6-30.2) sec 29.6 VBG pH (7.31-7.41) 7.32 VBG pCO2 (41-51) mmHg 62 H* VBG pO2 mmHg 56 VBG HCO3 (23-28) mmol/L 32 H VBG Total CO2 (24-29) mmol/L 28 VBG O2 Saturation % 90 VBG Base Excess (-2-3) mmol/L 6 H Sodium (136-145) mmol/L 140 Potassium (3.5-5.1) mmol/L 4.1 Chloride (98-107) mmol/L 100 Carbon Dioxide (21.0-32.0) mmol/L 33.3 H Anion Gap (3-11) mmol/L 6.7 BUN (7-18) mg/dL 7 Creatinine (0.55-1.02) mg/dL 0.8 Est GFR (CKD-EPI 2020) (mL/min/1.73m2) 81.72 Glucose (74-106) mg/dL 121 H Calcium (8.5-10.1) mg/dL 8.8 Total Bilirubin (0.2-1.0) mg/dL 0.3 AST (15-37) U/L < 5 L ALT (14-59) U/L 14 Alkaline Phosphatase (46-116) U/L 92 Troponin I (<or=51) ng/L 16 NT-Pro-B Natriuret Pep (<300) pg/mL 2449 H Total Protein (6.4-8.2) g/dL 7.4 Albumin (3.4-5.0) g/dL 3.0 L Medical Decision Making This is a 65-year-old female with a past medical history of COPD, high cholesterol, anxiety, GERD, who presents today for evaluation of swelling in her lower extremities. Patient states that for the last 2 to 3 days she has noticed swelling in her feet, and is gradually worsening. She states that she has home oxygen but does not use it. She admits to very mild amount of shortness of breath. She denies fever or chills. She does admit to buying Doritos for the last few days and eating a lot of those which are high in salt. She does still smoke. She denies any other complaints at this time. No other modifying factors. She denies any chest., Pleuritic chest pain, cough, leg pain, recent long trips surgeries or procedures. Exam demonstrates mild peripheral edema, scattered wheezes and rhonchi lung sounds. Oxygenation is in the mid to low 80s at 83%. Differential is high for COPD exacerbation, congestive heart failure, less likely cardiac etiology but this remains on the differential. With the patient's initial oxygenation status, and symptoms I am concerned for these etiologies and the potential need for admission. At the onset of my evaluation of the patient I did discuss this with her, and she stated there is no way I am staying overnight. Figured out now, and let me go home. I cannot stay, I have pets to take care of and my son to take care of. Patient made it unequivocally clear that she would not be admitted tonight, and would like the treatments that she would need now to go home. We will give 20 mg of Lasix, breathing treatment, get chest x-ray laboratory workup, monitor closely and reassess. EKG does show inverted T waves but no evidence of STEMI or ST elevation or depression. 4 PM Chest x-ray negative for acute process, no evidence of pneumonia. Laboratory workup shows no white count or bandemia. VBG shows elevated pCO2 level however it appears chronic with a bicarb of 32, and a pH normal at 7.32. Suspect mild acute on chronic component. No evidence clinically of hypercarbia causing altered mental status though. The remainder of her laboratory workup appears stable. Her troponins are normal both for the initial and repeat. proBNP is high at 2449 suggestive of mild CHF which correlates clinically. After 20 mg of Lasix and a breathing treatment the patient's wheezes have notably improved, oxygenation is 89% on room air. She feels much better. She has urinated multiple times and the swelling is gone down in her legs. Patient again made it unequivocally clear that she would like to leave right away and would not be staying at the ED any longer. I discussed my recommendations for staying overnight, and she states that I can keep taking my breathing treatments at home and I can pee at home. I do not need to be here for that. I will give the patient Lasix for home use, will recommend 20 mg daily for the next couple of days, and then 20 mg as needed as needed for edema. Patient does not have a nebulizer, but she wants to use a nebulizer that was used here. We will send her home with the plastic pieces, she will attach this to her home oxygen. I recommend that she continues to titrate her oxygen to maintain a saturation of 90 to 92%. She understands this. She will be given a prescription for nebulizers at home, and recommendations for continued use of her normal inhalers. Patient will be discharged home respecting her wishes and understanding the risks that this entails. She has close follow-up with her primary care provider next week. I have extensively reviewed the treatment plan and discharge instructions with the patient and their family. I have addressed all patient concerns at this time. The patient and family was made aware of what symptoms to monitor for that would warrant a return to the emergency department. Discussed the plan with the patient and family, they demonstrate verbal understanding and agreement with our assessment and plan at this time. The documentation in this chart was dictated using [employer] dictation software. Please excuse any dictation errors. FINDINGS: 2 views: Size normal. The mediastinum is not widened. There is no evidence of pulmonary edema, as per request. Mild increased markings in the lingular segment of the left lung appear unchanged from previous. Right lung remains clear. No pleural effusions. IMPRESSION: No evidence of pulmonary edema, as per request. Subtle increased markings in the lingular segment of the left lung. Similar to previous. No pleural effusions. PFSH All Active Problems (Updated 05/06/25 @ 16:05 by Eloy Sinha DO) Hypoxemia (Acute) COPD exacerbation (Acute) Peripheral edema (Acute) Tendonitis of left rotator cuff (Acute) Nicotine dependence (Acute) COPD exacerbation (Acute) Asthma (Chronic) Hypoxia (Acute) Medical History COPD (chronic obstructive pulmonary disease) Social History Smoking/Tobacco Use Status: Current every day Tobacco Type: cigarettes Smoking risk assessment performed?: Yes Alcohol Intake: never Drug use: Never Substance use type: marijuana Current gender identity: female Do you feel safe at home: Yes Do you feel safe in your relationship?: Yes
[2025-05-06 14:18] LABS: Troponin I 18 ng/L (<or=51)
[2025-05-06 14:32] VITALS: BP 117/84; PULSE 96; RESP 20; O2SAT 89
== END 2025-05-06 14:46 | disposition home or self-care (01) ==
PROVIDERS: Emergency Provider Student in an Organized Health Care Education/Training Program; PCP Nurse Practitioner Family
DX: R60.0 Localized edema (principal); J44.1 Chronic obstructive pulmonary disease with (acute) exacerbation; R09.02 Hypoxemia
CPT/HCPCS: 94640; 36415; 96374; 80053; 82805; 93005; 99285; 71046; 83880; 84484; 85025; 85610; 85730; 93010; 99284; J1938; J7620

== ENCOUNTER → 2025-08-04 00:20 | Outpatient (CLI) | payer MEDICARE, MEDICAID, SELFPAY ==
--- NOTE | 2025-08-04 | DI.US_ITS ---
APPROVED REPORT EXAM: Comprehensive 2D, Doppler, and color-flow Echocardiogram Patient Location: Out-Patient Wine Sales Representative: Gretel Manrique RT (R) (CT) RD Rhythm: NSR Indications: Heart failure. Other Information Study Quality: Technically Difficult Conclusion Mild concentric left ventricular hypertrophy. Ejection fraction is greater than 70% with hyperdynamic wall motion. Diastolic function is normal for age. There are no wall motion abnormalities Normal right ventricular size and function Both atria are normal in size The aortic valve is probably trileaflet. There is mild aortic stenosis. Mean gradient is 12 mmHg. No aortic regurgitation There is no additional significant valvular disease Wall motion Left Ventricle The left ventricle is normal size. Left ventricular systolic function is hyperdynamic. Mild concentric left ventricular hypertrophy. There is normal LV segmental wall motion. Grade I diastolic dysfunction. There is no ventricular septal defect visualized. LVEF is >70%. Right Ventricle The right ventricle is normal size. The right ventricular systolic function is normal. There is normal right ventricular wall thickness. Atria The left atrium size is normal. The right atrium size is normal. Small PFO Aortic Valve Aortic valve is probably trileaflet. Appears to open well. Possible dynamic LVOT obstruction in presence of systolic anterior motion of anterior mitral valve leaflet tip. Peak aortic valve gradient is 30.2 mmHg. Highest mean aortic valve gradient is 11.9 mmHg. No aortic regurgitation is present. Mitral Valve The mitral valve is normal in structure. Systolic anterior motion of the mitral valve is present. No evidence of mitral valve stenosis. No Mitral Regurgitation. Tricuspid Valve The tricuspid valve is normal in structure. There is no tricuspid valve stenosis. Trace tricuspid regurgitation. Pulmonic Valve The pulmonary valve is normal in structure. There is no pulmonic valvular stenosis. Trace to mild pulmonic regurgitation. Great Vessels The aortic root is normal in size. The pulmonary artery is normal. The ascending aorta is normal in size. IVC is normal in size and collapses >50% with inspiration. Pericardium Prominent anterior epicardial fat pad is present. 2D Dimensions IVSD d PLAX 1.34 cm F: 0.6-1.0 Ao Root d 2.93 cm F: 2.7 - 3.3 LVPW d PLAX 1.04 cm F: 0.6 - 1.0 Ao Asc Diam d 3.14 cm F: 2.3 - 3.1 LVID d PLAX 3.78 cm F: 3.8 - 5.2 Prox Ao Arch 1.8 cm LVDs 2.09 cm F: 2.2 - 3.5 IVC Diam exp d SLAX 1.4 cm LV EF Teichholz 76.7 % FS 44.71 % LV EDV (Teich) 61.4 mL LV ESV (Teich) 14.3 mL M-Mode TAPSE 1.20 cm (M/F) >1.7 Auto EF LV EDV A4C 58.9 mL LV EDV A2C 44.0 mL LV EDV BP 51.0 mL LV ESV A4C 13.2 mL LV ESV A2C 10.9 mL LV ESV BP 12.0 mL LVEF(%) A4C 77.5 % LVEF(%) A2C 75.2 % LVEF(%) BP 76.4 % LV SV A4C 45.7 ml LV SV A2C 33.1 ml LV SV BP 39.0 ml LV CO A4C 4.1 L/min LV CO A2C 3.0 L/min LV CO BP 3.6 L/min HR A4C 90.24 BPM HR A2C 91.37 BPM LV EDV Index (BP) LV Volumes - Method of Disks (Holder's) Single Plane 2D LV Volumes Biplane 2D LV Volumes LV EDV A4C 43.2 mL LV EDV BP 35.41 mL F: 46 - 106 LV ESV A4C 8.4 mL LV ESV BP 6.6 mL LVEF(%) A4C 80.6 % LVEF(%) BP 81.37 % F: 54 - 74 LV EDV A2C 28.1 mL LV EDV BP Index 18.73 mL/m2 F: 29 - 61 LV ESV A2C 4.7 mL SV BP LVEF(%) A2C 83.2 % SV Index LV Strain Long Pk Overal Avg (s) 18.94 LA Volume LA Length A4C 5.0 cm LA Length A2C 4.9 cm LA Area A4C s 10.53 cm2 LA Area A2C s 12.56 cm2 LA Vol A4C A-L 18.96 mL LA Vol A2C A-L 27.11 mL LA Vol Biplane A-L 22.7 mL LA Vol/BSA A4C A-L LA Vol/BSA A2C A-L LA Vol/BSA BP A-L 12.1 mL/m2 LA Vol A4C MOD 17.8 mL LA Vol A2C MOD 25.5 mL LA Vol BP MOD 21.2 mL LV Diastology MV E' medial 0.076 (>0.07 m/s) MV E Vmax 0.75 (0.4-1.3 m/s) MV E/E' MED 9.78 (<14) MV A Vmax 0.80 (0.4-1.3 m/s) MV E' lateral 0.074 (>0.1 m/s) E/A Ratio 0.9 MV E/E' LAT 10.10 (<14) MV E' Average 0.075 m/s MV E/E'(average) 9.93 Aortic Valve AoV Vmax 2.75 m/s LVOT Vmax 1.20 m/s AoV Peak Grad 30.2 mmHg LVOT Peak Grad 5.8 mmHg AoV Area (Vmax) 0.94 cm2 LVOT VTI 0.225 m AoV VTI 0.351 m LVOT Mean Grad 3.0 mmHg AoV Mean Adryan. 1.60 m/s LVOT SV 48.19 mL AoV Mean Grad 11.9 mmHg LVOT Diam s 1.65 cm AoV Area (VTI) 1.37 cm2 AV Regurg Peak Gr. 30.20 mmHg Velocity Ratio 0.44 Mitral Valve MV DT 131 (160-240 msec) Pulm Vein s 0.74 m/s Pulm Vein d 0.39 m/s Pulm Vein a 0.55 m/s Tricuspid Valve RA Pressure 3.00 mmHg TV S' 0.13 m/s
== END ==
LOC: DI 00:20
PROVIDERS: PCP Nurse Practitioner Family; Visit Provider Nurse Practitioner Family
DX: I50.9 Heart failure, unspecified (principal); I51.7 Cardiomegaly
CPT/HCPCS: 93306